=== PATIENT | female | born 1975 | race Caucasian/White ===

== ENCOUNTER 2017-12-20 09:12 | Emergency (ER) | payer SELFPAY ==
[2017-12-20] MEDS ORDERED: MORPHINE 4 MG/ML SYR ONE (09:55)
[2017-12-20] MEDS ORDERED: ONDANSETRON 4 MG/2 ML VIAL ONE (09:55)
[2017-12-20] MEDS ORDERED: NA CHLORIDE 0.9% 1,000 ML ONE (09:55)
[2017-12-20 10:09] LABS: Glomerular Filtration Rate > 60 mL/min (>60)
[2017-12-20 10:11] LABS: Bicarbonate 23 mEq/L (21-31); Glucose Level 119 mg/dL (65-120); Potassium 3.4 mEq/L (3.6-5.0); Sodium Level 137 mEq/L (135-145)
[2017-12-20 10:17] LABS: ALT/SGPT 19 IU/L (10-60); AST/SGOT 38 IU/L (10-42); Albumin 3.6 g/dL (3.2-5.5); Alkaline Phosphatase 110 IU/L (42-121); BUN Blood Urea Nitrogen 7 mg/dL (6-20); Bilirubin Direct 0.1 mg/dL (0-0.2); Bilirubin Total 0.3 mg/dL (0.3-1.2); Glomerular Filtration Rate > 90 mL/min (=/>90)
[2017-12-20 10:31] LABS: Absolute Lymphocytes (CBC) 0.5 K/uL (0.7-4.9); Absolute Monocytes 1.1 K/uL (0.1-1.3); Absolute Neutrophil 6.7 K/uL (1.8-8.0); Basophils % 0.5 % (0-1.3); Eosinophils % 0.1 % (0-4.4); Hematocrit 42.2 % (36.0-45.0); MCH 33.5 pg (27.0-35.0); MCV 99.4 fL (80-100); Monocytes % 13.2 % (3.3-12.3); RBC Red Blood Cell Count 4.25 M/uL (3.86-4.86)
[2017-12-20 11:06] LABS: Urine Blood 2+ (NEG); Urine Glucose NEGATIVE (NEG); Urine Protein 1+ (NEG); Urine pH 6.5 (5.0-7.0)
[2017-12-20 11:13] LABS: Urine Bacteria >50 /HPF (<20); Urine Culture Reflex Order REFLEXED
--- NOTE | 2017-12-20 11:15 | RAD REPORT ---
EXAM DESCRIPTION: CT - Abdomen Pelvis W Contrast - 12/20/2017 11:04 am CLINICAL HISTORY: Abdominal pain, dysuria COMPARISON: None. TECHNIQUE: Biphasic, helical CT imaging of the abdomen and pelvis was performed following 100 ml non -ionic IV contrast. Oral contrast was given. All CT scans are performed using dose optimization technique as appropriate and may include automated exposure control or mA/KV adjustment according to patient size. FINDINGS: No suspicious findings in the lung bases. No focal liver lesions are seen within an upper normal sized liver. Attenuation indicates a mild diff use fatty infiltration. No splenomegaly or focal splenic finding. Pancreas and peripancreatic tissues are unremarkable. Gallbladder is distended but not dilated. No mass or wall thickening seen. Gallsto lianna can be occult on CT imaging. No biliary tree dilatation. Multiple areas of heterogeneous, diminished enhancement are seen throughout the right renal parenchym a. Normal enhancement pattern seen in the left kidney. In the right kidney there is mild edema change and trace stranding in the perinephric fat. No obstructing or nonobstructing calculi. No solid mass of the kidney seen. No adrenal abnormality seen. Urinary bladder is fully contracted. This limits as sessment put wall thickening or enhancement are not suspected. Uterus and ovaries show no suspicious findings. Multiple phleboliths are present. No gastric dilatation, wall thickening or mass. No small bowel abnormality. Cecum is low-lying in the pelvis abutting the dome of the contracted bladder. There is a large amount of stool distending the cecum in the patient has overall moderately large stool volume from cecum to splenic flexure. No colo n wall thickening, mass or edema. The appendix is normal. No free air, free fluid or pneumatosis. No inflammatory stranding other than the trace amount near the right kidney. No hernia, mass or bulky lymphadenopathy. No suspicious bony findings. IMPRESSION: Moderate severity right-sided pyelonephritis with no abscess or other complicating facto r. No hydronephrosis of either kidney. No acute left renal finding. Limited assessment of contracted eric dder. No significant cystitis or mass identifiable. Large amount of stool mildly dilates the cecum which is low lying along the floor the pelvis. Patient overall has a large amount of stool filling the colon from cecum to splenic flexure.
--- NOTE | 2017-12-20 11:50 | EDPHYS ---
Physician Documentation [facility] Name: Abby Hughes Age: 42 yrs Sex: Female : 1975 Arrival Date: 12/20/2017 Time: 09:16 Bed 13 Private MD: ED Physician Marvel Paez HPI: 12/20 09:55 This 42 yrs old Female presents to ER via Ambulatory with complaints of left jr8 sided flank pain. 09:55 The patient complains of pain in the left flank. The pain radiates. Onset: The jr8 symptoms/episode began/occurred acutely, 3 day(s) ago. Modifying factors: The symptoms are alleviated by nothing. the symptoms are aggravated by nothing. Associated signs and symptoms: Pertinent positives: dysuria, fever, nausea. Severity of pain: At its worst the pain was moderate in the emergency department the pain is unchanged. The patient has not experienced similar symptoms in the past. The patient has not recently seen a physician. 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 - Social history:: Smoking status: Patient/guardian denies using tobacco. ROS: 09:55 Eyes: Negative for injury, pain, redness, and discharge, ENT: Negative for injury, jr8 pain, and discharge, Neck: Negative for injury, pain, and swelling, Cardiovascular: Negative for chest pain, palpitations, and edema, Respiratory: Negative for shortness of breath, cough, wheezing, and pleuritic chest pain, MS/Extremity: Negative for injury and deformity, Skin: Negative for injury, rash, and discoloration, Neuro: Negative for headache, weakness, numbness, tingling, and seizure. 09:55 Abdomen/GI: Positive for abdominal pain, nausea, vomiting, Negative for diarrhea, abdominal distension, anorexia, dysphagia, hematemesis, black/tarry stool, rectal pain, rectal bleeding, bowel incontinence, flatulence. 09:55 Back: Positive for flank pain, on the left. 09:55 : Positive for burning with urination, Negative for small amounts, vaginal discharge. Exam: 09:55 Eyes: Pupils equal round and reactive to light, extra-ocular motions intact. Lids and jr8 lashes normal. Conjunctiva and sclera are non-icteric and not injected. Cornea within normal limits. Periorbital areas with no swelling, redness, or edema. ENT: Nares patent. No nasal discharge, no septal abnormalities noted. Tympanic membranes are normal and external auditory canals are clear. Oropharynx with no redness, swelling, or masses, exudates, or evidence of obstruction, uvula midline. Mucous membranes moist. Neck: Trachea midline, no thyromegaly or masses palpated, and no cervical lymphadenopathy. Supple, full range of motion without nuchal rigidity, or vertebral point tenderness. No Meningismus. Cardiovascular: Regular rate and rhythm with a normal S1 and S2. No gallops, murmurs, or rubs. Normal PMI, no JVD. No pulse deficits. Respiratory: Lungs have equal breath sounds bilaterally, clear to auscultation and percussion. No rales, rhonchi or wheezes noted. No increased work of breathing, no retractions or nasal flaring. Skin: Warm, dry with normal turgor. Normal color with no rashes, no lesions, and no evidence of cellulitis. MS/ Extremity: Pulses equal, no cyanosis. Neurovascular intact. Full, normal range of motion. Neuro: Awake and alert, GCS 15, oriented to person, place, time, and situation. Cranial nerves II-XII grossly intact. Motor strength 5/5 in all extremities. Sensory grossly intact. Cerebellar exam normal. Normal gait. 09:55 Abdomen/GI: Inspection: abdomen appears normal, Bowel sounds: active, all quadrants, Palpation: soft, in all quadrants, moderate abdominal tenderness, in the anterior aspect of left lateral abdomen and left lower quadrant, mass, is not appreciated, rebound tenderness, is not appreciated, voluntary guarding, is not appreciated, involuntary guarding, is not appreciated, no appreciated organomegaly, Indicators: McBurney's point is not tender, Najera's sign is negative, Rovsing's sign is negative, Liver: no appreciated palpable abnormalities, tenderness, is not appreciated. 09:55 Back: pain, that is moderate, of the left flank, ROM is normal, normal spinal alignment noted, CVA tenderness, that is mild, is noted on the left, vertebral tenderness, is not appreciated. Vital Signs: 09:22 BP 148 / 111; Pulse 126; Resp 20; Temp 98.1(O); Pulse Ox 99% on R/A; Weight 58.97 kg rb1 (R); Height 5 ft. 2 in. (157.48 cm) (R); Pain 9/10; 10:20 BP 143 / 91; Pulse 91; Resp 18; Pulse Ox 98% on R/A; Pain 6/10; rb1 11:19 BP 145 / 93; Pulse 89; Resp 17; Pulse Ox 100% on R/A; rb1 12:18 BP 143 / 91; Pulse 62; Resp 16; Pulse Ox 98% on R/A; rb1 09:22 Body Mass Index 23.78 (58.97 kg, 157.48 cm) rb1 MDM: 09:31 Patient medically screened. jr8 11:48 Differential diagnosis: nephrolithiasis, pyelonephritis, UTI, diverticulitis, non jr8 specific abdominal pain, ovarian mass or cyst, constipation. Data reviewed: vital signs, nurses notes, lab test result(s), radiologic studies, CT scan, and as a result, I will discharge patient. Data interpreted: Pulse oximetry: on room air is 98 %. Interpretation: normal. Counseling: I had a detailed discussion with the patient and/or guardian regarding: the historical points, exam findings, and any diagnostic results supporting the discharge/admit diagnosis, lab results, radiology results, the need for outpatient follow up, a family practitioner, to return to the emergency department if symptoms worsen or persist or if there are any questions or concerns that arise at home. 11:48 Special discussion: Based on the patient's Hx, exam, and Dx evaluation, there is no jr8 indication for emergent surgery or inpatient Tx. It is understood by the patient/guardian that if the Sx's persist or worsen they need to return immediately for re-evaluation. I have referred the patient to see his PCP for further evaluation of high blood pressure. 12/20 09:31 Order name: Basic Metabolic Panel; Complete Time: 10:8 12/20 09:31 Order name: CBC with Diff; Complete Time: :8 12/20 09:31 Order name: Creatinine for Radiology; Complete Time: 10:8 12/20 09:31 Order name: Hepatic Function; Complete Time: : jr8 12/20 09:31 Order name: Urine Microscopic Only; Complete Time: 11:13 8 12/20 10:48 Order name: Urine Dipstick--Ancillary (enter results); Complete Time: 11:07 12/20 10:10 Order name: CT Abd/Pelvis - W/Contrast; Complete Time: 11:18 8 12/20 10:48 Order name: Urine --Ancillary (enter results); Complete Time: 11:07 12/20 11:15 Order name: Urine Culture [facility] 12/20 09:31 Order name: Urine Test (obtain specimen); Complete Time: 10:36 [facility] 12/20 09:31 Order name: IV Saline Lock; Complete Time: 09:52 12/20 09:31 Order name: Labs collected and sent; Complete Time: 09:52 12/20 09:31 Order name: Urine Dipstick-Ancillary (obtain specimen); Complete Time: 10:36 [facility] 12/20 10:12 Order name: Labs - recollect needed; Complete Time: 10:38 bd Administered Medications: 09:45 Drug: NS 0.9% 1000 ml Route: IV; Rate: 1000 ml; Site: left antecubital; rb1 10:46 Follow up: IV Status: Completed infusion rb1 09:45 Drug: morphine 4 mg Route: IVP; Site: left antecubital; rb1 10:00 Follow up: Response: No adverse reaction; Pain is decreased rb1 09:45 Drug: Zofran 4 mg Route: IVP; Site: left antecubital; rb1 10:00 Follow up: Response: No adverse reaction; Nausea is decreased rb1 11:30 Drug: Potassium Chloride 40 mEq Route: PO; rb1 12:00 Follow up: Response: No adverse reaction rb1 11:30 Drug: Rocephin 1 grams Route: IV; Rate: calculated rate; Site: left antecubital; rb1 11:50 Drug: Demerol 25 mg Route: IVP; Site: left antecubital; rb1 12:18 Follow up: Response: No adverse reaction; Pain is decreased rb1 Disposition: 14:44 Co-signature as Attending Physician, Marvel Paez MD. Disposition: 12/20/17 11:50 Discharged to Home. Impression: Acute tubulo-interstitial nephritis, Constipation. - Condition is Stable. - Discharge Instructions: Constipation, Adult, Pyelonephritis, Adult. - Prescriptions for Augmentin 875- 125 mg Oral Tablet - take 1 tablet by ORAL route every 12 hours for 10 days; 20 tablet. Zofran 4 mg Oral Tablet - take 1 tablet by ORAL route every 12 hours As needed; 20 tablet. Tramadol 50 mg Oral Tablet - take 1 tablet by ORAL route every 8 hours as needed; 12 tablet. Miralax 17 gram/dose Oral - take 1 packet by ORAL route once daily dilute powder in 8 ounces of water or juice; 1 box. - Medication Reconciliation Form, Thank You Letter, Antibiotic Education, Prescription Opioid Use form. - Follow up: Private Physician; When: 1 - 2 days; Reason: Recheck today's complaints, Continuance of care, Re-evaluation by your physician. - Problem is new. - Symptoms have improved. Signatures: Dispatcher [employer] EDMS Valarie Paul Josh, PA PA jr8 Linda Mckenna, RN RN rb1 Marvel Paez MD MD
--- NOTE | 2017-12-20 11:50 | ER ---
Nurse's Notes [facility] Name: Abby Hughes Age: 42 yrs Sex: Female : 1975 Arrival Date: 12/20/2017 Time: 09:16 Bed 13 Private MD: Diagnosis: Acute tubulo-interstitial nephritis;Constipation Presentation: 12/20 09:22 Presenting complaint: Patient states: I have had pain when I go pee since Sunday. I rb1 have a sharp shooting pain that goes down my left leg. Transition of care: patient was not received from another setting of care. Onset of symptoms was December 17, 2017. Care prior to arrival: None. : Method Of Arrival: Ambulatory [facility] 09: Acuity: LIZZIE 3 rb1 Triage Assessment: : General: Appears uncomfortable, Behavior is calm, cooperative, Reports fever for 2-3 rb1 days. Pain: Complains of pain in suprapubic area, right lower quadrant and left lower quadrant Pain radiates to left leg Pain currently is 9 out of 10 on a pain scale. Pain began 2-3 days ago. Neuro: Level of Consciousness is awake, alert, obeys commands, Oriented to person, place, time, situation. Cardiovascular: Capillary refill < 3 seconds is brisk in bilateral fingers. Respiratory: Airway is patent Respiratory effort is even, unlabored, Respiratory pattern is regular, symmetrical. GI: Reports nausea. : Reports pain with urination. Derm: Skin is pink, warm \T\ dry. Musculoskeletal: Range of motion: intact in all extremities. 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 - Social history:: Smoking status: Patient/guardian denies using tobacco. Screenin: Abuse screen: Denies threats or abuse. Nutritional screening: No deficits noted. rb1 Tuberculosis screening: No symptoms or risk factors identified. Fall Risk None identified. Assessment: : General: See triage assessment. rb1 09: GI: Bowel sounds present X 4 quads. Abd is soft Abdomen is tender to palpation in rb1 suprapubic area and left lower quadrant. 10:00 Reassessment: Patient appears in no apparent distress at this time. Patient and/or rb1 family updated on plan of care and expected duration. Pain level reassessed. Patient is alert, oriented x 3, equal unlabored respirations, skin warm/dry/pink. 10:26 Reassessment: Called lab to let them know that blood was recollected through the second rb1 IV, it had the stickers without the bar code. Lab will check the tubes and let us know if a recollect is still needed. 10:35 Reassessment: Kristy, lab support technician called lab to confirm that they received the recollect labs rb1 and AJ said yes they had it. 11:30 Reassessment: Patient appears in no apparent distress at this time. Patient and/or rb1 family updated on plan of care and expected duration. Pain level reassessed. Patient is alert, oriented x 3, equal unlabored respirations, skin warm/dry/pink. pain 8/10. 12:16 Reassessment: Patient appears in no apparent distress at this time. No changes from rb1 previously documented assessment. Vital Signs: 09:22 BP 148 / 111; Pulse 126; Resp 20; Temp 98.1(O); Pulse Ox 99% on R/A; Weight 58.97 kg rb1 (R); Height 5 ft. 2 in. (157.48 cm) (R); Pain 9/10; 10:20 BP 143 / 91; Pulse 91; Resp 18; Pulse Ox 98% on R/A; Pain 6/10; rb1 11:19 BP 145 / 93; Pulse 89; Resp 17; Pulse Ox 100% on R/A; rb1 12:18 BP 143 / 91; Pulse 62; Resp 16; Pulse Ox 98% on R/A; rb1 09:22 Body Mass Index 23.78 (58.97 kg, 157.48 cm) rb1 ED Course: 09:16 Patient arrived in ED. sb2 09:21 Linda Mckenna, TANYA is Primary Nurse. rb1 09:21 Casey Martin PA is PHCP. jr8 09:21 Marvel Paez MD is Attending Physician. jr8 09:22 Arm band placed on left wrist. rb1 09:22 Patient has correct armband on for positive identification. Placed in gown. Bed in low rb1 position. Call light in reach. Side rails up X 1. Pulse ox on. NIBP on. 09:28 Triage completed. rb1 09:45 Inserted saline lock: 22 gauge in left antecubital area, using aseptic technique. Blood rb1 collected. 10:01 Initial lab(s) drawn, by me, sent to lab. Missed attempt(s): 20 gauge in right ag antecubital area. Bleeding controlled, band aid applied, catheter tip intact. 10:21 Radiology exam delayed due to test not completed at this time. vr 11:04 CT Abd/Pelvis - W/Contrast In Process Unspecified. EDMS 12:17 No provider procedures requiring assistance completed. IV discontinued, intact, rb1 bleeding controlled, No redness/swelling at site. Pressure dressing applied. Administered Medications: 09:45 Drug: NS 0.9% 1000 ml Route: IV; Rate: 1000 ml; Site: left antecubital; rb1 10:46 Follow up: IV Status: Completed infusion rb1 09:45 Drug: morphine 4 mg Route: IVP; Site: left antecubital; rb1 10:00 Follow up: Response: No adverse reaction; Pain is decreased rb1 09:45 Drug: Zofran 4 mg Route: IVP; Site: left antecubital; rb1 10:00 Follow up: Response: No adverse reaction; Nausea is decreased rb1 11:30 Drug: Potassium Chloride 40 mEq Route: PO; rb1 12:00 Follow up: Response: No adverse reaction rb1 11:30 Drug: Rocephin 1 grams Route: IV; Rate: calculated rate; Site: left antecubital; rb1 11:50 Drug: Demerol 25 mg Route: IVP; Site: left antecubital; rb1 12:18 Follow up: Response: No adverse reaction; Pain is decreased rb1 Outcome: 11:50 Discharge ordered by MD. fuentes 12:17 Discharged to home ambulatory, with significant other. rb1 12:17 Condition: stable 12:17 Discharge instructions given to patient, Instructed on discharge instructions, follow up and referral plans. medication usage, Demonstrated understanding of instructions, follow-up care, medications, Prescriptions given X 4. 12:17 Patient left the ED. rb1 Signatures: Dispatcher [employer] EDMS Helen Salazar Josh, PA PA jr8 Kristy Ferrell Rebecca, RN RN rb1 Balbina Laboy sb2 Corrections: (The following items were deleted from the chart) 12: 12:20 Patient left the ED. rb1 rb1
[2017-12-20] MEDS ORDERED: POTASSIUM CL SA 10 MEQ TAB PO ONE (11:51)
[2017-12-20] MEDS ORDERED: CEFTRIAXONE/SWI 1gm 1 GM/10 ML SYR ONE (11:52)
[2017-12-20] MEDS ORDERED: MEPERIDINE HCL 25 MG/0.5 ML ONE (12:04)
== END 2017-12-20 12:20 | disposition home or self-care (01) ==
LOC: ER 09:12
DX: N12 Tubulo-interstitial nephritis, not specified as acute or chronic (principal); K59.00 Constipation, unspecified
CPT/HCPCS: 36415; 74177; 80048; 80076; 81003; 81015; 81025; 85025; 87077; 87086; 87088; 87186; 96361; 96374; 96375; 99284; J0696; J2175; J2405; J7030; Q9967

== ENCOUNTER 2018-09-10 18:27 | Observation (INO) | payer SELFPAY ==
[2018-09-10] MEDS ORDERED: LORazepam 2 MG/ML VIAL ONE ×2 (18:58→22:34)
[2018-09-10] MEDS ORDERED: MULTIVITAMINS 10 ML VIAL (INJ) IV ONE (18:58)
[2018-09-10] MEDS ORDERED: THIAMINE 200 MG/2 ML INJ ONE ×2 (18:58→19:19)
[2018-09-10] MEDS ORDERED: NA CHLORIDE 0.9% 1,000 ML ONE ×2 (18:58→19:20)
[2018-09-10] MEDS ORDERED: ONDANSETRON 4 MG/2 ML VIAL ONE (19:19)
[2018-09-10] MEDS ORDERED: FAMOTIDINE 20 MG/2 ML VIAL IV ONE (19:19)
[2018-09-10 19:27] LABS: Absolute Monocytes 0.8 K/uL (0.1-1.3); Absolute Neutrophil 7.4 K/uL (1.8-8.0); Basophils % 0.8 % (0-1.3); Eosinophils % 0.1 % (0-4.4); Hematocrit 48.3 % (36.0-45.0); Lymphocytes % 10.5 % (15.3-44.8); MCH 33.5 pg (27.0-35.0); MCV 100.1 fL (80-100); MPV 8.6 fL (7.6-11.3); Monocytes % 8.4 % (3.3-12.3); RBC Red Blood Cell Count 4.82 M/uL (3.86-4.86)
[2018-09-10 19:36] LABS: Protime INR 0.96
[2018-09-10 19:53] LABS: ALT/SGPT 84 U/L (12-78); AST/SGOT 115 U/L (15-37); Albumin 4.3 g/dL (3.4-5.0); Alkaline Phosphatase 114 U/L (45-117); BUN Blood Urea Nitrogen 14 mg/dL (7-18); Bicarbonate 25 mmol/L (21-32); Bilirubin Direct 0.3 mg/dL (0-0.2); Bilirubin Total 1.1 mg/dL (0.2-1.0); Glucose Level 91 mg/dL (74-106); Lipase 116 U/L (73-393); NT PRO-BNP 23 pg/mL (<125); Potassium 3.8 mmol/L (3.5-5.1); Protein, Total 8.9 g/dL (6.4-8.2); Sodium Level 135 mmol/L (136-145); Troponin (Emerg Dept Use Only) < 0.02 ng/mL (0.0-0.045)
--- NOTE | 2018-09-10 19:55 | RAD REPORT ---
EXAM DESCRIPTION: RAD - Chest Single View - 09/10/2018 7:43 pm CLINICAL HISTORY: Left-sided chest and abdominal pain COMPARISON: None. TECHNIQUE: AP portable chest image was obtained 1933 hours . FINDINGS: Lungs are clear. Heart and vasculature are normal. No measurable pleural effusion and no p neumothorax. No acute bony abnormality seen. No acute aortic findings suspected. IMPRESSION: No acute cardiopulmonary process.
[2018-09-10 20:05] LABS: Barbiturates NEGATIVE (NEGATIVE); Benzodiazepines NEGATIVE (NEGATIVE); Cocaine NEGATIVE (NEGATIVE); METHAMPHETAM NEGATIVE (NEGATIVE); Methadone NEGATIVE (NEGATIVE); Opiates NEGATIVE (NEGATIVE); Phencyclidine NEGATIVE (NEGATIVE); THC Cannibis POSITIVE (NEGATIVE)
--- NOTE | 2018-09-10 20:08 | ER ---
Nurse's Notes [facility] Name: Abby Hughes Age: 43 yrs Sex: Female : 1975 Arrival Date: 09/10/2018 Time: 18:30 Bed 2 Private MD: None, None Diagnosis: Alcohol abuse;Alcohol dependence with withdrawal;Abdominal tenderness;Essential (primary) hypertension;Vomiting Presentation: 09/10 18:34 Presenting complaint: Patient states: pain to L abdomen/side, vomiting, headache, and ch high blood pressure for the past 4 days. its all just getting worse. Transition of care: patient was not received from another setting of care. Onset of symptoms was September 06, 2018. Risk Assessment: Do you want to hurt yourself or someone else? Patient reports no desire to harm self or others. Initial Sepsis Screen: Does the patient meet any 2 criteria? No. Patient's initial sepsis screen is negative. Does the patient have a suspected source of infection? No. Patient's initial sepsis screen is negative. Care prior to arrival: None. 18:34 Method Of Arrival: Ambulatory 18:34 Acuity: LIZZIE 2 Triage Assessment: 18:35 General: Appears in no apparent distress. uncomfortable, Behavior is cooperative, ch agitated, restless. Pain: Complains of pain in posterior aspect of left lateral abdomen, anterior aspect of left lateral abdomen, left upper quadrant and left lower quadrant Pain currently is 8 out of 10 on a pain scale. GI: Reports lower abdominal pain, upper abdominal pain. 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 - Social history:: Smoking status: Patient/guardian denies using tobacco, Patient uses alcohol, on a daily basis. claims drinking about a 6 pack/day. for about 6 months on a "naqvi". - Ebola Screening: : Patient negative for fever greater than or equal to 101.5 degrees Fahrenheit, and additional compatible Ebola Virus Disease symptoms Patient denies exposure to infectious person Patient denies travel to an Ebola-affected area in the 21 days before illness onset No symptoms or risks identified at this time. - Family history:: not pertinent. Screenin:08 Abuse screen: Denies threats or abuse. Nutritional screening: No deficits noted. jd3 Tuberculosis screening: No symptoms or risk factors identified. Fall Risk Ambulatory Aid- None/Bed Rest/Nurse Assist (0 pts). Gait- Normal/Bed Rest/Wheelchair (0 pts) Mental Status- Oriented to own ability (0 pts). Total Cook Fall Scale indicates No Risk (0-24 pts). Assessment: 18:42 Reassessment: erp gives verbal orders, pt medicated. seizure precautions in place. 20:06 Reassessment: Patient appears in no apparent distress at this time. No changes from [facility] previously documented assessment. Patient and/or family updated on plan of care and expected duration. Pain level reassessed. Patient is alert, oriented x 3, equal unlabored respirations, skin warm/dry/pink. GI: Abdomen is round non-distended, Reports nausea. 22:18 Reassessment: Patient appears in no apparent distress at this time. No changes from [facility] previously documented assessment. Patient and/or family updated on plan of care and expected duration. Pain level reassessed. Patient is alert, oriented x 3, equal unlabored respirations, skin warm/dry/pink. 22:25 Reassessment: Patient is alert, oriented x 3, equal unlabored respirations, skin bb warm/dry/pink. IV site intact, patent with fluids infusing, spouse at bedside. 22:30 Reassessment: report called to Ly MARTÍNEZ for room 216. Vital Signs: 18:35 BP 185 / 116; Pulse 135; Resp 22; Temp 99.1; Pulse Ox 99% on R/A; Weight 63.5 kg; Height 5 ft. 2 in. (157.48 cm); Pain 8/10; 20:07 Pulse 107; Resp 15 S; Pulse Ox 100% on R/A; jd3 22:18 BP 117 / 74; Pulse 116; Resp 20 S; Pulse Ox 98% on R/A; jd3 22:25 BP 147 / 110; Pulse 114; Resp 18 S; Temp 98.8(O); Pulse Ox 97% on R/A; bb 18:35 Body Mass Index 25.61 (63.50 kg, 157.48 cm) ED Course: 18:30 Patient arrived in ED. sb2 18:31 None, None is Private Physician. sb2 18:35 Triage completed. ch 18:35 Arm band placed on left wrist. Patient placed in an exam room, on a stretcher. ch 18:42 Patient has correct armband on for positive identification. Placed in gown. Bed in low ch position. Call light in reach. Side rails up X2. Adult w/ patient. Seizure precautions initiated. 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 Pulse ox on. NIBP on. Warm blanket given. 18:42 Inserted saline lock: 18 gauge in left antecubital area, using aseptic technique. Blood ch collected. 18:50 Edvin Ashford MD is Attending Physician. [facility] 19:02 Radiology exam delayed due to lab results not completed at this time. (BUN/Creatinine). nj 19:43 XRAY Chest (1 view) In Process Unspecified. EDMS 20:05 Ivan Alejandro RN is Primary Nurse. jd3 20:06 Kobe Aaorn MD is Hospitalizing Provider. jeanine 20:13 CT Aorta for Dissection In Process Unspecified. EDMS 22:31 No provider procedures requiring assistance completed. Patient admitted, IV remains in bb place. Administered Medications: 18:42 Drug: Ativan 2 mg Route: IVP; Site: left antecubital; ch 19:40 Follow up: Response: No adverse reaction jd3 18:42 Drug: Banana Bag - (NS 0.9% 1000 ml, foLIC Acid 1 mg, Thiamine 100 mg, Multivitamin 1 ch amp) Route: IV; Rate: 125 ml/hr; Site: left antecubital; 22:34 Follow up: Response: No adverse reaction; IV Status: Infusion continued upon admission jd3 19:28 Drug: Thiamine 100 mg Route: IV; Rate: bolus; Site: left antecubital; ak1 22:35 Follow up: Response: No adverse reaction; IV Status: Completed infusion jd3 19:28 Drug: NS 0.9% 1000 ml Route: IV; Rate: 1 bolus; Site: left antecubital; ak1 22:36 Follow up: Response: No adverse reaction; IV Status: Completed infusion jd3 19:28 Drug: Zofran 4 mg Route: IVP; Site: left antecubital; ak1 22:36 Follow up: Response: No adverse reaction jd3 19:28 Drug: Pepcid 20 mg Route: IVP; Site: left antecubital; ak1 22:37 Follow up: Response: No adverse reaction jd3 22:22 Not Given (Physician Discretion): fentaNYL (PF) 25 mcg IVP once jd3 22:23 Not Given (Physician Discretion): fentaNYL (PF) 25 mcg IVP once jd3 22:30 Drug: Ativan 2 mg Route: IVP; Site: left antecubital; jd3 22:38 Follow up: Response: No adverse reaction jd3 Outcome: 20:07 Decision to Hospitalize by Provider. jeanine 22:31 Admitted to Tele accompanied by tech, family with patient, via wheelchair, room 216, bb with chart, Report called to Ly MARTÍNEZ 22:31 Condition: stable 22:31 Instructed on the need for admit. 22:41 Patient left the ED. jd3 Signatures: Dispatcher [employer] EDMS Ashley Rhodes, RN RN Edvin Chandra MD MD cha Ballard, Brenda RN RN Sonya Coronel RN RN ak1 Allen Siddiqui Jonathon, RN RN Balbina Magana
--- NOTE | 2018-09-10 20:08 | EDPHYS ---
Physician Documentation [facility] Name: Abby Hughes Age: 43 yrs Sex: Female : 1975 Arrival Date: 09/10/2018 Time: 18:30 Bed 2 Private MD: None, None ED Physician Edvin Ashford HPI: 09/10 19:03 This 43 yrs old Female presents to ER via Ambulatory with complaints of Flank jeanine Pain, Vomiting. 19:03 The patient complains of pain in the left low back and left mid back. The pain radiates jeanine to the left low back and left mid back. Onset: The symptoms/episode began/occurred 1 day(s) ago. Modifying factors: The symptoms are alleviated by nothing. the symptoms are aggravated by movement, palpation/percussion. Associated signs and symptoms: Pertinent positives: dizziness, nausea, vomiting. Severity of pain: At its worst the pain was moderate in the emergency department the pain is unchanged. The patient has not experienced similar symptoms in the past. [employer]: 18:35 LMP 09/10/2018 ch Historical: - Allergies: 18:35 No Known Allergies; ch - Home Meds: 18:35 None [Active]; ch - PMHx: 18:35 Hypertension; Migraines; ch - PSHx: 18:35 ; ch 18:35 Tubal ligation; ch - Immunization history:: Adult Immunizations up to date, Flu vaccine is not up to date. - Social history:: Smoking status: Patient/guardian denies using tobacco, Patient uses alcohol, on a daily basis. claims drinking about a 6 pack/day. for about 6 months on a "naqvi". - Ebola Screening: : Patient negative for fever greater than or equal to 101.5 degrees Fahrenheit, and additional compatible Ebola Virus Disease symptoms Patient denies exposure to infectious person Patient denies travel to an Ebola-affected area in the 21 days before illness onset No symptoms or risks identified at this time. - Family history:: not pertinent. ROS: 19:03 Constitutional: Negative for fever, chills, and weight loss, Eyes: Negative for injury, jeanine pain, redness, and discharge, ENT: Negative for injury, pain, and discharge, Neck: Negative for injury, pain, and swelling, Cardiovascular: Negative for chest pain, palpitations, and edema, Respiratory: Negative for shortness of breath, cough, wheezing, and pleuritic chest pain, : Negative for injury, bleeding, discharge, and swelling, MS/Extremity: Negative for injury and deformity, Skin: Negative for injury, rash, and discoloration, Neuro: Negative for headache, weakness, numbness, tingling, and seizure, Psych: Negative for depression, anxiety, suicide ideation, homicidal ideation, and hallucinations, Allergy/Immunology: Negative for hives, rash, and allergies, Endocrine: Negative for neck swelling, polydipsia, polyuria, polyphagia, and marked weight changes, Hematologic/Lymphatic: Negative for swollen nodes, abnormal bleeding, and unusual bruising. 19:03 Abdomen/GI: Positive for abdominal pain, nausea and vomiting, nausea, abdominal cramps, of the posterior aspect of left lateral abdomen, anterior aspect of left lateral abdomen and left upper quadrant. Exam: 19:03 Constitutional: This is a well developed, well nourished patient who is awake, alert, jeanine and in no acute distress. Head/Face: Normocephalic, atraumatic. Eyes: Pupils equal round and reactive to light, extra-ocular motions intact. Lids and lashes normal. Conjunctiva and sclera are non-icteric and not injected. Cornea within normal limits. Periorbital areas with no swelling, redness, or edema. ENT: Nares patent. No nasal discharge, no septal abnormalities noted. Tympanic membranes are normal and external auditory canals are clear. Oropharynx with no redness, swelling, or masses, exudates, or evidence of obstruction, uvula midline. Mucous membranes moist. Neck: Trachea midline, no thyromegaly or masses palpated, and no cervical lymphadenopathy. Supple, full range of motion without nuchal rigidity, or vertebral point tenderness. No Meningismus. Chest/axilla: Normal chest wall appearance and motion. Nontender with no deformity. No lesions are appreciated. Respiratory: Lungs have equal breath sounds bilaterally, clear to auscultation and percussion. No rales, rhonchi or wheezes noted. No increased work of breathing, no retractions or nasal flaring. Skin: Warm, dry with normal turgor. Normal color with no rashes, no lesions, and no evidence of cellulitis. MS/ Extremity: Pulses equal, no cyanosis. Neurovascular intact. Full, normal range of motion. Neuro: Awake and alert, GCS 15, oriented to person, place, time, and situation. Cranial nerves II-XII grossly intact. Motor strength 5/5 in all extremities. Sensory grossly intact. Cerebellar exam normal. Normal gait. 19:03 Cardiovascular: Rate: tachycardic, Rhythm: regular, Pulses: Pulses are 4+ in bilateral radial, brachial, femoral, popliteal, posterior tibial and and dorsalis pedis arteries.. Heart sounds: normal, normal S1and S2, no S3 or S4, no murmur, no rub, no gallop, Edema: is not appreciated, JVD: is not appreciated. Vital Signs: 18:35 BP 185 / 116; Pulse 135; Resp 22; Temp 99.1; Pulse Ox 99% on R/A; Weight 63.5 kg; Height 5 ft. 2 in. (157.48 cm); Pain 8/10; 20:07 Pulse 107; Resp 15 S; Pulse Ox 100% on R/A; jd3 22:18 BP 117 / 74; Pulse 116; Resp 20 S; Pulse Ox 98% on R/A; jd3 22:25 BP 147 / 110; Pulse 114; Resp 18 S; Temp 98.8(O); Pulse Ox 97% on R/A; bb 18:35 Body Mass Index 25.61 (63.50 kg, 157.48 cm) MDM: 18:50 Patient medically screened. [facility] 19:05 Data reviewed: vital signs, nurses notes, lab test result(s), EKG, radiologic studies, [facility] CT scan, plain films. 09/10 18:56 Order name: Urine Drug Screen 09/10 18:58 Order name: Basic Metabolic Panel; Complete Time: 20:05 [facility] 09/10 18:58 Order name: CBC with Diff; Complete Time: 20:05 [facility] 09/10 18:58 Order name: LFT's; Complete Time: 20:05 [facility] 09/10 18:58 Order name: Magnesium; Complete Time: 20:05 [facility] 09/10 18:58 Order name: NT PRO-BNP; Complete Time: 20:05 [facility] 09/10 18:58 Order name: PT-INR; Complete Time: 20:05 [facility] 09/10 18:58 Order name: Troponin (emerg Dept Use Only); Complete Time: 20:05 [facility] 09/10 18:58 Order name: Acetaminophen; Complete Time: 20:05 [facility] 09/10 18:58 Order name: ETOH Level; Complete Time: 20:05 [facility] 09/10 18:58 Order name: Ptt, Activated; Complete Time: 20:05 [facility] 09/10 18:58 Order name: Salicylate; Complete Time: 21:06 [facility] 09/10 18:58 Order name: Urine Drug Screen; Complete Time: 21:06 [facility] 09/10 18:58 Order name: Lipase; Complete Time: 20:05 [facility] 09/10 19:59 Order name: Urine Dipstick--Ancillary (enter results); Complete Time: 21:06 nh 09/10 19:59 Order name: Urine --Ancillary (enter results); Complete Time: 21:06 nh 09/10 21:47 Order name: CBC with Automated Diff EDMS 09/10 21:47 Order name: CBC with Automated Diff EDMS 09/10 21:47 Order name: Comprehensive Metabolic Panel EDMS 09/10 18:56 Order name: EKG; Complete Time: 18:57 09/10 18:56 Order name: Cardiac monitoring; Complete Time: 19:34 09/10 18:56 Order name: EKG - Nurse/Tech; Complete Time: 19:34 09/10 18:56 Order name: IV Saline Lock; Complete Time: 19:34 09/10 18:56 Order name: Labs collected and sent; Complete Time: 19:34 09/10 18:56 Order name: O2 Per Protocol; Complete Time: 19:34 09/10 18:56 Order name: O2 Sat Monitoring; Complete Time: 19:34 09/10 18:58 Order name: XRAY Chest (1 view); Complete Time: 20:05 [facility] 09/10 18:58 Order name: EKG; Complete Time: 18:59 [facility] 09/10 18:58 Order name: Cardiac monitoring; Complete Time: 19:33 [facility] 09/10 18:58 Order name: EKG - Nurse/Tech; Complete Time: 19:33 [facility] 09/10 18:58 Order name: IV Saline Lock; Complete Time: 19:33 [facility] 09/10 18:58 Order name: Labs collected and sent; Complete Time: 19:33 [facility] 09/10 18:58 Order name: CT Aorta for Dissection; Complete Time: 21:06 [facility] 09/10 21:47 Order name: CONS Pharmacy Consult EDIA 09/10 21:47 Order name: Clear Liquid EDIA 09/10 21:47 Order name: Comprehensive Metabolic Panel EDIA 09/10 21:47 Order name: Protime (+INR) EDIA 09/10 21:47 Order name: Protime (+INR) EDIA 09/10 21:47 Order name: PTT, Activated Partial Thromb EDIA 09/10 21:47 Order name: PTT, Activated Partial Thromb EDIA 09/10 18:58 Order name: O2 Per Protocol; Complete Time: 19:33 jeanine 09/10 18:58 Order name: O2 Sat Monitoring; Complete Time: 19:33 jeanine Administered Medications: 18:42 Drug: Ativan 2 mg Route: IVP; Site: left antecubital; 19:40 Follow up: Response: No adverse reaction jd3 18:42 Drug: Banana Bag - (NS 0.9% 1000 ml, foLIC Acid 1 mg, Thiamine 100 mg, Multivitamin 1 ch amp) Route: IV; Rate: 125 ml/hr; Site: left antecubital; 22:34 Follow up: Response: No adverse reaction; IV Status: Infusion continued upon admission jd3 19:28 Drug: Thiamine 100 mg Route: IV; Rate: bolus; Site: left antecubital; ak1 22:35 Follow up: Response: No adverse reaction; IV Status: Completed infusion jd3 19:28 Drug: NS 0.9% 1000 ml Route: IV; Rate: 1 bolus; Site: left antecubital; ak1 22:36 Follow up: Response: No adverse reaction; IV Status: Completed infusion jd3 19:28 Drug: Zofran 4 mg Route: IVP; Site: left antecubital; ak1 22:36 Follow up: Response: No adverse reaction jd3 19:28 Drug: Pepcid 20 mg Route: IVP; Site: left antecubital; ak1 22:37 Follow up: Response: No adverse reaction jd3 22:22 Not Given (Physician Discretion): fentaNYL (PF) 25 mcg IVP once jd3 22:23 Not Given (Physician Discretion): fentaNYL (PF) 25 mcg IVP once jd3 22:30 Drug: Ativan 2 mg Route: IVP; Site: left antecubital; jd3 22:38 Follow up: Response: No adverse reaction jd3 Disposition: 09/10/18 20:07 Hospitalization ordered by Kobe Aaron for Observation. Preliminary diagnosis are Alcohol abuse, Alcohol dependence with withdrawal, Abdominal tenderness, Essential (primary) hypertension, Vomiting. - Bed requested for Telemetry/MedSurg (observation). - Status is Observation. jd3 - Condition is Fair. - Problem is new. - Symptoms have improved. UTI on Admission? No Signatures: Dispatcher [employer] EDMS Ashley Rhodes RN RN ch Lewis, Kimberly, RN RN kl Anderson, Corey, MD MD cha Krenek, Amber RN RN ak1 Ivan Alejandro RN RN jd3 Corrections: (The following items were deleted from the chart) 19:08 18:57 Chest Single View+RAD.RAD.BRZ ordered. EDIA EDMS 19:33 18:56 Urine Dipstick-Ancillary ordered. [facility] 20:27 18:57 PROTIME (+INR)+COAG.LAB.BRZ ordered. EDIA EDMS 20:27 18:57 PTT, ACTIVATED+COAG.LAB.BRZ ordered. EDIA EDMS 20:29 18:57 BASIC METABOLIC PANEL+C.LAB.BRZ ordered. EDIA EDMS 20:29 18:57 CBC+H.LAB.BRZ ordered. EDMS EDMS 20:29 18:57 HEPATIC FUNCTION+C.LAB.BRZ ordered. EDIA EDMS 20:29 18:57 MAGNESIUM+C.LAB.BRZ ordered. EDIA EDMS 20:29 18:57 PROBNP+C.LAB.BRZ ordered. EDIA EDMS 20:29 18:57 TROPONIN (EMERG DEPT USE ONLY)+C.LAB.BRZ ordered. EDIA EDMS 20:29 18:57 ACETAMINOPHEN+C.LAB.BRZ ordered. EDMS EDMS 20:29 18:57 ETHANOL+C.LAB.BRZ ordered. EDMS EDMS 20:29 18:57 SALICYLATE+C.LAB.BRZ ordered. EDIA EDMS 21:09 20:07 Hospitalization Ordered by Kobe Aaron MD for Observation. Preliminary jeanine diagnosis is Alcohol abuse; Alcohol dependence with withdrawal; Abdominal tenderness; Essential (primary) hypertension. Bed requested for Telemetry/MedSurg (observation). Status is Observation. Condition is Fair. Problem is new. Symptoms have improved. UTI on Admission? No. jeanine 21:57 21:09 09/10/2018 20:07 Hospitalization Ordered by Kobe Aaron MD for Observation. kl Preliminary diagnosis is Alcohol abuse; Alcohol dependence with withdrawal; Abdominal tenderness; Essential (primary) hypertension; Vomiting. Bed requested for Telemetry/MedSurg (observation). Status is Observation. Condition is Fair. Problem is new. Symptoms have improved. UTI on Admission? No. jeanine 22:41 21:57 09/10/2018 20:07 Hospitalization Ordered by Kobe Aaron MD for Observation. jd3 Preliminary diagnosis is Alcohol abuse; Alcohol dependence with withdrawal; Abdominal tenderness; Essential (primary) hypertension; Vomiting. Bed requested for Telemetry/MedSurg (observation). Status is Observation. Condition is Fair. Problem is new. Symptoms have improved. UTI on Admission? No. kl
[2018-09-10 20:19] LABS: Urine Blood 3+ (NEG); Urine Glucose NEGATIVE (NEG); Urine Protein 2+ (NEG); Urine Specific Gravity >1.030 (1.005-1.030)
--- NOTE | 2018-09-10 20:27 | RAD REPORT ---
EXAM DESCRIPTION: CT - Angio Aorta For Dissection - 09/10/2018 8:12 pm CLINICAL HISTORY: Left-sided chest and abdominal pain COMPARISON: Chest films same date TECHNIQUE: Dynamically enhanced 3 mm thick images of the chest, abdomen, and upper pelvis were obtai karishma during administration of approximately 150mL Isovue 370 IV contrast. Sagittal and coronal reconst ruction images were generated using MIP and reviewed. Exam utilizes a protocol to evaluate entire cou rse of the aorta. All CT scans are performed using dose optimization technique as appropriate and may include automated exposure control or mA/KV adjustment according to patient size. FINDINGS: Aorta is normal in diameter with no dissection or other acute aortic findings. Reconstruct ion images show no significant findings. Pulmonary arteries are normal as well. No cardiomegaly, pericardial thickening or pericardial effusio n. No mass or infiltrate in the lung parenchyma. No pleural thickening, pleural effusion or pneumothorax . No abnormal mediastinal or hilar mass or lymphadenopathy seen. No chest wall mass or abnormal axillar y lymphadenopathy. Celiac, SMA and renal arteries show no suspicious findings. No acute bowel finding. Patient does have a small to moderate-sized hiatal hernia. Liver shows a pronounced fatty infiltration pattern with no focal liver lesion. The spleen, pancreas, gallbladder, biliary tree, adrenal glands and kidneys show no suspicious findings. No mass or abnor mal lymphadenopathy. No free air, free fluid or inflammatory stranding. No urinary bladder abnormalit y. Uterus and ovaries show no suspicious findings. No significant bone or skeletal muscle finding. IMPRESSION: Negative CT scan of the aorta. Diffuse fatty infiltration of the liver. Small to moderate-sized hiatal hernia.
[2018-09-10] MEDS ORDERED: ONDANSETRON 4 MG/2 ML VIAL IV PRN (21:44)
[2018-09-10] MEDS ORDERED: ACETAMINOPHEN 500 MG TAB PO PRN (21:44)
[2018-09-10] MEDS ORDERED: MORPHINE 2 MG/ML SYR IV PRN (21:44)
[2018-09-10] MEDS: NA CHLORIDE 0.9% 1,000 ML IV SCH (23:04)
[2018-09-11] MEDS ORDERED: LORazepam 2 MG/ML VIAL IV PRN ×3 (00:17→22:50)
[2018-09-11] MEDS: LORazepam 2 MG/ML VIAL IV PRN ×2 (01:08→07:57)
[2018-09-11 01:19] VITALS: O2SAT 97
[2018-09-11 01:33] VITALS: BMI 26.4
[2018-09-11 07:00] LABS: Absolute Lymphocytes (CBC) 0.9 K/uL (0.7-4.9); Absolute Monocytes 0.5 K/uL (0.1-1.3); Basophils % 0.6 % (0-1.3); Eosinophils % 0.7 % (0-4.4); Hematocrit 38.1 % (36.0-45.0); Lymphocytes % 20.1 % (15.3-44.8); MCH 33.8 pg (27.0-35.0); MCV 99.3 fL (80-100); MPV 8.4 fL (7.6-11.3); Monocytes % 11.3 % (3.3-12.3); RBC Red Blood Cell Count 3.83 M/uL (3.86-4.86)
[2018-09-11 07:02] LABS: Protime INR 0.95
[2018-09-11 07:23] LABS: ALT/SGPT 52 U/L (12-78); AST/SGOT 59 U/L (15-37); Albumin 2.9 g/dL (3.4-5.0); Alkaline Phosphatase 75 U/L (45-117); BUN Blood Urea Nitrogen 9 mg/dL (7-18); Bicarbonate 24 mmol/L (21-32); Bilirubin Total 0.9 mg/dL (0.2-1.0); Glucose Level 87 mg/dL (74-106); Potassium 3.6 mmol/L (3.5-5.1); Protein, Total 6.1 g/dL (6.4-8.2); Sodium Level 140 mmol/L (136-145)
[2018-09-11 07:27] VITALS: BP 149/85; TEMP 97.8
--- NOTE | 2018-09-11 07:43 | EKG ---
Test Date: 2018-09-10 Test Time: 18:58:06 Tier Over: CLIF MEASUREMENT RESULTS: Intervals: Rate: 113 HI: 138 QRSD: 76 QT: 338 QTc: 463 [place]: P: 64 HI: 138 QRS: 31 T: 47 INTERPRETIVE STATEMENTS: Sinus tachycardia Otherwise normal ECG No previous ECG available for comparison Electronically Signed On 09-11-18 07:43:20 WASHING MACHINE LOADER by Codey Arteaga
[2018-09-11] MEDS: NA CHLORIDE 0.9% 1,000 ML IV SCH (08:00)
[2018-09-11] MEDS ORDERED: MULTIVITAMIN TAB PO SCH (09:00)
[2018-09-11] MEDS ORDERED: THIAMINE 200 MG/2 ML INJ IVP SCH (09:00)
[2018-09-11] MEDS ORDERED: FOLIC ACID 1 MG, MULTIVITAMINS INJ 10 ML, THIAMINE HCL 100 MG in NA CHLORIDE 0.9% 1,000 ML IV SCH (09:00)
--- NOTE | 2018-09-11 09:20 | P.HP ---
Certification for Inpatient Patient admitted to: Observation With expected LOS: <2 Midnights Patient will require the following post-hospital care: None Practitioner: I am a practitioner with admitting privileges, knowledge of patient current condition, hospital course, and medical plan of care. Services: Services provided to patient in accordance with Admission requirements found in Title 42 Section 412.3 of the Code of Federal Regulations Patient History Date of Service: 09/10/18 Reason for admission: Intractable nausea and vomiting/alcohol abuse and intoxication History of Present Illness: Patient is a 43-year-old female came in total with abdominal pain along with intractable nausea and vomiting. Patient has been drinking heavily over the last 6 months. She has had a lot of stressors. According to the patient, her somewhat talk to her. Her daughter moved in with her and 3 children. She is having a lot did the within for the 1st time in her life she drank 6 months ago. Since then she been drinking very heavily. She has developed a dependency on the alcohol. However, she suddenly started having nausea and vomiting. This is been going on for the last 24 hr. She became lightheaded and near syncopal. She came into the hospital for further workup. Allergies No Known Allergies Allergy (Verified 09/10/18 22:50) Home Medications: NK [No Home Meds] 09/10/18 - Past Medical/Surgical History Has patient received pneumonia vaccine in the past: No Diabetic: No -: anxiety -: hypertension -: alcohol dependence -: c-sections 2x -: tubal ligation - Family History Mother Medical History: Diabetes parents Medical History: Hypertension - Social History Smoking Status: Current every day smoker Alcohol use: Yes CD- Drugs: Yes Caffeine use: Yes Place of Residence: Home Review of Systems 10-point ROS is otherwise unremarkable Physical Examination - Vital Signs Temperature: 97.8 F Blood Pressure: 149/85 Pulse: 91 Respirations: 16 Pulse Ox (%): 97 - Physical Exam General: Alert, In no apparent distress, Oriented x3 HEENT: Atraumatic, PERRLA, Mucous membr. moist/pink, EOMI, Sclerae nonicteric Neck: Supple, 2+ carotid pulse no bruit, No LAD, Without JVD or thyroid abnormality Respiratory: Clear to auscultation bilaterally, Normal air movement Cardiovascular: Regular rate/rhythm, Normal S1 S2, No murmurs Gastrointestinal: Soft and benign, Non-distended, No tenderness, No rebound, No guarding Musculoskeletal: No clubbing, No swelling, No tenderness Integumentary: No rashes Neurological: Normal gait, Normal speech, Normal strength at 5/5 x4 extr, Normal tone, Sensation intact, Cranial nerves 3-12 intact, Normal affect Lymphatics: No axilla or inguinal lymphadenopathy - Studies Laboratory Data (last 24 hrs) 09/10/18 19:10: PT 11.3, INR 0.96, APTT 28.2 09/10/18 19:10: WBC 9.3, Hgb 16.1 H, Hct 48.3 H, Plt Count 241 09/10/18 19:10: Sodium 135 L, Potassium 3.8, BUN 14, Creatinine 1.00, Glucose 91 , Magnesium 2.0, Total Bilirubin 1.1 H, AST 115 H, ALT 84 H, Alkaline Phosphatase 114, Lipase 116 09/10/18 18:56: PT Cancelled, INR Cancelled, APTT Cancelled 09/10/18 18:56: WBC Cancelled, Hgb Cancelled, Hct Cancelled, Plt Count Cancelled 09/10/18 18:56: Sodium Cancelled, Potassium Cancelled, BUN Cancelled, Creatinine Cancelled, Glucose Cancelled, Magnesium Cancelled, Total Bilirubin Cancelled, AST Cancelled, ALT Cancelled, Alkaline Phosphatase Cancelled Assessment & Plan - Problems (Diagnosis) (1) Alcohol intoxication Current Visit: Yes Status: Acute (2) Elevated liver enzymes Current Visit: Yes Status: Acute (3) Intractable nausea and vomiting Current Visit: Yes Status: Acute (4) Epigastric pain Current Visit: Yes Status: Acute - Plan 1. Continue with IV hydration 2. Continue with IV anti emetic 3. Continue with pain control as needed 4. NPO to clear liquid diet in the morning if feeling better 5. Serial H&H, and we will monitor CBC, BMP, LFTs and lipase along with electrolytes. 6. GI and DVT prophylaxis Discharge Plan: Home Plan to discharge in: 48 Hours - Advance Directives Does patient have a Living Will: No Does patient have a Durable POA for Healthcare: No - Code Status/Comfort Care Code Status Assessed: Yes Code Status: Full Code Critical Care: No Time Spent Managing PTS Care (In Minutes): 50
--- NOTE | 2018-09-11 14:17 | P.SSS ---
Patient History Date of Service: 09/11/18 Reason for admission: Intractable nausea and vomiting/alcohol abuse and intoxication History of Present Illness: Patient is a 43-year-old female came in total with abdominal pain along with intractable nausea and vomiting. Patient has been drinking heavily over the last 6 months. She has had a lot of stressors. According to the patient, her somewhat talk to her. Her daughter moved in with her and 3 children. She is having a lot did the within for the 1st time in her life she drank 6 months ago. Since then she been drinking very heavily. She has developed a dependency on the alcohol. However, she suddenly started having nausea and vomiting. This is been going on for the last 24 hr. She became lightheaded and near syncopal. She came into the hospital for further workup. Allergies No Known Allergies Allergy (Verified 09/10/18 22:50) Home Medications: NK [No Home Meds] 09/10/18 - Past Medical/Surgical History Has patient received pneumonia vaccine in the past: No Diabetic: No -: anxiety -: hypertension -: alcohol dependence -: c-sections 2x -: tubal ligation - Family History Mother -: Diabetes parents -: Hypertension - Social History Smoking Status: Current every day smoker Alcohol use: Yes CD- Drugs: Yes Caffeine use: Yes Place of Residence: Home Review of Systems 10-point ROS is otherwise unremarkable Physical Examination - Vital Signs Temperature: 97.8 F Blood Pressure: 149/85 Pulse: 91 Respirations: 16 Pulse Ox (%): 97 - Physical Exam General: Alert, In no apparent distress HEENT: Atraumatic, PERRLA, Mucous membr. moist/pink, EOMI, Sclerae nonicteric Neck: Supple, 2+ carotid pulse no bruit, No LAD, Without JVD or thyroid abnormality Respiratory: Clear to auscultation bilaterally, Normal air movement Cardiovascular: Regular rate/rhythm, Normal S1 S2 Gastrointestinal: Normal bowel sounds, No tenderness Musculoskeletal: No tenderness Integumentary: No rashes Neurological: Normal gait, Normal speech, Normal strength at 5/5 x4 extr, Normal tone, Normal affect Lymphatics: No axilla or inguinal lymphadenopathy - Studies Laboratory Data (last 24 hrs) 09/10/18 19:10: PT 11.3, INR 0.96, APTT 28.2 09/10/18 19:10: WBC 9.3, Hgb 16.1 H, Hct 48.3 H, Plt Count 241 09/10/18 19:10: Sodium 135 L, Potassium 3.8, BUN 14, Creatinine 1.00, Glucose 91 , Magnesium 2.0, Total Bilirubin 1.1 H, AST 115 H, ALT 84 H, Alkaline Phosphatase 114, Lipase 116 09/10/18 18:56: PT Cancelled, INR Cancelled, APTT Cancelled 09/10/18 18:56: WBC Cancelled, Hgb Cancelled, Hct Cancelled, Plt Count Cancelled 09/10/18 18:56: Sodium Cancelled, Potassium Cancelled, BUN Cancelled, Creatinine Cancelled, Glucose Cancelled, Magnesium Cancelled, Total Bilirubin Cancelled, AST Cancelled, ALT Cancelled, Alkaline Phosphatase Cancelled - Diagnosis (Problem(s)) (1) Alcohol intoxication Status: Acute Qualifiers: Complication of substance-induced condition: uncomplicated Qualified Code(s ): F10.920 - Alcohol use, unspecified with intoxication, uncomplicated (2) Elevated liver enzymes Status: Resolved (3) Intractable nausea and vomiting Status: Acute Qualifiers: Vomiting type: unspecified Qualified Code(s): R11.2 - Nausea with vomiting , unspecified Treatment Summary: Overall during the hospital stay patient remained stable Patient was initially admitted to the hospital for alcohol intoxication and elevated LFTs. Patient had marked resolution after IV fluids here in the hospital. Patient's LFTs normalized and then patient was discharge home. - Disposition Disposition: ROUTINE DISCHARGE Condition: GOOD Patient Discharge Instructions: Please establish Care with PCP in the area and f.u in 1 to 2 week post discharge. Please do not use Alcohol, Cigrattes and Tylenol or acetemephon containing products to avoid future liver damange. Diet: Regular Activity: Ad jessie
[2018-09-12] MEDS ORDERED: LORazepam 2 MG/ML VIAL IV PRN ×2 (00:17)
[2018-09-13] MEDS ORDERED: LORazepam 2 MG/ML VIAL IV PRN ×3 (00:20)
== END 2018-09-11 09:35 | disposition home or self-care (01) ==
LOC: ER 18:27 → 2ND 21:45
PROVIDERS: ADMIT Hospitalist; ATTEND Hospitalist
DX: F10.129 Alcohol abuse with intoxication, unspecified (principal); R11.2 Nausea with vomiting, unspecified; F41.9 Anxiety disorder, unspecified; I10 Essential (primary) hypertension; R74.8 Abnormal levels of other serum enzymes; F17.210 Nicotine dependence, cigarettes, uncomplicated
CPT/HCPCS: 36415; 71045; 71275; 74175; 80048; 80053; 80076; 80307; 80320; 80329; 81003; 81025; 83690; 83735; 83880; 84484; 85025; 85610; 85730; 93005; 94760; 96365; 96366; 96375; 99285; G0378; J2405; J3411; J7030; Q9967

== ENCOUNTER 2018-11-02 10:39 | Observation (INO) | payer SELFPAY ==
[2018-11-02] MEDS ORDERED: ONDANSETRON 4 MG/2 ML VIAL ONE (11:20)
[2018-11-02] MEDS ORDERED: LORazepam 2 MG/ML VIAL ONE ×2 (11:20→13:43)
[2018-11-02 11:30] LABS: Absolute Lymphocytes (CBC) 1.5 K/uL (0.7-4.9); Absolute Neutrophil 6.6 K/uL (1.8-8.0); Basophils % 0.8 % (0-1.3); Eosinophils % 0.6 % (0-4.4); Hematocrit 45.1 % (36.0-45.0); Lymphocytes % 16.2 % (15.3-44.8); MPV 8.1 fL (7.6-11.3); RBC Red Blood Cell Count 4.58 M/uL (3.86-4.86)
[2018-11-02 11:43] LABS: Protime INR 0.98
[2018-11-02 11:48] LABS: Bilirubin Direct 0.5 mg/dL (0-0.2); Bilirubin Total 1.6 mg/dL (0.2-1.0); Potassium 3.1 mmol/L (3.5-5.1); Protein, Total 8.2 g/dL (6.4-8.2)
[2018-11-02] MEDS ORDERED: MULTIVITAMINS INJ 10 ML, FOLIC ACID 1 MG, THIAMINE HCL 100 MG in NA CHLORIDE 0.9% 1,000 ML IV ONE (12:00)
--- NOTE | 2018-11-02 13:01 | EDPHYS ---
Physician Documentation [facility] Name: Abby Hughes Age: 43 yrs Sex: Female : 1975 Arrival Date: 11/02/2018 Time: 10:41 Bed 8 Private MD: None, None ED Physician Cortes Cortes HPI: 11/02 11:30 This 43 yrs old Female presents to ER via Ambulatory with complaints of pm1 Nausea/Vomiting. 11:30 The patient presents to the emergency department with nausea, vomiting, diarrhea, pm1 abdominal pain. Onset: The symptoms/episode began/occurred 1 week(s) ago. Possible causes: sick contacts, by family, children and grandchildren with vomiting and diarrhea. The symptoms are aggravated by nothing. The symptoms are alleviated by nothing. Associated signs and symptoms: Pertinent positives: dysuria, Pertinent negatives: fever. The patient has experienced similar episodes in the past, a few times. The patient has not recently seen a physician, and does not have an established primary care provider. Patient wants to stop drinking. Last drink of Vodka at 2100 yesterday. Drinks 1 shot of vodka every 1-2 hours. Consumes 1/2 gallon of vodka every two days. Historical: - Allergies: 10:58 No Known Allergies; hb - Home Meds: 10:58 None [Active]; hb - PMHx: 10:58 Hypertension; Migraines; hb - PSHx: 10:58 Tubal ligation; ; hb - Immunization history:: Adult Immunizations up to date. - Social history:: Smoking status: Patient/guardian denies using tobacco. - Ebola Screening: : No symptoms or risks identified at this time. ROS: 11:30 Constitutional: Negative for fever, chills, and weight loss, Eyes: Negative for injury, pm1 pain, redness, and discharge, ENT: Negative for injury, pain, and discharge, Neck: Negative for injury, pain, and swelling, Cardiovascular: Negative for chest pain, palpitations, and edema, Respiratory: Negative for shortness of breath, cough, wheezing, and pleuritic chest pain. 11:30 Back: Negative for injury and pain, MS/Extremity: Negative for injury and deformity, Skin: Negative for injury, rash, and discoloration, Neuro: Negative for headache, weakness, numbness, tingling, and seizure. 11:30 Abdomen/GI: Positive for abdominal pain, nausea, vomiting, and diarrhea, of the left lower quadrant. 11:30 Neuro: Positive for tremor, onset a few months ago. pm1 11:30 : Positive for burning with urination. pm1 Exam: 11:30 Head/Face: Normocephalic, atraumatic. Eyes: Pupils equal round and reactive to light, pm1 extra-ocular motions intact. Lids and lashes normal. Conjunctiva and sclera are non-icteric and not injected. Cornea within normal limits. Periorbital areas with no swelling, redness, or edema. ENT: Nares patent. No nasal discharge, no septal abnormalities noted. Tympanic membranes are normal and external auditory canals are clear. Oropharynx with no redness, swelling, or masses, exudates, or evidence of obstruction, uvula midline. Mucous membranes moist. Neck: Trachea midline, no thyromegaly or masses palpated, and no cervical lymphadenopathy. Supple, full range of motion without nuchal rigidity, or vertebral point tenderness. No Meningismus. Chest/axilla: Normal chest wall appearance and motion. Nontender with no deformity. No lesions are appreciated. Cardiovascular: Regular rate and rhythm with a normal S1 and S2. No gallops, murmurs, or rubs. Normal PMI, no JVD. No pulse deficits. Respiratory: Lungs have equal breath sounds bilaterally, clear to auscultation and percussion. No rales, rhonchi or wheezes noted. No increased work of breathing, no retractions or nasal flaring. Abdomen/GI: Soft, non-tender, with normal bowel sounds. No distension or tympany. No guarding or rebound. No evidence of tenderness throughout. Back: No spinal tenderness. No costovertebral tenderness. Full range of motion. Skin: Warm, dry with normal turgor. Normal color with no rashes, no lesions, and no evidence of cellulitis. MS/ Extremity: Pulses equal, no cyanosis. Neurovascular intact. Full, normal range of motion. 11:30 Constitutional: The patient appears in no acute distress, alert, awake, comfortable, non-diaphoretic, non-toxic, well developed, well groomed, well nourished. 11:30 Neuro: Orientation: is normal, Mentation: is normal, Motor: moves all fours, Abnormal movements: resting tremor, is located in the right arm and left arm. Vital Signs: 10:56 Pulse 148; Resp 18; Temp 98.2; Pulse Ox 97% on R/A; Pain 5/10; hb 11:11 BP 130 / 104; sv 11:23 BP 128 / 102; Pulse 120; Resp 20; Pulse Ox 96% on R/A; sv 11:57 BP 123 / 95; Pulse 113; Resp 18; Pulse Ox 96% ; sv 12:38 BP 122 / 79; Pulse 111; Resp 18; Pulse Ox 96% ; sv 13:43 BP 125 / 99; Pulse 110; Resp 18; Pulse Ox 96% ; sv MDM: 10:46 Patient medically screened. pm1 12:58 Physician consultation: Vikash Mensah DO was contacted at 12:58, regarding admission, pm1 patient's condition, in the emergency department to see patient at 12:58, Wants urine culture - straight cath sample, GC urine. 13:01 Data reviewed: vital signs. Data interpreted: Pulse oximetry: on room air is 96 %. pm1 Interpretation: normal. 13:01 Counseling: I had a detailed discussion with the patient and/or guardian regarding: the pm1 historical points, exam findings, and any diagnostic results supporting the discharge/admit diagnosis, lab results, the need for further work-up and treatment in the hospital. 11/02 11:02 Order name: Basic Metabolic Panel; Complete Time: 11:55 pm1 11/02 11:02 Order name: CBC with Diff; Complete Time: 11:55 pm1 11/02 11:02 Order name: Creatinine for Radiology; Complete Time: 11:55 pm1 11/02 11:02 Order name: Hepatic Function; Complete Time: 11:55 pm1 11/02 11:02 Order name: Lipase; Complete Time: 11:55 pm1 11/02 11:02 Order name: Flu; Complete Time: 11:55 pm1 11/02 11:03 Order name: Acetaminophen; Complete Time: 11:55 pm1 11/02 11:03 Order name: ETOH Level; Complete Time: 11:55 pm1 11/02 11:03 Order name: PT-INR; Complete Time: 11:55 pm1 11/02 11:03 Order name: Ptt, Activated; Complete Time: 11:55 pm1 11/02 11:03 Order name: Salicylate; Complete Time: 11:55 pm1 11/02 11:03 Order name: Urine Drug Screen; Complete Time: 15:25 pm1 11/02 11:14 Order name: Test, Serum; Complete Time: 12:42 sv 11/02 12:57 Order name: Urine Culture pm1 11/02 11:02 Order name: IV Saline Lock; Complete Time: 11:11 pm1 11/02 11:02 Order name: Labs collected and sent; Complete Time: 11:11 pm11/02 11:02 Order name: CT Abd/Pelvis - W/Contrast: IV contrast only; Complete Time: 13:41 pm1 11/02 11:02 Order name: Urine Dipstick-Ancillary (obtain specimen); Complete Time: 13:42 pm1 11/02 11:02 Order name: Urine Test (obtain specimen); Complete Time: 13:42 pm1 11/02 11:03 Order name: EKG; Complete Time: 11:04 pm1 11/02 11:03 Order name: EKG - Nurse/Tech; Complete Time: 11:11 pm1 11/02 12:58 Order name: Straight Cath - Urine; Complete Time: 13:39 pm1 11/02 13:03 Order name: GC (Wan/Chl) Probe URINE EDMS 11/02 13:39 Order name: Urine Dipstick--Ancillary (enter results) eb 11/02 13:42 Order name: US Abdomen Limited pm1 11/02 14:01 Order name: Urine Dipstick-Ancillary; Complete Time: 14:03 EDMS Administered Medications: 11:20 Drug: Ativan 1 mg Route: IVP; Site: right antecubital; sv 11:56 Follow up: Response: No adverse reaction; Marked relief of symptoms sv 11:22 Drug: Zofran 4 mg Route: IVP; Site: right antecubital; sv 11:55 Follow up: Response: No adverse reaction sv 11:54 Drug: Banana Bag - (NS 0.9% 1000 ml, foLIC Acid 1 mg, Thiamine 100 mg, Multivitamin 1 sv amp) Route: IV; Rate: calculated rate; Site: right antecubital; 14:21 Follow up: Response: No adverse reaction; IV Status: Infusion continued upon admission sv 13:35 Drug: Ativan 1 mg Route: IVP; Site: right antecubital; sv 13:53 Follow up: Response: No adverse reaction sv Disposition: 16:12 Co-signature as Attending Physician, Cortes Cortes MD. rn Disposition: 11/02/18 13:00 Hospitalization ordered by Vikash Mensah for Observation. Preliminary diagnosis is Alcohol dependence with withdrawal. - Bed requested for Telemetry/MedSurg (observation). - Status is Observation. sv - Condition is Stable. - Problem is new. - Symptoms have improved. UTI on Admission? No Signatures: Dispatcher [employer] EDJudie Bailey RN RN Cortes Hobson MD MD rn Jim Bruce, CITY WELLNESS COORDINATOR [employer] WELLNESS COORDINATOR pm1 Skyla Graves RN Lina Arauz Corrections: (The following items were deleted from the chart) 13:01 11:30 Back: Negative for injury and pain, : Negative for injury, bleeding, discharge, pm1 and swelling, MS/Extremity: Negative for injury and deformity, Skin: Negative for injury, rash, and discoloration, Neuro: Negative for headache, weakness, numbness, tingling, and seizure, pm1 13:54 13:00 Hospitalization Ordered by Vikash Mensah DO for Observation. Preliminary eb diagnosis is Alcohol dependence with withdrawal. Bed requested for Telemetry/MedSurg (observation). Status is Observation. Condition is Stable. Problem is new. Symptoms have improved. UTI on Admission? No. pm1 14:20 13:54 11/02/2018 13:00 Hospitalization Ordered by Vikash Mensah DO for Observation. sv Preliminary diagnosis is Alcohol dependence with withdrawal. Bed requested for Telemetry/MedSurg (observation). Status is Observation. Condition is Stable. Problem is new. Symptoms have improved. UTI on Admission? No. eb
--- NOTE | 2018-11-02 13:01 | ER ---
Nurse's Notes [facility] Name: Abby Hughes Age: 43 yrs Sex: Female : 1975 Arrival Date: 11/02/2018 Time: 10:41 Bed 8 Private MD: None, None Diagnosis: Alcohol dependence with withdrawal Presentation: 11/02 10:56 Presenting complaint: Patient states: N/V/D and LLQ pain x 1 week. Pt reports drinking hb 1/4 gallon of vodka per day, last drink was 9pm last night. Transition of care: patient was not received from another setting of care. Onset of symptoms was November 02, 2018. Risk Assessment: Do you want to hurt yourself or someone else? Patient reports no desire to harm self or others. Care prior to arrival: None. 10:56 Method Of Arrival: Ambulatory hb 10:56 Acuity: LIZZIE 2 hb 11:12 Initial Sepsis Screen: Does the patient meet any 2 criteria? No. Patient's initial sv sepsis screen is negative. Does the patient have a suspected source of infection? No. Patient's initial sepsis screen is negative. Historical: - Allergies: 10:58 No Known Allergies; hb - Home Meds: 10:58 None [Active]; hb - PMHx: 10:58 Hypertension; Migraines; hb - PSHx: 10:58 Tubal ligation; ; hb - Immunization history:: Adult Immunizations up to date. - Social history:: Smoking status: Patient/guardian denies using tobacco. - Ebola Screening: : No symptoms or risks identified at this time. Screenin:58 Abuse screen: Denies threats or abuse. Denies injuries from another. Nutritional hb screening: No deficits noted. Tuberculosis screening: No symptoms or risk factors identified. Fall Risk Total Cook Fall Scale indicates Low Risk Score (25-44 pts). Fall prevention measures have been instituted. Side Rails Up X 2 Frequent Obs/Assesments occuring As available Patient and Family Educated on Fall Prevention Program and strategies. Assessment: 11:15 General: Appears in no apparent distress. uncomfortable, Behavior is calm, cooperative, sv appropriate for age. Pain: Complains of pain in posterior aspect of right lateral abdomen Pain currently is 5 out of 10 on a pain scale. Neuro: Level of Consciousness is awake, alert, obeys commands, Oriented to person, place, time, situation, Moves all extremities. Full function Speech is normal. Respiratory: Respiratory effort is even, unlabored, Respiratory pattern is regular, symmetrical. GI: Abdomen is flat, Reports nausea, vomiting. Derm: Skin is normal. Musculoskeletal: Pt noted to be shaking. 11:57 Reassessment: Patient appears in no apparent distress at this time. Patient and/or sv family updated on plan of care and expected duration. Pain level reassessed. Patient is alert, oriented x 3, equal unlabored respirations, skin warm/dry/pink. Patient states feeling better. Patient states symptoms have improved. 13:30 Reassessment: Patient appears in no apparent distress at this time. Patient and/or sv family updated on plan of care and expected duration. Pain level reassessed. Patient is alert, oriented x 3, equal unlabored respirations, skin warm/dry/pink. Pt reports shaking again, informed Jim CAR SUPPLIER. Medication order received. Vital Signs: 10:56 Pulse 148; Resp 18; Temp 98.2; Pulse Ox 97% on R/A; Pain 5/10; hb 11:11 BP 130 / 104; sv 11:23 BP 128 / 102; Pulse 120; Resp 20; Pulse Ox 96% on R/A; sv 11:57 BP 123 / 95; Pulse 113; Resp 18; Pulse Ox 96% ; sv 12:38 BP 122 / 79; Pulse 111; Resp 18; Pulse Ox 96% ; sv 13:43 BP 125 / 99; Pulse 110; Resp 18; Pulse Ox 96% ; sv ED Course: 10:41 Patient arrived in ED. sb2 10:42 None, None is Private Physician. sb2 10:46 Jim Bruce NP is PHCP. pm1 10:46 Cortes Cortes MD is Attending Physician. pm1 10:57 Triage completed. hb 10:57 Arm band placed on. hb 11:07 Judie Mckay, RN is Primary Nurse. sv 11:12 Patient has correct armband on for positive identification. Bed in low position. Call sv light in reach. Pulse ox on. NIBP on. Door closed. Head of bed elevated. 11:20 Seizure precautions initiated. sv 11:21 Initial lab(s) drawn, by me, sent to lab. EKG done, by ED staff, Flu and/or RSV swab ms sent to lab. Inserted saline lock: 20 gauge in right antecubital area, using aseptic technique. Blood collected. 11:33 Radiology exam delayed due to lab results not completed at this time. (BUN/Creatinine). kw1 12:[address] Scan. sv 13:00 Vikash Mensah DO is Hospitalizing Provider. pm1 13:04 CT Abd/Pelvis - W/Contrast: IV contrast only In Process Unspecified. EDMS 13:04 CT completed. Patient tolerated procedure well. Patient moved back from CT. kw1 13:30 Straight cath inserted, using sterile technique, 16 Fr. Specimen obtained. Returned sv clear yellow urine. Patient tolerated well. 13:42 Urine Dipstick--Ancillary (enter results) Sent. sv 14:11 Ultrasound completed. Patient tolerated well. sg3 14:19 No provider procedures requiring assistance completed. Patient admitted, IV remains in sv place. intact. Administered Medications: 11:20 Drug: Ativan 1 mg Route: IVP; Site: right antecubital; sv 11:56 Follow up: Response: No adverse reaction; Marked relief of symptoms sv 11:22 Drug: Zofran 4 mg Route: IVP; Site: right antecubital; sv 11:55 Follow up: Response: No adverse reaction sv 11:54 Drug: Banana Bag - (NS 0.9% 1000 ml, foLIC Acid 1 mg, Thiamine 100 mg, Multivitamin 1 sv amp) Route: IV; Rate: calculated rate; Site: right antecubital; 14:21 Follow up: Response: No adverse reaction; IV Status: Infusion continued upon admission sv 13:35 Drug: Ativan 1 mg Route: IVP; Site: right antecubital; sv 13:53 Follow up: Response: No adverse reaction sv Outcome: 13:00 Decision to Hospitalize by Provider. pm1 14:19 Admitted to Med/surg accompanied by tech, via stretcher, room 219, with chart, Report sv called to Kristy Lund 14:19 Condition: stable 14:19 Instructed on the need for admit. 14:20 Patient left the ED. sv Signatures: Dispatcher [employer] EDJudie Bailey RN RN sv Solis, Maria ms Teo, Jim, CAR SUPPLIER CAR SUPPLIER pm1 Skyla Graves RN RN Scarlet Mendoza kw1 Marti Littlejohn sg3 Balbina Laboy sb2 Corrections: (The following items were deleted from the chart) : 11:23 Pulse 128bpm; Resp 20bpm; Pulse Ox 96% RA; sv sv :24 11:23 BP 128 / 102; Pulse 128bpm; Resp 20bpm; Pulse Ox 96% RA; sv sv
--- NOTE | 2018-11-02 13:22 | RAD REPORT ---
EXAM DESCRIPTION: CT - Abdomen Pelvis W Contrast - 11/02/2018 1:04 pm CLINICAL HISTORY: Abdominal pain/ vomiting and diarrhea. COMPARISON: August 2018 TECHNIQUE: Computed axial tomography of the abdomen pelvis was obtained. 100 cc Isovue-300 was admin istered intravenously. Oral contrast was not requested which limits evaluation of bowel. All CT scans are performed using dose optimization technique as appropriate and may include automated exposure control or mA/KV adjustment according to patient size. FINDINGS: Small to moderate hiatal hernia. Fatty liver. Spleen, pancreas, adrenal and kidneys appear unremarkable. There is no evidence of diverticulitis. Normal appendix Gallbladder distension IMPRESSION: Gallbladder distension. Ultrasound recommended
--- NOTE | 2018-11-02 13:33 | P.HP ---
Certification for Inpatient Patient admitted to: Observation With expected LOS: <2 Midnights Patient will require the following post-hospital care: None Practitioner: I am a practitioner with admitting privileges, knowledge of patient current condition, hospital course, and medical plan of care. Services: Services provided to patient in accordance with Admission requirements found in Title 42 Section 412.3 of the Code of Federal Regulations Patient History Date of Service: 11/02/18 Primary Care Provider: None Reason for admission: Abdominal pain, nausea and vomiting, diarrhea History of Present Illness: 43-year-old female presented emergency room with multiple complaints including abdominal pain, nausea and vomiting along with diarrhea. Patient with history of alcohol abuse. Patient reported abdominal pain to the left lower quadrant sense the last 3 days. This has been getting worse. He rates the pain about a 7/10. Patient also reported increased nausea and vomiting. She she further had watery diarrhea. She mentions some chills. No fever. Symptoms were getting worse so she came to the emergency room. She further admits drinking alcohol excessively. She drinks about 1 qt of vodka per day. Her last drink was 9:00 p.m. yesterday. She reports some sick contacts including a grandchild with Streptococcus pharyngitis. In the ER patient was evaluated. Patient came in with tachycardia. Slight agitation noted Patient was given Ativan in the emergency room. White count 9.2 , hemoglobin 15. Platelet count 252. Sodium 136, potassium 3.1, BUN of 10, creatinine 1.04 with a GFR 57. Glucose 105. test negative. AST elevated at 100. Alcohol level unremarkable. Urine drug screen unremarkable. CT abdomen pending. I was asked to admit the patient for observation. When I saw the patient ER, she was slightly tachycardic but improved. She appeared stable. She was without any significant agitation. Patient admits to increase anxiety at home with multiple family dysfunctional issues. She has unprotected sex with her . She reports some vaginal discharge. Mild dysuria noted. The patient further reports that she was hospitalized sometime in July or August for alcohol withdrawal. Allergies No Known Allergies Allergy (Verified 09/10/18 22:50) Home medications list reviewed: Yes Home Medications: NK [No Home Meds] 09/10/18 - Past Medical/Surgical History Diabetic: No -: Anxiety -: Alcohol abuse -: Increased social/family dysfunction -: c-sections 2x -: tubal ligation Psychosocial/ Personal History: Patient is . She has 2 children. She does not work. - Family History Mother -: Heart disease, Hypertension, Diabetes parents -: Hypertension - Social History Smoking Status: Never smoker Alcohol use: Yes CD- Drugs: Yes Caffeine use: Yes Place of Residence: Home Review of Systems General: Chills, Sweats, Weakness, As per HPI Eyes: Unremarkable ENT: Unremarkable Respiratory: Unremarkable Cardiovascular: Unremarkable Gastrointestinal: Nausea, Vomiting, Abdominal Pain, Diarrhea, As per HPI Genitourinary: Dysuria, As per HPI Musculoskeletal: Unremarkable Integumentary: Unremarkable Neurological: Unremarkable Lymphatics: Unremarkable Physical Examination - Physical Exam General: Alert, In no apparent distress, Oriented x3, Cooperative HEENT: Atraumatic, Normocephalic, PERRLA, Other (Dry mucous membranes), EOMI Neck: Supple, No Thyromegaly Respiratory: Clear to auscultation bilaterally, Normal air movement Cardiovascular: Abnormal pulses (Mild sinus tachycardia) Gastrointestinal: Normal bowel sounds, Soft and benign, Non-distended, No masses , No rebound, No guarding, Tenderness (Minimal pain to the left lower quadrant.) Musculoskeletal: No erythema, No tenderness, No warmth Integumentary: No erythema, No warmth, No cyanosis Neurological: Normal speech, Normal strength at 5/5 x4 extr, Normal tone, Other (No significant agitation noted. Gynecological exam not performed.), Abnormal affect (Slight anxiety noted.) - Studies Laboratory Data (last 24 hrs) 11/02/18 11:00: PT 11.6, INR 0.98, APTT 27.0 11/02/18 11:00: Creatinine 1.04 11/02/18 11:00: WBC 9.2, Hgb 15.0, Hct 45.1 H, Plt Count 252 11/02/18 11:00: Sodium 136, Potassium 3.1 L, BUN 10, Creatinine 1.06, Glucose 105, Total Bilirubin 1.6 H, AST 100 H, ALT 56, Alkaline Phosphatase 94, Lipase 146 Microbiology Data (last 24 hrs): 11/02/18 11:00 Nasopharnyx Influenza Type A Antigen Screen - Final 11/02/18 11:00 Nasopharnyx Influenza Type B Antigen Screen - Final Assessment and Plan - Plan Impression: Nausea, vomiting, left lower quadrant abdominal pain with diarrhea suspect viral gastroenteritis Alcohol abuse with mild agitation with history of alcohol withdrawal Increased stress related to family dysfunction Vaginal discharge Hypokalemia with mild renal insufficiency likely related to dehydration Mild elevation in liver function tests likely related to alcohol Plan: Nausea, vomiting, left lower quadrant abdominal pain with diarrhea suspect viral gastroenteritis: Patient will be admitted for observation. Will provide IV fluids. Will provide medication for agitation. Await CT scan results. Suspect viral gastroenteritis. Will advance diet as tolerated. Will continue to reassess. Anticipate discharge in the next 24 hr. Blood cultures obtained. Urine culture for GC, chlamydia, trichomonas obtained. Will also evaluate for C diff colitis and stool culture. Alcohol abuse with mild agitation with history of alcohol withdrawal: Will start low-dose Librium. Will provide medication for agitation. Will monitor for severe alcohol withdrawal. Increased stress related to family dysfunction: Will recommend patient received counseling as an outpatient. Patient will need to be assessed by her PCP as an outpatient for possible underlying depression/anxiety. Patient may require medication as an outpatient Vaginal discharge: Will obtain urine for evaluation for gonorrhea, chlamydia and Trichomonas. Hypokalemia with mild renal insufficiency likely related to dehydration: Will monitor and replace appropriately. Mild elevation in liver function tests likely related to alcohol: Will send for hepatitis panel and HIV panel. Continue as above. Discharge Plan: Home Plan to discharge in: 24 Hours - Advance Directives Does patient have a Living Will: No Does patient have a Durable POA for Healthcare: No - Code Status/Comfort Care Code Status Assessed: Yes (Patient full code.) Time Spent Managing Pts Care (In Minutes): 55
[2018-11-02 14:00] LABS: Urine Blood TRACE (NEG); Urine Glucose NEGATIVE (NEG); Urine Protein 1+ (NEG); Urine pH 6.5 (5.0-7.0)
[2018-11-02 14:07] LABS: Barbiturates NEGATIVE (NEGATIVE); Benzodiazepines NEGATIVE (NEGATIVE); Cocaine NEGATIVE (NEGATIVE); METHAMPHETAM NEGATIVE (NEGATIVE); Methadone NEGATIVE (NEGATIVE); Opiates NEGATIVE (NEGATIVE); Phencyclidine NEGATIVE (NEGATIVE); THC Cannibis NEGATIVE (NEGATIVE)
--- NOTE | 2018-11-02 14:20 | RAD REPORT ---
EXAM DESCRIPTION: US - Abdomen Exam Limited - 11/02/2018 2:12 pm CLINICAL HISTORY: Abdominal pain. COMPARISON: November 02 cat scan FINDINGS: The gallbladder wall is not thickened. Two gallstones are present measuring about 17 mill imeters. Gallbladder is distended. The biliary tree is normal caliber. IMPRESSION: Cholelithiasis with gallbladder distention
[2018-11-02] MEDS ORDERED: ACETAMINOPHEN 500 MG TAB PO PRN (14:57)
[2018-11-02] MEDS ORDERED: LORazepam 2 MG/ML VIAL IV PRN ×2 (14:57)
[2018-11-02] MEDS ORDERED: ONDANSETRON 4 MG/2 ML VIAL IV PRN (14:57)
[2018-11-02] MEDS: chlordiazePOXIDE HCl 5 MG CAP PO SCH ×2 (16:10→20:19)
[2018-11-02] MEDS: NA CHLORIDE 0.9% 1,000 ML IV SCH ×2 (16:11→20:28)
[2018-11-02 16:26] LABS: Thyroid Stimulating Hormone 0.576 uIU/mL (0.360-3.740)
[2018-11-02] MEDS ORDERED: POTASSIUM 25 MEQ EFFERV TAB PO ONE ×2 (16:29→23:52)
--- NOTE | 2018-11-02 16:47 | RAD REPORT ---
EXAM DESCRIPTION: Heaven Mike (2 Views)11/02/2018 4:23 pm CLINICAL HISTORY: Tachycardia / abdominal pain COMPARISON: None FINDINGS: The lungs appear clear of acute infiltrate. The heart is normal size IMPRESSION: No acute abnormalities displayed
[2018-11-02] MEDS: CIPROFLOXACIN 400mg IV 400 MG/200 ML BAG IV SCH (16:50)
[2018-11-02] MEDS: METRONIDAZOLE 500mg IVPB 500 MG/100 ML BAG IV SCH (16:51)
[2018-11-02 17:51] LABS: Urine Appearance CLEAR; Urine Bilirubin NEGATIVE (NEG); Urine Blood TRACE (NEG); Urine Color YELLOW; Urine Glucose NEGATIVE (NEG); Urine Protein NEGATIVE (NEG); Urine Specific Gravity >=1.030 (1.005-1.030); Urine pH 6.5 (5.0-7.0)
[2018-11-02 17:54] LABS: Urine Microscopic Reflex ORDER UMIC
[2018-11-02 18:05] VITALS: O2SAT 98
[2018-11-02 18:06] LABS: Urine Bacteria NONE SEEN /HPF (<20); Urine Culture Reflex Order NOT NEEDED; Urine RBC <5 /HPF (NONE SEEN)
[2018-11-02 18:25] VITALS: BMI 25.2
[2018-11-02] MEDS ORDERED: INFLUENZA VACCINE (for 3y+) 0.5 ML DOSE IMVAC ONE (19:00)
[2018-11-02] MEDS: FAMOTIDINE 20 MG TAB PO SCH (20:18)
[2018-11-02 23:47] LABS: Magnesium 1.7 mg/dL (1.8-2.4); Potassium 3.6 mmol/L (3.5-5.1)
[2018-11-02] MEDS ORDERED: MAGNESIUM SULFATE 1 gm IVPB 1 GM/100 ML BAG IV ONE (23:52)
[2018-11-03] MEDS: METRONIDAZOLE 500mg IVPB 500 MG/100 ML BAG IV SCH ×2 (00:46→08:32)
[2018-11-03 05:01] LABS: Absolute Lymphocytes (CBC) 1.1 K/uL (0.7-4.9); Absolute Monocytes 0.6 K/uL (0.1-1.3); Absolute Neutrophil 3.6 K/uL (1.8-8.0); Basophils % 0.8 % (0-1.3); Eosinophils % 1.2 % (0-4.4); Hematocrit 35.1 % (36.0-45.0); Lymphocytes % 20.9 % (15.3-44.8); MPV 8.1 fL (7.6-11.3); Monocytes % 10.6 % (3.3-12.3); RBC Red Blood Cell Count 3.52 M/uL (3.86-4.86)
[2018-11-03 05:23] LABS: ALT/SGPT 33 U/L (12-78); AST/SGOT 49 U/L (15-37); Albumin 2.7 g/dL (3.4-5.0); Alkaline Phosphatase 65 U/L (45-117); BUN Blood Urea Nitrogen 10 mg/dL (7-18); Bicarbonate 26 mmol/L (21-32); Bilirubin Total 0.9 mg/dL (0.2-1.0); Glucose Level 89 mg/dL (74-106); Magnesium 2.2 mg/dL (1.8-2.4); Potassium 3.8 mmol/L (3.5-5.1); Protein, Total 5.3 g/dL (6.4-8.2); Sodium Level 141 mmol/L (136-145)
[2018-11-03] MEDS ORDERED: POTASSIUM 25 MEQ EFFERV TAB PO ONE (06:06)
[2018-11-03] MEDS: NA CHLORIDE 0.9% 1,000 ML IV SCH ×2 (06:57→14:57)
[2018-11-03] MEDS: CIPROFLOXACIN 400mg IV 400 MG/200 ML BAG IV SCH (08:33)
[2018-11-03] MEDS: chlordiazePOXIDE HCl 5 MG CAP PO SCH ×2 (08:35→14:00)
[2018-11-03] MEDS: FAMOTIDINE 20 MG TAB PO SCH (08:36)
[2018-11-03] MEDS ORDERED: FOLIC ACID 1 MG, MULTIVITAMINS INJ 10 ML, THIAMINE HCL 100 MG in NA CHLORIDE 0.9% 1,000 ML IV SCH (09:00)
[2018-11-03] MEDS ORDERED: ENOXAPARIN 40 MG/0.4 ML SQ SCH (09:00)
--- NOTE | 2018-11-03 10:54 | P.DS ---
Admission Date: 11/02/18 Discharge Date: 11/03/18 Primary Care Provider: None Disposition: ROUTINE DISCHARGE Discharge Condition: GOOD Reason for Admission: Abdominal pain, nausea and vomiting, diarrhea Consultations: none Procedures: CT scan: All CT scans are performed using dose optimization technique as appropriate and may include automated exposure control or mA/KV adjustment according to patient size. FINDINGS: Small to moderate hiatal hernia. Fatty liver. Spleen, pancreas, adrenal and kidneys appear unremarkable. There is no evidence of diverticulitis. Normal appendix Gallbladder distension IMPRESSION: Gallbladder distension. Ultrasound recommended ABUS: COMPARISON: November 02 cat scan FINDINGS: The gallbladder wall is not thickened. Two gallstones are present measuring about 17 millimeters. Gallbladder is distended. The biliary tree is normal caliber. IMPRESSION: Cholelithiasis with gallbladder distention CXR: COMPARISON: None FINDINGS: The lungs appear clear of acute infiltrate. The heart is normal size IMPRESSION: No acute abnormalities displayed Medical Problem List: Nausea, vomiting, abdominal pain likely gastroenteritis with noted cholelithiasis without cholecystitis and GERD with hiatal hernia Alcohol abuse with mild agitation with history of alcohol withdrawal Increased stress related to family dysfunction Vaginal discharge Hypokalemia, hypomagnesia with mild renal insufficiency likely related to dehydration Mild elevation in liver function tests likely related to alcohol abuse and noted fatty liver Brief History of Present Illness: 43-year-old female presented emergency room with multiple complaints including abdominal pain, nausea and vomiting along with diarrhea. Patient with history of alcohol abuse. Patient reported abdominal pain to the left lower quadrant sense the last 3 days. This has been getting worse. He rates the pain about a 7/10. Patient also reported increased nausea and vomiting. She she further had watery diarrhea. She mentions some chills. No fever. Symptoms were getting worse so she came to the emergency room. She further admits drinking alcohol excessively. She drinks about 1 qt of vodka per day. Her last drink was 9:00 p.m. yesterday. She reports some sick contacts including a grandchild with Streptococcus pharyngitis. In the ER patient was evaluated. Patient came in with tachycardia. Slight agitation noted Patient was given Ativan in the emergency room. White count 9.2 , hemoglobin 15. Platelet count 252. Sodium 136, potassium 3.1, BUN of 10, creatinine 1.04 with a GFR 57. Glucose 105. test negative. AST elevated at 100. Alcohol level unremarkable. Urine drug screen unremarkable. CT abdomen pending. I was asked to admit the patient for observation. When I saw the patient ER, she was slightly tachycardic but improved. She appeared stable. She was without any significant agitation. Patient admits to increase anxiety at home with multiple family dysfunctional issues. She has unprotected sex with her . She reports some vaginal discharge. Mild dysuria noted. The patient further reports that she was hospitalized sometime in July or August for alcohol withdrawal. Hospital Course: Patient presented with multiple complaints including nausea, vomiting, left lower quadrant abdominal pain with diarrhea. She was found to have dehydration related to alcohol abuse. CT scan unremarkable except for cholelithiasis. Abdominal ultrasound showed cholelithiasis without cholecystitis. Patient with alcohol abuse history. Patient was hydrated upon initial evaluation. Patient was admitted for observation. During the course of her stay her condition improved. Patient without agitation or tachycardia. Patient without significant alcohol withdrawal. Patient was started on antibiotic therapy for suspected vaginal discharge likely underlying infection process and due to cholelithiasis. Following day patient reported some epigastric pain. CT scan did revealed GERD with hiatal hernia and fatty liver. At discharge patient tolerating her diet. Patient without significant abdominal pain. Pro calcitonin negative. No need for antibiotics at discharge. Recommend to follow up with surgery as an outpatient to further address her cholelithiasis. Patient will likely require outpatient laparoscopic cholecystectomy. Dietary and lifestyle modification education will be provided. Recommend to follow up with GI as an outpatient to further address GERD and hiatal hernia. Patient will likely require an EGD as an outpatient. At discharge she will continue with Protonix 40 mg 1 pill once daily. Patient with alcohol abuse. Patient received IV fluids. No significant alcohol withdrawal noted. At discharge she will be given a limited supply of Xanax 0.5 mg twice daily as needed for anxiety. Patient plans to quit. Lifestyle modification addressed in detail. Risks of alcohol abuse addressed. This can be further addressed by her PCP. Patient reported vaginal discharge. Cultures for gonorrhea, chlamydia and Trichomonas obtain. Recommend to follow up with gynecology as an outpatient to further evaluate. Patient will require female examination the outpatient. STD prevention education will be provided. Lab will need to be followed up by her PCP. Patient had electrolyte abnormalities with mild renal insufficiency likely from dehydration. This resolved. Recommend to recheck lab-BMP in 1 week to monitor her progress. Patient had elevation in liver function tests. This was mild. This is likely related to alcohol abuse and fatty liver. Hepatitis panel and HIV panel obtained. This will need to be followed up as an outpatient. Vital Signs/Physical Exam: Temp Pulse Resp BP Pulse Ox 98.1 F 99 H 18 141/76 H 98 11/03/18 08:00 11/03/18 08:00 11/03/18 08:00 11/03/18 08:00 11/03/18 08:00 General: Alert, In no apparent distress, Oriented x3, Cooperative HEENT: Atraumatic Neck: Supple Respiratory: Clear to auscultation bilaterally, Normal air movement Cardiovascular: Normal pulses, Regular rate/rhythm Gastrointestinal: Normal bowel sounds, Soft and benign, Non-distended, No tenderness, No masses, No rebound, No guarding, Other (No significant abdominal pain noted.) Musculoskeletal: No erythema, No tenderness, No warmth Integumentary: No tenderness/swelling, No erythema, No warmth, No cyanosis Neurological: Normal speech, Normal strength at 5/5 x4 extr, Normal tone, Normal affect Laboratory Data at Discharge: WBC 5.4 K/uL (4.3-10.9) D 11/03/18 04:41 Hgb 11.7 g/dL (12.0-15.0) L D 11/03/18 04:41 Hct 35.1 % (36.0-45.0) L D 11/03/18 04:41 Plt Count 170 K/uL (152-406) D 11/03/18 04:41 PT 11.6 SECONDS (9.5-12.5) 11/02/18 11:00 INR 0.98 11/02/18 11:00 APTT 27.0 SECONDS (24.3-36.9) 11/02/18 11:00 Sodium 141 mmol/L (136-145) 11/03/18 04:41 Potassium 3.8 mmol/L (3.5-5.1) 11/03/18 04:41 BUN 10 mg/dL (7-18) 11/03/18 04:41 Creatinine 0.65 mg/dL (0.55-1.3) 11/03/18 04:41 Glucose 89 mg/dL (74-106) 11/03/18 04:41 Magnesium 2.2 mg/dL (1.8-2.4) D 11/03/18 04:41 Total Bilirubin 0.9 mg/dL (0.2-1.0) 11/03/18 04:41 AST 49 U/L (15-37) H 11/03/18 04:41 ALT 33 U/L (12-78) 11/03/18 04:41 Alkaline Phosphatase 65 U/L (45-117) 11/03/18 04:41 Lipase 146 U/L (73-393) 11/02/18 11:00 Home Medications: ALPRAZolam [Xanax] 0.5 mg PO BID PRN #10 tab 11/03/18 Ciprofloxacin HCl [Cipro 500 MG Tablet] 500 mg PO BID #14 tab 11/03/18 Pantoprazole [Protonix Tab] 40 mg PO DAILY #30 tab 11/03/18 metroNIDAZOLE [Flagyl] 500 mg PO Q8H #21 tablet 11/03/18 New Medications: ALPRAZolam [Xanax] 0.5 mg PO BID PRN #10 tab PRN Reason: Anxiety Ciprofloxacin HCl [Cipro 500 MG Tablet] 500 mg PO BID #14 tab metroNIDAZOLE [Flagyl] 500 mg PO Q8H #21 tablet Pantoprazole [Protonix Tab] 40 mg PO DAILY #30 tab Patient Discharge Instructions: 1. Patient will need to establish care and follow up with his PCP. 2. Patient presented with multiple complaints including nausea, vomiting, left lower quadrant abdominal pain with diarrhea. She was found to have dehydration related to alcohol abuse. CT scan unremarkable except for cholelithiasis. Abdominal ultrasound showed cholelithiasis without cholecystitis. Patient with alcohol abuse history. Patient was hydrated upon initial evaluation. Patient was admitted for observation. During the course of her stay her condition improved. Patient without agitation or tachycardia. Patient without significant alcohol withdrawal. Patient was started on antibiotic therapy for suspected vaginal discharge likely underlying infection process and due to cholelithiasis. Following day patient reported some epigastric pain. CT scan did revealed GERD with hiatal hernia and fatty liver. At discharge patient tolerating her diet. Patient without significant abdominal pain. Pro calcitonin negative. No need for antibiotics at discharge. Recommend to follow up with surgery as an outpatient to further address her cholelithiasis. Patient will likely require outpatient laparoscopic cholecystectomy. Dietary and lifestyle modification education will be provided. Recommend to follow up with GI as an outpatient to further address GERD and hiatal hernia. Patient will likely require an EGD as an outpatient. At discharge she will continue with Protonix 40 mg 1 pill once daily. 3. Patient with alcohol abuse. Patient received IV fluids. No significant alcohol withdrawal noted. At discharge she will be given a limited supply of Xanax 0.5 mg twice daily as needed for anxiety. Patient plans to quit. Lifestyle modification addressed in detail. Risks of alcohol abuse addressed. This can be further addressed by her PCP. 4. Patient reported vaginal discharge. Cultures for gonorrhea, chlamydia and Trichomonas obtain. Recommend to follow up with gynecology as an outpatient to further evaluate. Patient will require female examination the outpatient. STD prevention education will be provided. Lab will need to be followed up by her PCP. 5. Patient had electrolyte abnormalities with mild renal insufficiency likely from dehydration. This resolved. Recommend to recheck lab-BMP in 1 week to monitor her progress. 6. Patient had elevation in liver function tests. This was mild. This is likely related to alcohol abuse and fatty liver. Hepatitis panel and HIV panel obtained. This will need to be followed up as an outpatient. Diet: AHA Activity: Ad jessie Time spent managing pt's care (in minutes): 55
--- NOTE | 2018-11-03 10:55 | EKG ---
Test Date: 2018-11-02 Test Time: 11:16:06 Distribution Field Engineer: MEASUREMENT RESULTS: Intervals: Rate: 119 RI: 132 QRSD: 74 QT: 326 QTc: 458 Lane: P: 73 RI: 132 QRS: 42 T: 52 INTERPRETIVE STATEMENTS: Sinus tachycardia Otherwise normal ECG Compared to ECG 09/10/2018 18:58:06 No significant changes Electronically Signed On 11-03-18 10:53:52 APPLICATION SUPPORT CONSULTANT by Codey Arteaga
[2018-11-03 14:37] VITALS: BP 136/68; TEMP 98.3
[2018-11-03] MEDS ORDERED: INFLUENZA VACCINE (for 3y+) 0.5 ML DOSE IMVAC ONE (15:00)
[2018-11-05 15:20] LABS: HIV AG/AB 4TH GEN Non-reactive (Non-reactive)
[2018-11-06 04:24] LABS: C.trachomatis RNA,TMA Not Detected (Not Detected)
[2018-11-07 04:05] LABS: HBsAG Nonreactive (Nonreactive); Hepatitis A IgM Antibody Nonreactive
== END 2018-11-03 15:15 | disposition home or self-care (01) ==
LOC: ER 10:39 → ERHOLD 13:13 → 2ND 14:18
PROVIDERS: ADMIT Family Medicine; ATTEND Family Medicine
DX: K80.20 Calculus of gallbladder without cholecystitis without obstruction (principal); K21.9 Gastro-esophageal reflux disease without esophagitis; K44.9 Diaphragmatic hernia without obstruction or gangrene; F10.10 Alcohol abuse, uncomplicated; N28.9 Disorder of kidney and ureter, unspecified; E86.0 Dehydration; N89.8 Other specified noninflammatory disorders of vagina; K76.0 Fatty (change of) liver, not elsewhere classified; F41.9 Anxiety disorder, unspecified; Z63.8 Other specified problems related to primary support group; E87.6 Hypokalemia; E83.42 Hypomagnesemia; Z23 Encounter for immunization
CPT/HCPCS: 36415; 51702; 71046; 74177; 76705; 80048; 80053; 80074; 80076; 80307; 80320; 80329; 81003; 81015; 83690; 83735; 84132; 84145; 84439; 84443; 84703; 85025; 85610; 85730; 87040; 87070; 87081; 87086; 87088; 87389; 87490; 87590; 87804; 93005; 96365; 96366; 96375; 99285; G0008; G0378; J0744; J1650; J2405; J3411; J3475; J7030; Q2035; Q9967

== ENCOUNTER 2018-12-13 14:09 | Emergency (ER) | payer SELFPAY ==
[2018-12-13 15:32] LABS: Absolute Lymphocytes (CBC) 0.9 K/uL (0.7-4.9); Absolute Monocytes 0.7 K/uL (0.1-1.3); Absolute Neutrophil 4.6 K/uL (1.8-8.0); Basophils % 0.9 % (0-1.3); Eosinophils % 1.1 % (0-4.4); Hematocrit 40.7 % (36.0-45.0); Lymphocytes % 14.3 % (15.3-44.8); MPV 8.1 fL (7.6-11.3); Monocytes % 10.5 % (3.3-12.3); RBC Red Blood Cell Count 4.16 M/uL (3.86-4.86)
[2018-12-13 15:38] LABS: Urine Blood 3+ (NEG); Urine Glucose NEGATIVE (NEG); Urine Protein 2+ (NEG)
[2018-12-13 15:46] LABS: Albumin 3.8 g/dL (3.4-5.0); Bilirubin Direct 0.2 mg/dL (0-0.2); Bilirubin Total 0.6 mg/dL (0.2-1.0); Potassium 3.3 mmol/L (3.5-5.1); Protein, Total 7.7 g/dL (6.4-8.2)
[2018-12-13] MEDS ORDERED: KETOROLAC 30 MG/ML INJ ONE (15:55)
[2018-12-13] MEDS ORDERED: NA CHLORIDE 0.9% 1,000 ML ONE (15:55)
[2018-12-13] MEDS ORDERED: ONDANSETRON 4 MG/2 ML VIAL ONE (15:55)
--- NOTE | 2018-12-13 16:25 | RAD REPORT ---
EXAM DESCRIPTION: US - Abdomen Exam Limited - 12/13/2018 4:14 pm CLINICAL HISTORY: Abdominal pain. COMPARISON: October 2018 FINDINGS: Gallstones are again demonstrated. The gallbladder is distended. The gallbladder wall is n ot thickened. Common bile duct was not well seen but appears to be within normal limits caliber IMPRESSION: Cholelithiasis with gallbladder distention
--- NOTE | 2018-12-13 16:37 | ER ---
Nurse's Notes [facility] Name: Abby Hughes Age: 43 yrs Sex: Female : 1975 Arrival Date: 12/13/2018 Time: 14:11 Bed 30 Private MD: Diagnosis: Cholelithiasis Presentation: 12/13 15:00 Presenting complaint: Patient states: katie been having nausea and epigastric pain mg2 radiating to my back for 2 nights now. i also have cough and sore throat for 4 days now. Transition of care: patient was not received from another setting of care. Onset of symptoms was December 11, 2018. Risk Assessment: Do you want to hurt yourself or someone else? Patient reports no desire to harm self or others. Initial Sepsis Screen: Does the patient meet any 2 criteria? No. Patient's initial sepsis screen is negative. Does the patient have a suspected source of infection? No. Patient's initial sepsis screen is negative. Care prior to arrival: None. 15:00 Method Of Arrival: Ambulatory mg2 15:00 Acuity: LIZZIE 3 mg2 Triage Assessment: 15:28 General: Appears in no apparent distress. comfortable, Behavior is calm, cooperative. mg2 Pain: Complains of pain in abdomen Pain radiates to back Pain currently is 8 out of 10 on a pain scale. 15:31 EENT: No deficits noted. Neuro: No deficits noted. Cardiovascular: Capillary refill < 3 mg2 seconds Patient's skin is warm and dry. Respiratory: Airway is patent Respiratory effort is even, unlabored, Respiratory pattern is regular, symmetrical. GI: Abdomen is flat, non-distended, Reports epigastric pain, nausea. : Urine is blood tinged. Derm: Skin is intact, is healthy with good turgor, Skin is pink, warm \T\ dry. normal. Musculoskeletal: No signs and/or symptoms reported regarding the musculoskeletal system. MANAGER BAR: 15:03 LMP 12/11/2018 mg2 Historical: - Allergies: 15:04 No Known Allergies; mg2 - Home Meds: 15:04 None [Active]; mg2 - PMHx: 15:04 Hypertension; Migraines; GERD; Hernia; mg2 - PSHx: 15:05 ; Tubal ligation; mg2 - Immunization history:: Flu vaccine is up to date. - Social history:: Smoking status: Patient/guardian denies using tobacco, Patient/guardian denies using alcohol, street drugs, IV drugs, stoppped drinking for a month now. - Ebola Screening: : No symptoms or risks identified at this time. Screenin:33 Abuse screen: Denies threats or abuse. Denies injuries from another. Nutritional mg2 screening: No deficits noted. Tuberculosis screening: No symptoms or risk factors identified. Fall Risk IV access (20 points). Assessment: 15:33 Reassessment: pls see triage assessment. mg2 17:32 Reassessment: Patient states feeling better. mg2 Vital Signs: 15:03 BP 163 / 108; Pulse 61; Resp 18; Temp 98.5; Pulse Ox 100% on R/A; Weight 65.32 kg; mg2 Height 5 ft. 2 in. (157.48 cm); Pain 8/10; 17:32 BP 145 / 78; Pulse 70; Resp 18; Pulse Ox 100% on R/A; Pain 0/10; mg2 15:03 Body Mass Index 26.34 (65.32 kg, 157.48 cm) mg2 ED Course: 14:11 Patient arrived in ED. as 14:55 Vaishnavi Marino FNP-C is PHCP. kb 14:55 Edvin Ashford MD is Attending Physician. kb 15:00 Sarwat Paiz RN is Primary Nurse. mg2 15:03 Triage completed. mg2 15:06 Arm band placed on. mg2 15:33 Patient has correct armband on for positive identification. mg2 15:33 No provider procedures requiring assistance completed. Inserted saline lock: 22 gauge mg2 in right forearm, using aseptic technique. Blood collected. 16:14 US Abdomen Limited In Process Unspecified. EDMS 16:14 Ultrasound completed. Patient tolerated well. Patient moved back from ultrasound. cy 17:31 IV discontinued, intact, bleeding controlled, No redness/swelling at site. Pressure mg2 dressing applied. Administered Medications: 15:47 Drug: TORadol 30 mg Route: IVP; Site: right forearm; mg2 17:32 Follow up: Response: No adverse reaction mg2 15:48 Drug: NS 0.9% 1000 ml Route: IV; Rate: 1000 ml; Site: right forearm; mg2 17:33 Follow up: Response: No adverse reaction; IV Status: Completed infusion mg2 15:48 Drug: Zofran 4 mg Route: IVP; Site: right forearm; mg2 17:33 Follow up: Response: No adverse reaction; Marked relief of symptoms mg2 16:59 Drug: Potassium Chloride 20 mEq Route: PO; mg2 17:32 Follow up: Response: No adverse reaction mg2 Outcome: 16:36 Discharge ordered by MD. hanna 17:31 Discharged to home ambulatory. mg2 17:31 Condition: stable 17:31 Discharge instructions given to patient, Instructed on discharge instructions, follow up and referral plans. medication usage, Demonstrated understanding of instructions, follow-up care, medications, Prescriptions given X 3. 17:33 Patient left the ED. mg2 Signatures: Dispatcher [employer] EDMS Vaishnavi Marino, LAND CONSERVATION SPECIALIST-C LAND CONSERVATION SPECIALIST-Digna Weber Chheannith cy Gardose, Michele, TANYA RN mg2 Corrections: (The following items were deleted from the chart) 15:53 15:03 Pulse 61bpm; Resp 18bpm; Pulse Ox 100% RA; Temp 98.5F; 65.32 kg; Height 5 ft. 2 mg2 in.; BMI: 26.3; Pain 8/10; mg2
--- NOTE | 2018-12-13 16:37 | EDPHYS ---
Physician Documentation [facility] Name: Abby Hughes Age: 43 yrs Sex: Female : 1975 Arrival Date: 12/13/2018 Time: 14:11 Bed 30 Private MD: ED Physician Edvin Ashford HPI: 12/13 16:29 This 43 yrs old Female presents to ER via Ambulatory with complaints of kb Gallstones. 16:29 The patient presents with abdominal pain in the right upper quadrant. Onset: The kb symptoms/episode began/occurred yesterday. The symptoms do not radiate. Associated signs and symptoms: Pertinent positives: fever, nausea. The symptoms are described as constant, sharp. Modifying factors: The symptoms are alleviated by nothing, the symptoms are aggravated by nothing. Severity of pain: At its worst the pain was moderate in the emergency department the pain is unchanged. The patient has experienced similar episodes in the past, a few times. The patient has not recently seen a physician. Pt reports history of gallstones and started having RUQ pain again yesterday. Also reports sore throat, cough, congestion and fever. . 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 - Social history:: Smoking status: Patient/guardian denies using tobacco, Patient/guardian denies using alcohol, street drugs, IV drugs, stoppped drinking for a month now. - Ebola Screening: : No symptoms or risks identified at this time. ROS: 16:26 Cardiovascular: Negative for chest pain, palpitations, and edema, Back: Negative for kb injury and pain, : Negative for injury, bleeding, discharge, and swelling, MS/Extremity: Negative for injury and deformity, Skin: Negative for injury, rash, and discoloration, Neuro: Negative for headache, weakness, numbness, tingling, and seizure. 16:26 Abdomen/GI: Positive for abdominal pain, nausea, Negative for vomiting, diarrhea. 16:26 Constitutional: Positive for fever, malaise. kb 16:26 ENT: Positive for sore throat. 16:26 Respiratory: Positive for cough, Negative for dyspnea on exertion, hemoptysis, orthopnea, pleurisy, shortness of breath, sputum production, wheezing. Exam: 16:27 Constitutional: This is a well developed, well nourished patient who is awake, alert, kb and in no acute distress. Head/Face: Normocephalic, atraumatic. ENT: Nares patent. No nasal discharge, no septal abnormalities noted. Tympanic membranes are normal and external auditory canals are clear. Oropharynx with no redness, swelling, or masses, exudates, or evidence of obstruction, uvula midline. Mucous membranes moist. Neck: Trachea midline, no thyromegaly or masses palpated, and no cervical lymphadenopathy. Supple, full range of motion without nuchal rigidity, or vertebral point tenderness. No Meningismus. Chest/axilla: Normal chest wall appearance and motion. Nontender with no deformity. No lesions are appreciated. Cardiovascular: Regular rate and rhythm with a normal S1 and S2. No gallops, murmurs, or rubs. Normal PMI, no JVD. No pulse deficits. Respiratory: Lungs have equal breath sounds bilaterally, clear to auscultation and percussion. No rales, rhonchi or wheezes noted. No increased work of breathing, no retractions or nasal flaring. Skin: Warm, dry with normal turgor. Normal color with no rashes, no lesions, and no evidence of cellulitis. MS/ Extremity: Pulses equal, no cyanosis. Neurovascular intact. Full, normal range of motion. Neuro: Awake and alert, GCS 15, oriented to person, place, time, and situation. Cranial nerves II-XII grossly intact. Motor strength 5/5 in all extremities. Sensory grossly intact. Cerebellar exam normal. Normal gait. 16:27 Abdomen/GI: Inspection: abdomen appears normal, Bowel sounds: normal, Palpation: soft, in all quadrants, moderate abdominal tenderness, in the right upper quadrant. Vital Signs: 15:03 BP 163 / 108; Pulse 61; Resp 18; Temp 98.5; Pulse Ox 100% on R/A; Weight 65.32 kg; mg2 Height 5 ft. 2 in. (157.48 cm); Pain 8/10; 17:32 BP 145 / 78; Pulse 70; Resp 18; Pulse Ox 100% on R/A; Pain 0/10; mg2 15:03 Body Mass Index 26.34 (65.32 kg, 157.48 cm) mg2 MDM: 14:55 Patient medically screened. [facility] 16:27 Data reviewed: vital signs, nurses notes. Data interpreted: Pulse oximetry: on room air kb is 100 %. Interpretation: normal. Counseling: I had a detailed discussion with the patient and/or guardian regarding: the historical points, exam findings, and any diagnostic results supporting the discharge/admit diagnosis, lab results, radiology results, the need for outpatient follow up, a general surgeon, to return to the emergency department if symptoms worsen or persist or if there are any questions or concerns that arise at home. 12/13 14:57 Order name: Basic Metabolic Panel; Complete Time: 15:48 lt1 12/13 14:57 Order name: CBC with Diff; Complete Time: 15:38 lt1 12/13 14:57 Order name: Creatinine for Radiology; Complete Time: 15:48 lt1 12/13 14:57 Order name: Hepatic Function; Complete Time: 15:48 lt1 12/13 14:57 Order name: Lipase; Complete Time: 15:48 lt1 12/13 15:17 Order name: Urine Dipstick--Ancillary (enter results); Complete Time: 15:39 eb 12/13 15:17 Order name: Urine --Ancillary (enter results); Complete Time: 15:39 eb 12/13 15:20 Order name: Flu; Complete Time: 16:18 kb 12/13 15:20 Order name: Strep; Complete Time: 16:18 kb 12/13 15:20 Order name: Flu mg2 12/13 15:20 Order name: Strep mg2 12/13 15:55 Order name: US Abdomen Limited; Complete Time: 16:37 kb 12/13 16:14 Order name: Throat Culture EDAR 12/13 14:57 Order name: IV Saline Lock; Complete Time: 15:20 lt1 12/13 14:57 Order name: Labs collected and sent; Complete Time: 15:20 lt1 Administered Medications: 15:47 Drug: TORadol 30 mg Route: IVP; Site: right forearm; mg2 17:32 Follow up: Response: No adverse reaction mg2 15:48 Drug: NS 0.9% 1000 ml Route: IV; Rate: 1000 ml; Site: right forearm; mg2 17:33 Follow up: Response: No adverse reaction; IV Status: Completed infusion mg2 15:48 Drug: Zofran 4 mg Route: IVP; Site: right forearm; mg2 17:33 Follow up: Response: No adverse reaction; Marked relief of symptoms mg2 16:59 Drug: Potassium Chloride 20 mEq Route: PO; mg2 17:32 Follow up: Response: No adverse reaction mg2 Disposition: 12/13/18 16:36 Discharged to Home. Impression: Cholelithiasis. - Condition is Stable. - Discharge Instructions: Cholelithiasis, [id number]. - Prescriptions for Bentyl 20 mg Oral Tablet - take 1 tablet by ORAL route every 6 hours As needed; 20 tablet. Zofran 4 mg Oral Tablet - take 1 tablet by ORAL route every 6 hours As needed; 20 tablet. Diclofenac Sodium 75 mg Oral Tablet, Delayed Release (E.C.) - take 1 tablet by ORAL route 2 times per day As needed; 30 tablet. - Medication Reconciliation Form, Thank You Letter, Antibiotic Education, Prescription Opioid Use form. - Follow up: Emergency Department; When: As needed; Reason: Worsening of condition. Follow up: Private Physician; When: 2 - 3 days; Reason: Recheck today's complaints, Continuance of care, Re-evaluation by your physician. Addendum: 12/16/2018 07:16 Co-signature as Attending Physician, Edvin Ashford MD I agree with the assessment and c [place] plan of care. Signatures: Dispatcher [employer] Vaishnavi Coffey, PRINT LINE INSPECTOR-C PRINT LINE INSPECTOR-Edvin Castillo MD MD cha Gardose, Michele, RN RN mg2 Raya, Loan lt1 Corrections: (The following items were deleted from the chart) 12/13 16:27 16:26 Constitutional: Negative for fever, chills, and weight loss, Cardiovascular: kb Negative for chest pain, palpitations, and edema, Respiratory: Negative for shortness of breath, cough, wheezing, and pleuritic chest pain, Back: Negative for injury and pain, : Negative for injury, bleeding, discharge, and swelling, MS/Extremity: Negative for injury and deformity, Skin: Negative for injury, rash, and discoloration, Neuro: Negative for headache, weakness, numbness, tingling, and seizure, kb 16:27 16:26 Abdomen/GI: Positive for abdominal pain, Negative for nausea, vomiting, and kb diarrhea, kb 17:33 16:36 12/13/2018 16:36 Discharged to Home. Impression: Cholelithiasis. Condition is mg2 Stable. Forms are Medication Reconciliation Form, Thank You Letter, Antibiotic Education, Prescription Opioid Use. Follow up: Emergency Department; When: As needed; Reason: Worsening of condition. Follow up: Private Physician; When: 2 - 3 days; Reason: Recheck today's complaints, Continuance of care, Re-evaluation by your physician. kb
[2018-12-13] MEDS ORDERED: POTASSIUM CL SA 10 MEQ TAB PO ONE (16:39)
[2018-12-13 17:47] VITALS: TEMP 98.5; O2SAT 100
[2018-12-13 17:49] VITALS: BP 145/78
== END 2018-12-13 17:33 | disposition home or self-care (01) ==
LOC: ER 14:09
DX: K80.20 Calculus of gallbladder without cholecystitis without obstruction (principal); I10 Essential (primary) hypertension; K21.9 Gastro-esophageal reflux disease without esophagitis
CPT/HCPCS: 36415; 76705; 80048; 80076; 81003; 81025; 83690; 85025; 87070; 87081; 87804; 96361; 96374; 96375; 99284; J2405; J7030

== ENCOUNTER 2019-01-06 19:48 | Inpatient (IN) | payer SELFPAY ==
[2019-01-06] MEDS ORDERED: THIAMINE 200 MG/2 ML INJ ONE (20:32)
[2019-01-06] MEDS ORDERED: NA CHLORIDE 0.9% 1,000 ML ONE (20:32)
[2019-01-06] MEDS ORDERED: ONDANSETRON 4 MG/2 ML VIAL ONE (20:32)
[2019-01-06] MEDS ORDERED: LORazepam 2 MG/ML VIAL ONE (20:32)
[2019-01-06] MEDS ORDERED: MULTIVITAMINS 10 ML VIAL (INJ) IV ONE (20:33)
[2019-01-06] MEDS ORDERED: FOLIC ACID 5 MG/ML VIAL ONE (20:34)
[2019-01-06 20:40] LABS: Absolute Monocytes 0.7 K/uL (0.1-1.3); Absolute Neutrophil 9.5 K/uL (1.8-8.0); Basophils % 0.7 % (0-1.3); Lymphocytes % 9.1 % (15.3-44.8); MPV 8.4 fL (7.6-11.3); Monocytes % 6.4 % (3.3-12.3); RBC Red Blood Cell Count 4.62 M/uL (3.86-4.86)
[2019-01-06 20:48] LABS: Barbiturates NEGATIVE (NEGATIVE); Benzodiazepines NEGATIVE (NEGATIVE); Cocaine NEGATIVE (NEGATIVE); METHAMPHETAM NEGATIVE (NEGATIVE); Methadone NEGATIVE (NEGATIVE); Opiates NEGATIVE (NEGATIVE); Phencyclidine NEGATIVE (NEGATIVE); Protime INR 0.99; THC Cannibis NEGATIVE (NEGATIVE)
[2019-01-06 21:08] LABS: Urine Blood 1+ (NEG); Urine Glucose NEGATIVE (NEG); Urine Protein NEGATIVE (NEG); Urine Specific Gravity 1.015 (1.005-1.030)
[2019-01-06 21:19] LABS: ALT/SGPT 56 U/L (12-78); AST/SGOT 119 U/L (15-37); Albumin 4.3 g/dL (3.4-5.0); Alkaline Phosphatase 87 U/L (45-117); BUN Blood Urea Nitrogen 11 mg/dL (7-18); Bicarbonate 20 mmol/L (21-32); Bilirubin Direct 0.2 mg/dL (0-0.2); Bilirubin Total 0.7 mg/dL (0.2-1.0); Glucose Level 115 mg/dL (74-106); Potassium 3.4 mmol/L (3.5-5.1); Protein, Total 8.6 g/dL (6.4-8.2); Sodium Level 137 mmol/L (136-145)
--- NOTE | 2019-01-06 23:36 | EDPHYS ---
Physician Documentation [facility] Name: Abby Hughes Age: 43 yrs Sex: Female : 1975 Arrival Date: 01/06/2019 Time: 19:48 Bed 7 Private MD: ED Physician Ben Johnson HPI: 01/06 20:15 This 43 yrs old Female presents to ER via Ambulatory with complaints of pkl Alcohol Withdrawal. 20:15 The patient presents to the emergency department with nausea, vomiting, 4 times since pkl the onset of symptoms. Onset: The symptoms/episode began/occurred today, 7 hour(s) ago. Possible causes: alcohol withdrawals. Associated signs and symptoms: Pertinent positives: anxiety and tremors. The patient has experienced similar episodes in the past, several times. H/O alcohol abuse. Last drinking alcohol yesterday. 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 - Social history:: Smoking status: Patient/guardian denies using tobacco. - Ebola Screening: : No symptoms or risks identified at this time. ROS: 20:15 Eyes: Negative for injury, pain, redness, and discharge, ENT: Negative for injury, pkl pain, and discharge, Neck: Negative for injury, pain, and swelling. 20:15 Cardiovascular: Negative for chest pain. 20:15 Respiratory: Negative for cough, shortness of breath. 20:15 Abdomen/GI: Positive for nausea and vomiting. 20:15 Back: Negative for acute changes. 20:15 : Negative for urinary symptoms. 20:15 MS/extremity: Negative for acute changes. 20:15 Skin: Negative for rash. 20:15 Neuro: Positive for tremor, Negative for altered mental status, headache. 20:15 Psych: Positive for anxiety. Exam: 20:15 Head/Face: Normocephalic, atraumatic. Eyes: Pupils equal round and reactive to light, pkl extra-ocular motions intact. Lids and lashes normal. Conjunctiva and sclera are non-icteric and not injected. Cornea within normal limits. Periorbital areas with no swelling, redness, or edema. ENT: Nares patent. No nasal discharge, no septal abnormalities noted. Tympanic membranes are normal and external auditory canals are clear. Oropharynx with no redness, swelling, or masses, exudates, or evidence of obstruction, uvula midline. Mucous membranes moist. Neck: Trachea midline, no thyromegaly or masses palpated, and no cervical lymphadenopathy. Supple, full range of motion without nuchal rigidity, or vertebral point tenderness. No Meningismus. Chest/axilla: Normal chest wall appearance and motion. Nontender with no deformity. No lesions are appreciated. Cardiovascular: Regular rate and rhythm with a normal S1 and S2. No gallops, murmurs, or rubs. Normal PMI, no JVD. No pulse deficits. Respiratory: Lungs have equal breath sounds bilaterally, clear to auscultation and percussion. No rales, rhonchi or wheezes noted. No increased work of breathing, no retractions or nasal flaring. 20:15 Abdomen/GI: Bowel sounds: normal, Palpation: abdomen is soft and non-tender, in all quadrants. 20:15 Back: Exam negative for acute changes. 20:15 : Exam negative for acute changes. 20:15 Musculoskeletal/extremity: Exam is negative for acute changes. 20:15 Skin: Exam negative for rash. 20:15 Neuro: Orientation: is normal, Mentation: is normal, Cranial nerves: grossly normal, Motor: is normal, Tremors noted. 20:15 Psych: Behavior/mood is anxious, Patient has no thoughts/intents to harm self or others. Vital Signs: 19:58 BP 190 / 121; Pulse 147; Resp 20; Temp 98.9(O); Pulse Ox 99% on R/A; Weight 65.77 kg; lp1 Height 5 ft. 2 in. (157.48 cm); Pain 0/10; 20:58 BP 147 / 90; Pulse 111; Resp 19; Pulse Ox 97% on R/A; ea 21:40 BP 155 / 78; Pulse 111; Resp 17; Pulse Ox 98% on R/A; ea 22:46 BP 136 / 97; Pulse 110; Resp 19; Pulse Ox 98% ; ea 23:47 BP 136 / 98; Pulse 102; Resp 18; Pulse Ox 98% on R/A; ea 19:58 Body Mass Index 26.52 (65.77 kg, 157.48 cm) lp1 MDM: 19:55 Patient medically screened. pkl 23:33 Data reviewed: vital signs, nurses notes, lab test result(s), EKG. pkl 01/06 20:15 Order name: Acetaminophen; Complete Time: 22:57 ea 01/06 20:15 Order name: Basic Metabolic Panel; Complete Time: 22:57 ea 01/06 20:15 Order name: CBC with Diff; Complete Time: 22:57 ea 01/06 20:15 Order name: ETOH Level; Complete Time: 22:57 ea 01/06 20:15 Order name: Hepatic Function; Complete Time: :57 ea 01/06 20:15 Order name: PT-INR; Complete Time: :57 ea 01/06 20:15 Order name: Ptt, Activated; Complete Time: 22:57 ea 01/06 20:15 Order name: Salicylate; Complete Time: 22:57 ea 01/06 20:15 Order name: Urine Drug Screen; Complete Time: 22:57 ea 01/06 20:32 Order name: Urine Dipstick--Ancillary (enter results); Complete Time: 22:57 ms 01/06 20:32 Order name: Urine --Ancillary (enter results); Complete Time: 22:57 ms 01/07 05:54 Order name: CBC with Automated Diff; Complete Time: 19:03 EDMS 01/07 05:57 Order name: Basic Metabolic Panel; Complete Time: 19:03 EDMS 01/07 05:57 Order name: Magnesium; Complete Time: 19:03 EDMS 01/06 20:15 Order name: EKG; Complete Time: 20:15 ea 01/06 20:15 Order name: EKG - Nurse/Tech; Complete Time: 20:52 ea 01/06 20:15 Order name: IV Saline Lock; Complete Time: 20:16 ea 01/06 20:15 Order name: Labs collected and sent; Complete Time: 20:52 ea 01/06 20:15 Order name: Urine Dipstick-Ancillary (obtain specimen); Complete Time: 20:18 ea Administered Medications: 20:20 Drug: Ativan 1 mg Route: IVP; Site: right antecubital; ea 22:19 Follow up: Response: No adverse reaction ak1 20:22 Drug: Banana Bag - (NS 0.9% 1000 ml, foLIC Acid 1 mg, Thiamine 100 mg, Multivitamin 1 ea amp) Route: IV; Rate: calculated rate; Site: right antecubital; 01/07 01:00 Follow up: Response: No adverse reaction; IV Status: Completed infusion; IV Intake: ea 1000ml 01/06 20:23 Drug: Zofran 4 mg Route: IVP; Site: right antecubital; ea 22:19 Follow up: Response: No adverse reaction ak1 Disposition: 01/06/19 23:35 Hospitalization ordered by Jorge Corbin for Observation. Preliminary diagnosis is Alcohol withdrawal. - Bed requested for [facility] ER HOLD. - Status is Observation. ph - Condition is Stable. - Problem is new. - Symptoms are unchanged. UTI on Admission? No Signatures: Dispatcher [employer] EDMS Aurora Hill RN Ben Jeffrey MD MD pkl Emily Mckeon RN RN lp1 Katy Holm RN Radha Soto ph, RN Sonya Burnett ea RN ak1 Corrections: (The following items were deleted from the chart) 01/07 00:40 01/06 23:35 Hospitalization Ordered by Jorge Corbin MD for Observation. Preliminary mw diagnosis is Alcohol withdrawal. Bed requested for Telemetry/MedSurg (observation). Status is Observation. Condition is Stable. Problem is new. Symptoms are unchanged. UTI on Admission? No. pkl 01/07 00:42 00:40 01/06/2019 23:35 Hospitalization Ordered by Jorge Corbin MD for Observation. mw Preliminary diagnosis is Alcohol withdrawal. Bed requested for Telemetry/MedSurg (observation). Status is Observation. Condition is Stable. Problem is new. Symptoms are unchanged. UTI on Admission? No. mw 14:12 00:42 01/06/2019 23:35 Hospitalization Ordered by Jorge Corbin MD for Observation. ph Preliminary diagnosis is Alcohol withdrawal. Bed requested for [facility] ER HOLD. Status is Observation. Condition is Stable. Problem is new. Symptoms are unchanged. UTI on Admission? No. mw
--- NOTE | 2019-01-06 23:36 | ER ---
Nurse's Notes [facility] Name: Abby Hughes Age: 43 yrs Sex: Female : 1975 Arrival Date: 01/06/2019 Time: 19:48 Bed 7 Private MD: Diagnosis: Alcohol withdrawal Presentation: 01/06 19:56 Presenting complaint: Patient states: "I feel like I'm going through withdrawals"; lp1 Patient states last drinking alcohol yesterday; began feeling anxious, vomited x4 today; States drinking "a bottle of Dima's daily". Transition of care: patient was not received from another setting of care. Onset of symptoms was January 06, 2019. Risk Assessment: Do you want to hurt yourself or someone else? Patient reports no desire to harm self or others. Initial Sepsis Screen: Does the patient meet any 2 criteria? HR > 90 bpm. Does the patient have a suspected source of infection? No. Patient's initial sepsis screen is negative. Note Patient noted to be trembling during triage, restless. Care prior to arrival: None. 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 - Social history:: Smoking status: Patient/guardian denies using tobacco. - Ebola Screening: : No symptoms or risks identified at this time. Screenin:59 Abuse screen: Denies threats or abuse. Denies injuries from another. Nutritional lp1 screening: No deficits noted. Tuberculosis screening: No symptoms or risk factors identified. Fall Risk None identified. Assessment: 20:10 General: Appears uncomfortable, Behavior is anxious, restless. Pain: Denies pain. ea Neuro: Level of Consciousness is awake, alert, obeys commands, Oriented to person, place, time, situation. Cardiovascular: Patient's skin is warm and dry. Respiratory: Airway is patent Respiratory effort is even, unlabored, Respiratory pattern is regular, symmetrical, Breath sounds are clear bilaterally. GI: Parent/caregiver reports the patient having vomiting. Derm: Skin is clammy, Skin is pale, Skin temperature is warm. 21:39 Reassessment: Patient and/or family updated on plan of care and expected duration. Pain ea level reassessed. Patient is alert, oriented x 3, equal unlabored respirations, skin warm/dry/pink. 22:46 Reassessment: Patient and/or family updated on plan of care and expected duration. Pain ea level reassessed. Patient is alert, oriented x 3, equal unlabored respirations, skin warm/dry/pink. 23:48 Reassessment: Patient and/or family updated on plan of care and expected duration. Pain ea level reassessed. Patient is alert, oriented x 3, equal unlabored respirations, skin warm/dry/pink. 01/07 06:57 Reassessment: report given to Chester MARTÍNEZ for ICU hold. ak1 Vital Signs: 01/06 19:58 BP 190 / 121; Pulse 147; Resp 20; Temp 98.9(O); Pulse Ox 99% on R/A; Weight 65.77 kg; lp1 Height 5 ft. 2 in. (157.48 cm); Pain 0/10; 20:58 BP 147 / 90; Pulse 111; Resp 19; Pulse Ox 97% on R/A; ea 21:40 BP 155 / 78; Pulse 111; Resp 17; Pulse Ox 98% on R/A; ea 22:46 BP 136 / 97; Pulse 110; Resp 19; Pulse Ox 98% ; ea 23:47 BP 136 / 98; Pulse 102; Resp 18; Pulse Ox 98% on R/A; ea 19:58 Body Mass Index 26.52 (65.77 kg, 157.48 cm) lp1 ED Course: 19:48 Patient arrived in ED. ds1 19:55 Ben Johnson MD is Attending Physician. pkl 19:58 Triage completed. lp1 19:59 Arm band placed on left wrist. lp1 20:10 Patient has correct armband on for positive identification. Placed in gown. Bed in low ea position. Call light in reach. 20:14 Radha Ríos RN is Primary Nurse. ea 20:15 Inserted saline lock: 18 gauge in right antecubital area, using aseptic technique. ea Blood collected. 23:34 Jorge Corbin MD is Hospitalizing Provider. pkl 23:48 Patient admitted, IV remains in place. ea 01/07 00:38 No provider procedures requiring assistance completed. ea Administered Medications: 01/06 20:20 Drug: Ativan 1 mg Route: IVP; Site: right antecubital; ea 22:19 Follow up: Response: No adverse reaction ak1 20:22 Drug: Banana Bag - (NS 0.9% 1000 ml, foLIC Acid 1 mg, Thiamine 100 mg, Multivitamin 1 ea amp) Route: IV; Rate: calculated rate; Site: right antecubital; 01/07 01:00 Follow up: Response: No adverse reaction; IV Status: Completed infusion; IV Intake: ea 1000ml 01/06 20:23 Drug: Zofran 4 mg Route: IVP; Site: right antecubital; ea 22:19 Follow up: Response: No adverse reaction ak1 Intake: 01/07 01:00 IV: 1000ml; Total: 1000ml. ea Outcome: 01/06 23:35 Decision to Hospitalize by Provider. pkl 23:48 Instructed on the need for admit. ea 01/07 03:38 Admitted to ER Hold. Please see [facility] for further documentation. ea 03:39 Condition: stable ea 14:12 Patient left the ED. ph Signatures: Ben Johnson MD MD pkl Lauren Waldrop ds1 Emily Mckeon RN RN lp1 Sonya Johnson RN RN ak1 Katy Holm RN RN ph Antunez, Elena, RN RN ea
--- NOTE | 2019-01-07 01:04 | P.HP ---
Certification for Inpatient Patient admitted to: Inpatient With expected LOS: >2 Midnights Practitioner: I am a practitioner with admitting privileges, knowledge of patient current condition, hospital course, and medical plan of care. Services: Services provided to patient in accordance with Admission requirements found in Title 42 Section 412.3 of the Code of Federal Regulations Patient History Date of Service: 01/07/19 Reason for admission: Alcohol withdrawal History of Present Illness: Ms Hughes is a 43 years old woman with history of HTN, Cholelithiasis, heavy alcohol drinker, half a gallon of vodka daily, who came to ED complaining of nausea and vomiting, generalized tremors and anxiety. The patient drank alcohol yesterday for the last time. She states that did not drink today because she wants to quit, she is looking for help. No fever, cough or SOB reported. At arrival she was hypertensive 190/121, HR 140, Temp 98.9. Lab work shows 11.4 WBC , elevated AST. Alcohol level is 7. Allergies No Known Allergies Allergy (Verified 09/10/18 22:50) Home medications list reviewed: Yes Home Medications: ALPRAZolam [Xanax] 0.5 mg PO BID PRN #10 tab 11/03/18 Pantoprazole [Protonix Tab] 40 mg PO DAILY #30 tab 11/03/18 - Past Medical/Surgical History Diabetic: No -: Anxiety -: Alcohol abuse -: Increased social/family dysfunction -: c-sections 2x -: tubal ligation Psychosocial/ Personal History: Patient is . She has 2 children. She does not work. - Family History Mother -: Heart disease, Hypertension, Diabetes Father -: Hypertension, Other (see notes) Notes: high cholesterol. depression parents -: Hypertension - Social History Smoking Status: Never smoker Alcohol use: Yes CD- Drugs: No Caffeine use: Yes Place of Residence: Home Review of Systems 10-point ROS is otherwise unremarkable Physical Examination - Physical Exam General: Alert, Moderate distress HEENT: Atraumatic, PERRLA, Mucous membr. moist/pink, EOMI, Sclerae nonicteric Neck: Supple, 2+ carotid pulse no bruit, No LAD, Without JVD or thyroid abnormality Respiratory: Clear to auscultation bilaterally, Normal air movement Cardiovascular: Regular rate/rhythm, Normal S1 S2 Gastrointestinal: Normal bowel sounds, No tenderness Musculoskeletal: No tenderness Integumentary: No rashes Neurological: Normal speech, Normal strength at 5/5 x4 extr, Normal tone, Normal affect Lymphatics: No axilla or inguinal lymphadenopathy - Studies Laboratory Data (last 24 hrs) 01/06/19 20:20: PT 11.7, INR 0.99, APTT 27.0 01/06/19 20:20: WBC 11.4 H, Hgb 14.6, Hct 45.0, Plt Count 234 01/06/19 20:20: Sodium 137, Potassium 3.4 L, BUN 11, Creatinine 1.04, Glucose 115 H, Total Bilirubin 0.7, AST 119 H, ALT 56, Alkaline Phosphatase 87 Assessment and Plan - Problems (Diagnosis) (1) Alcohol withdrawal Current Visit: Yes Status: Acute Qualifiers: Complication of substance-induced condition: uncomplicated Qualified Code(s ): F10.230 - Alcohol dependence with withdrawal, uncomplicated (2) Alcohol abuse Current Visit: Yes Status: Acute (3) HTN (hypertension) Current Visit: Yes Status: Acute Qualifiers: Hypertension type: essential hypertension Qualified Code(s): I10 - Essential (primary) hypertension (4) Nausea & vomiting Onset Date: 11/04/18 Current Visit: No Status: Acute Qualifiers: Vomiting type: unspecified Vomiting Intractability: unspecified Qualified Code(s): R11.2 - Nausea with vomiting, unspecified - Plan The patient will be admitted to the hospital due to Alcohol withdrawal, she is alert and oriented, following commands. She is determined to quit drinking. Will place on withdrawal protocol. Continue close monitoring, watch for DT's. - Advance Directives Does patient have a Living Will: No Does patient have a Durable POA for Healthcare: No - Code Status/Comfort Care Code Status Assessed: Yes Code Status: Full Code
[2019-01-07] MEDS ORDERED: FLUMAZENIL 0.1 MG/ML (5 mL VIAL) IV PRN (01:12)
[2019-01-07] MEDS: LORazepam 2 MG/ML VIAL IV SCH ×2 (01:12→05:12)
[2019-01-07] MEDS ORDERED: ONDANSETRON 4 MG/2 ML VIAL IV PRN (01:12)
[2019-01-07] MEDS ORDERED: LORazepam 2 MG/ML VIAL IV PRN (01:12)
[2019-01-07] MEDS ORDERED: LORazepam 2 MG/ML VIAL ONE ×2 (01:40→05:13)
[2019-01-07 03:33] VITALS: BMI 26.5
[2019-01-07 05:32] LABS: Absolute Lymphocytes (CBC) 0.8 K/uL (0.7-4.9); Absolute Monocytes 0.5 K/uL (0.1-1.3); Absolute Neutrophil 3.2 K/uL (1.8-8.0); Basophils % 0.8 % (0-1.3); Eosinophils % 0.4 % (0-4.4); Hematocrit 36.7 % (36.0-45.0); Lymphocytes % 17.4 % (15.3-44.8); Monocytes % 10.2 % (3.3-12.3); RBC Red Blood Cell Count 3.76 M/uL (3.86-4.86)
[2019-01-07 05:47] LABS: Potassium 3.7 mmol/L (3.5-5.1)
--- NOTE | 2019-01-07 05:47 | EKG ---
Test Date: 2019-01-06 Test Time: 20:40:38 [employer] Consultant: RENEE MEASUREMENT RESULTS: Intervals: Rate: 112 PA: 128 QRSD: 76 QT: 340 QTc: 464 [place]: P: 64 PA: 128 QRS: 49 T: 61 INTERPRETIVE STATEMENTS: Sinus tachycardia Possible Left atrial enlargement Borderline ECG Compared to ECG 11/02/2018 11:16:06 No significant changes Electronically Signed On 01-07-19 05:47:05 CDT by Codey Arteaga
[2019-01-07] MEDS ORDERED: TRAMADOL HCL 50 MG TAB PO PRN (07:23)
[2019-01-07] MEDS ORDERED: FOLIC ACID 1 MG TABLET ONE (07:46)
[2019-01-07] MEDS ORDERED: FAMOTIDINE 20 MG/2 ML VIAL IV ONE (07:46)
[2019-01-07] MEDS ORDERED: NA CHLORIDE 0.9% 1,000 ML ONE (07:46)
[2019-01-07] MEDS ORDERED: chlordiazePOXIDE HCl 5 MG CAP PO ONE ×2 (07:46→12:31)
[2019-01-07] MEDS ORDERED: NA CHLORIDE 0.9% 1,000 ML IV SCH (08:00)
[2019-01-07] MEDS ORDERED: FOLIC ACID 1 MG, MULTIVITAMINS INJ 10 ML, THIAMINE HCL 100 MG in NA CHLORIDE 0.9% 1,000 ML IV SCH (09:00)
[2019-01-07] MEDS: chlordiazePOXIDE HCl 5 MG CAP PO SCH ×2 (09:00→13:00)
[2019-01-07] MEDS ORDERED: FAMOTIDINE 20 MG TAB PO SCH (09:00)
[2019-01-07] MEDS ORDERED: THIAMINE HCL 100 MG TABLET PO SCH (09:00)
[2019-01-07] MEDS ORDERED: FOLIC ACID 1 MG TABLET PO SCH (09:00)
--- NOTE | 2019-01-07 10:14 | P.PN ---
Subjective Date of Service: 01/07/19 Primary Care Provider: None Chief Complaint: Alcohol withdrawal Subjective: Improving Physical Examination - Vital Signs Temperature: 97.9 F Blood Pressure: 117/81 Pulse: 93 Respirations: 19 Pulse Ox (%): 99 - Physical Exam General: Alert, In no apparent distress, Oriented x3, Cooperative HEENT: Atraumatic Neck: Supple Respiratory: Clear to auscultation bilaterally, Normal air movement Cardiovascular: Normal pulses, Regular rate/rhythm Gastrointestinal: Normal bowel sounds, Soft and benign, Non-distended, No tenderness, No masses, No rebound, No guarding Musculoskeletal: No erythema, No tenderness, No warmth Integumentary: No tenderness/swelling, No erythema, No warmth, No cyanosis Neurological: Normal speech, Normal strength at 5/5 x4 extr, Normal tone, Normal affect, Other (Mild to minimal tremor) - Studies Laboratory Data (last 24 hrs) 01/06/19 20:20: PT 11.7, INR 0.99, APTT 27.0 01/06/19 20:20: WBC 11.4 H, Hgb 14.6, Hct 45.0, Plt Count 234 01/06/19 20:20: Sodium 137, Potassium 3.4 L, BUN 11, Creatinine 1.04, Glucose 115 H, Total Bilirubin 0.7, AST 119 H, ALT 56, Alkaline Phosphatase 87 Medications List Reviewed: Yes Assessment & Plan Discharge Plan: Home Plan to discharge in: 24 Hours Physician Review Additional Text: Impression: Alcohol abuse with mild alcohol withdrawal Hypertension Mild dehydration Plan: Alcohol abuse with mild alcohol withdrawal: Will continue with IV fluids. Will start Librium but hold if with increase sedation. Will monitor closely. Will provide IV Ativan if required. Anticipate discharge in the next 24 hr. Alcohol cessation addressed in detail. Patient understands the risks. She has desire to quit. Will continue to reassess. Will provide IV fluids, folic acid and thiamine. Will reassess this afternoon. Will provide DVT prophylaxis- Lovenox. If clinically stable the patient can be discharged home. Hypertension: Will need to obtain and restart home medication. Mild dehydration: Continue IV fluids. Time Spent Managing Pts Care (In Minutes): 55
[2019-01-07 12:27] VITALS: BP 121/84; TEMP 98.1
[2019-01-07 12:29] VITALS: O2SAT 97
[2019-01-07] MEDS ORDERED: TRAMADOL HCL 50 MG TAB ONE (12:31)
--- NOTE | 2019-01-07 13:11 | P.DS ---
Admission Date: 01/07/19 Discharge Date: 01/07/19 Primary Care Provider: None Disposition: ROUTINE DISCHARGE Discharge Condition: GOOD Reason for Admission: Alcohol withdrawal Consultations: none Procedures: Medical problem list: Alcohol abuse with mild alcohol withdrawal Hypertension Mild dehydration Brief History of Present Illness: 43-year-old female presented emergency room with nausea, vomiting and tremors. Patient with alcohol abuse. Patient was admitted for further evaluation and treatment. Alcohol withdrawal suspected. Hospital Course: Patient presented with nausea, vomiting and tremors. Patient had mild alcohol withdrawal. Patient has severe alcohol abuse. She admits drinking a gallon of vodka every other day. She is trying to quit. She understands the risk of continuing alcohol. Patient had mild elevation in alcohol level. Urine drug screen otherwise unremarkable. Patient was given IV fluids and benzodiazepine. Patient responded well to therapy. Patient desires to be discharge. Prior to discharge social staff worker will help arrange for follow up with a PCP to follow up on her care. Social work also provide information on alcoholics anonymous so that the patient may remain alcohol free. A limited supply of Librium 5 mg 1 pill twice daily as needed for agitation/tremors will be provided. Recommend to continue with thiamine 100 mg daily and folic acid 1 mg daily. Patient with history of hypertension. Blood pressure has remained stable. No need for medication at this time. Patient appears depressed. No suicidal ideation noted at this time. Recommend to follow up with a PCP to consider treatment. Counseling information will be provided. Vital Signs/Physical Exam: Temp Pulse Resp BP Pulse Ox 98.1 F 91 H 19 121/84 99 01/07/19 12:26 01/07/19 12:26 01/07/19 12:26 01/07/19 12:26 01/07/19 12:26 General: Alert, In no apparent distress, Oriented x3, Cooperative HEENT: Atraumatic Neck: Supple Respiratory: Clear to auscultation bilaterally, Normal air movement Cardiovascular: Normal pulses, Regular rate/rhythm Gastrointestinal: Normal bowel sounds, Soft and benign, Non-distended, No tenderness, No masses, No rebound, No guarding Musculoskeletal: No erythema, No tenderness, No warmth Integumentary: No tenderness/swelling, No erythema, No warmth, No cyanosis Neurological: Normal speech, Normal strength at 5/5 x4 extr, Normal tone Laboratory Data at Discharge: WBC 4.5 K/uL (4.3-10.9) D 01/07/19 05:10 Hgb 12.3 g/dL (12.0-15.0) 01/07/19 05:10 Hct 36.7 % (36.0-45.0) D 01/07/19 05:10 Plt Count 171 K/uL (152-406) D 01/07/19 05:10 PT 11.7 SECONDS (9.5-12.5) 01/06/19 20:20 INR 0.99 01/06/19 20:20 APTT 27.0 SECONDS (24.3-36.9) 01/06/19 20:20 Sodium 140 mmol/L (136-145) 01/07/19 05:10 Potassium 3.7 mmol/L (3.5-5.1) 01/07/19 05:10 BUN 13 mg/dL (7-18) 01/07/19 05:10 Creatinine 0.76 mg/dL (0.55-1.3) 01/07/19 05:10 Glucose 85 mg/dL (74-106) 01/07/19 05:10 Magnesium 2.0 mg/dL (1.8-2.4) 01/07/19 05:10 Total Bilirubin 0.7 mg/dL (0.2-1.0) 01/06/19 20:20 AST 119 U/L (15-37) H 01/06/19 20:20 ALT 56 U/L (12-78) 01/06/19 20:20 Alkaline Phosphatase 87 U/L (45-117) 01/06/19 20:20 Home Medications: Folic Acid 1 mg PO DAILY #30 tablet 01/07/19 Thiamine HCl [Vitamin B-1*] 100 mg PO DAILY #30 tablet 01/07/19 chlordiazePOXIDE HCl [Librium*] 5 mg PO BID PRN #10 cap 01/07/19 New Medications: chlordiazePOXIDE HCl [Librium*] 5 mg PO BID PRN #10 cap PRN Reason: Agitation Folic Acid 1 mg PO DAILY #30 tablet Thiamine HCl [Vitamin B-1*] 100 mg PO DAILY #30 tablet Patient Discharge Instructions: 1. Patient will need to establish care with a PCP to follow up this hospitalization. 2. Patient presented with nausea, vomiting and tremors. Patient had mild alcohol withdrawal. Patient has severe alcohol abuse. She admits drinking a gallon of vodka every other day. She is trying to quit. She understands the risk of continuing alcohol. Patient had mild elevation in alcohol level. Urine drug screen otherwise unremarkable. Patient was given IV fluids and benzodiazepine. Patient responded well to therapy. Patient desires to be discharge. Prior to discharge social staff worker will help arrange for follow up with a PCP to follow up on her care. Social work also provide information on alcoholics anonymous so that the patient may remain alcohol free. A limited supply of Librium 5 mg 1 pill twice daily as needed for agitation/tremors will be provided. Recommend to continue with thiamine 100 mg daily and folic acid 1 mg daily. 3. Patient with history of hypertension. Blood pressure has remained stable. No need for medication at this time. 4. Patient appears depressed. No suicidal ideation noted at this time. Recommend to follow up with a PCP to consider treatment. Counseling information will be provided. Diet: AHA Activity: Fall precautions Time spent managing pt's care (in minutes): 55
[2019-01-09] MEDS ORDERED: LORazepam 2 MG/ML VIAL IV SCH (00:55)
== END 2019-01-07 14:07 | disposition home or self-care (01) | DRG 897 ==
LOC: ER 19:48 → ERHOLD 01-07 00:55
PROVIDERS: ADMIT Internal Medicine; ATTEND Internal Medicine
DX: F10.239 Alcohol dependence with withdrawal, unspecified (principal); F10.10 Alcohol abuse, uncomplicated; I10 Essential (primary) hypertension; E86.0 Dehydration
CPT/HCPCS: 36415; 80048; 80076; 80307; 80320; 80329; 81003; 81025; 83735; 85025; 85610; 85730; 93005; 96365; 96366; 96375; 99285; J2405; J3411; J7030

== ENCOUNTER 2019-02-11 21:52 | Emergency (ER) | payer SELFPAY ==
[2019-02-11] MEDS ORDERED: FAMOTIDINE 20 MG/2 ML VIAL IV ONE (23:19)
[2019-02-11] MEDS ORDERED: NA CHLORIDE 0.9% 2,000 ML ONE (23:19)
[2019-02-11] MEDS ORDERED: THIAMINE 200 MG/2 ML INJ ONE (23:19)
[2019-02-11] MEDS ORDERED: LORazepam 2 MG/ML VIAL ONE (23:19)
[2019-02-11] MEDS ORDERED: Magnesium Sulfate 2gm IVPB 2 G/50 ML BAG IV ONE (23:20)
[2019-02-11] MEDS ORDERED: MULTIVITAMINS 10 ML VIAL (INJ) IV ONE (23:20)
[2019-02-11] MEDS ORDERED: FOLIC ACID 5 MG/ML VIAL ONE (23:20)
[2019-02-11] MEDS ORDERED: ONDANSETRON 4 MG/2 ML VIAL ONE (23:27)
[2019-02-11 23:28] LABS: Absolute Lymphocytes (CBC) 0.7 K/uL (0.7-4.9); Absolute Monocytes 0.9 K/uL (0.1-1.3); Absolute Neutrophil 6.4 K/uL (1.8-8.0); Basophils % 0.5 % (0-1.3); Hematocrit 46.6 % (36.0-45.0); Lymphocytes % 8.7 % (15.3-44.8); MPV 8.2 fL (7.6-11.3); Monocytes % 11.1 % (3.3-12.3); RBC Red Blood Cell Count 4.87 M/uL (3.86-4.86)
[2019-02-11 23:44] LABS: Protime INR 1.02
[2019-02-11 23:59] LABS: ALT/SGPT 66 U/L (12-78); AST/SGOT 152 U/L (15-37); Albumin 3.9 g/dL (3.4-5.0); Alkaline Phosphatase 90 U/L (45-117); BUN Blood Urea Nitrogen 10 mg/dL (7-18); Bicarbonate 25 mmol/L (21-32); Bilirubin Direct 0.3 mg/dL (0-0.2); Bilirubin Total 0.7 mg/dL (0.2-1.0); Glucose Level 109 mg/dL (74-106); Magnesium 1.9 mg/dL (1.8-2.4); NT PRO-BNP 54 pg/mL (<125); Potassium 3.9 mmol/L (3.5-5.1); Protein, Total 7.6 g/dL (6.4-8.2); Sodium Level 140 mmol/L (136-145); Troponin (Emerg Dept Use Only) < 0.02 ng/mL (0.0-0.045)
[2019-02-12] MEDS ORDERED: chlordiazePOXIDE HCl 25 MG CAP ONE (00:38)
[2019-02-12 01:07] LABS: Barbiturates NEGATIVE (NEGATIVE); Benzodiazepines POSITIVE (NEGATIVE); Cocaine NEGATIVE (NEGATIVE); METHAMPHETAM NEGATIVE (NEGATIVE); Methadone NEGATIVE (NEGATIVE); Opiates NEGATIVE (NEGATIVE); Phencyclidine NEGATIVE (NEGATIVE); THC Cannibis NEGATIVE (NEGATIVE)
[2019-02-12 01:15] LABS: Urine Blood 2+ (NEG); Urine Glucose NEGATIVE (NEG); Urine Protein 2+ (NEG); Urine Specific Gravity >1.030 (1.005-1.030)
--- NOTE | 2019-02-12 01:17 | ER ---
Nurse's Notes [facility] Name: Abby Hughes Age: 44 yrs Sex: Female : 1975 Arrival Date: 02/11/2019 Time: 21:53 Bed 26 Private MD: Diagnosis: Alcohol abuse;Alcohol dependence with withdrawal, uncomplicated Presentation: 02/11 22:15 Presenting complaint: Patient states: I am on alcohol withdrawal. I stopped drinking ca1 this morning because I am not feeling well. I had a fever on Sunday, throat pain, cough and congestion. I have been drinking 1 bottle of Vodka everyday for the past 1.5 years. Transition of care: patient was not received from another setting of care. Onset of symptoms was February 11, 2019. Risk Assessment: Do you want to hurt yourself or someone else? Patient reports no desire to harm self or others. Initial Sepsis Screen: Does the patient meet any 2 criteria? No. Patient's initial sepsis screen is negative. Does the patient have a suspected source of infection? No. Patient's initial sepsis screen is negative. Care prior to arrival: None. 22:15 Method Of Arrival: Wheelchair ca1 22:15 Acuity: LIZZIE 3 ca1 Triage Assessment: 22:18 General: Appears in no apparent distress. uncomfortable, Behavior is anxious, shaking. ca1 Reports feeling ill for 12-24 hours. Pain: Complains of pain in abdomen. 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 - Social history:: Smoking status: Patient/guardian denies using tobacco, Patient uses alcohol, on a daily basis. - Ebola Screening: : No symptoms or risks identified at this time. - Family history:: not pertinent. Screenin:21 Abuse screen: Denies threats or abuse. Denies injuries from another. Nutritional ca1 screening: No deficits noted. Tuberculosis screening: No symptoms or risk factors identified. Fall Risk None identified. Assessment: 22:21 General: Appears in no apparent distress. uncomfortable, Behavior is anxious, Shaking. ca1 Reports feeling ill for. Pain: Complains of pain in abdomen Pain does not radiate. Pain currently is 8 out of 10 on a pain scale. Quality of pain is described as crampy, Pain began 1 hour ago. Is continuous. Neuro: Level of Consciousness is awake, alert, obeys commands, Oriented to person, place, time, situation. Cardiovascular: Heart tones S1 S2 present Capillary refill < 3 seconds Patient's skin is warm and dry. Respiratory: Airway is patent Respiratory effort is even, unlabored, Respiratory pattern is regular, symmetrical, Breath sounds are clear bilaterally. Respiratory: Reports cough that is. GI: Abdomen is round non-distended, Bowel sounds present X 4 quads. Abd is soft X 4 quads Abdomen is tender to palpation in right lower quadrant Reports nausea, vomiting. : No deficits noted. No signs and/or symptoms were reported regarding the genitourinary system. EENT: No deficits noted. No signs and/or symptoms were reported regarding the EENT system. Derm: Skin is intact, is healthy with good turgor, Skin is pink, warm \T\ dry. Musculoskeletal: Circulation, motion, and sensation intact. Capillary refill < 3 seconds. 02/12 01:32 Reassessment: patient is up for discharge after magnesium infusion. mg2 02:34 Reassessment: Patient states feeling better. Patient states symptoms have improved. mg2 Vital Signs: 02/11 22:18 BP 107 / 83; Pulse 135; Resp 20; Temp 98.6; Pulse Ox 97% on R/A; Weight 61.23 kg; ca1 Height 5 ft. 2 in. (157.48 cm); Pain 8/10; 23:17 BP 145 / 103; Pulse 117; Resp 17; Temp 98.4; Pulse Ox 96% on R/A; ca1 23:39 BP 139 / 101; Pulse 100; Resp 18; Temp 98.7; Pulse Ox 100% on R/A; mg2 02/12 01:42 BP 131 / 91; Pulse 94; Resp 18; Temp 98.7; Pulse Ox 98% on R/A; mg2 02:35 BP 125 / 78; Pulse 90; Resp 18; Temp 98; Pulse Ox 100% on R/A; Pain 0/10; mg2 02/11 22:18 Body Mass Index 24.69 (61.23 kg, 157.48 cm) ca1 ED Course: 02/11 21:53 Patient arrived in ED. am2 22:05 Edvin Ashford MD is Attending Physician. jeanine 22:15 Yolande Payne, TANYA is Primary Nurse. ca1 22:17 Triage completed. ca1 22:18 Arm band placed on right wrist. ca1 22:21 Patient has correct armband on for positive identification. Placed in gown. Bed in low ca1 position. Call light in reach. Side rails up X 1. Pulse ox on. NIBP on. Warm blanket given. 22:48 XRAY Chest (1 view) In Process Unspecified. EDMS 23:20 No provider procedures requiring assistance completed. Inserted saline lock: 20 gauge mg2 in right forearm, using aseptic technique. 02/12 00:37 Urine collected: clean catch specimen, iwona colored, Amount Voided: 410mL. ca1 01:16 Kareem Bashir DO is Referral Physician. jeanine 02:35 IV discontinued, intact, bleeding controlled, No redness/swelling at site. Pressure mg2 dressing applied. Administered Medications: 02/11 23:16 Drug: Zofran 4 mg Route: IVP; Site: right forearm; ca1 02/12 00:28 Follow up: Response: No adverse reaction; Marked relief of symptoms mg2 02/11 23:19 Drug: Thiamine 100 mg Route: IV; Rate: bolus; Site: right forearm; mg2 02/12 00:28 Follow up: Response: No adverse reaction; Marked relief of symptoms; IV Status: mg2 Completed infusion 02/11 23:19 Drug: Pepcid 20 mg Route: IVP; Site: right forearm; mg2 02/12 00:27 Follow up: Response: No adverse reaction; Marked relief of symptoms mg2 02/11 23:19 Drug: Banana Bag - (NS 0.9% 1000 ml, foLIC Acid 1 mg, Thiamine 100 mg, Multivitamin 1 mg2 amp) Route: IV; Rate: 250 ml/hr; Site: right forearm; 02/12 02:37 Follow up: Response: No adverse reaction; IV Status: Order to discontinue infusion; IV mg2 Intake: 800ml 02/11 23:20 Drug: NS 0.9% 1000 ml Route: IV; Rate: 1 bolus; Site: right forearm; mg2 02/12 00:28 Follow up: Response: No adverse reaction; IV Status: Completed infusion; IV Intake: mg2 1000ml 02/11 23:20 Drug: Ativan 2 mg Route: IVP; Site: right forearm; mg2 02/12 00:28 Follow up: Response: No adverse reaction; Marked relief of symptoms mg2 00:14 Drug: Magnesium Sulfate 2 grams Route: IVPB; Infused Over: 2 hrs; Site: right forearm; mg2 02:37 Follow up: Response: No adverse reaction; IV Status: Completed infusion; IV Intake: [id number] 00:30 Drug: Librium - chlordiazePOXIDE 50 mg Route: PO; mg2 01:31 Follow up: Response: No adverse reaction; Marked relief of symptoms mg2 Intake: 00:28 IV: 1000ml; Total: 1000ml. mg2 02:37 IV: 800ml; Total: 1800ml. mg2 02:37 IV: 50ml; Total: 1850ml. mg2 Outcome: 01:16 Discharge ordered by . jeanine 02:35 Discharged to home ambulatory. mg2 02:35 Condition: stable 02:35 Discharge instructions given to patient, Instructed on discharge instructions, follow up and referral plans. medication usage, Demonstrated understanding of instructions, follow-up care, medications, Prescriptions given X 2. 02:38 Patient left the ED. mg2 Signatures: Dispatcher [employer] EDMS Edvin Ashford MD MD cha Moreno, Amanda am2 Gardose, Michele, TANYA RN mg2 Yolande Payne RN RN ca1
--- NOTE | 2019-02-12 01:17 | EDPHYS ---
Physician Documentation [facility] Name: Abby Hughes Age: 44 yrs Sex: Female : 1975 Arrival Date: 02/11/2019 Time: 21:53 Bed 26 Private MD: ED Physician Edvin Ashford HPI: 02/11 22:38 This 44 yrs old Female presents to ER via Wheelchair with complaints of jeanine Alcohol Withdrawal. 22:38 The patient presents to the emergency department alcohol withdrawal . Context: Method: jeanine the patient has a confirmed or suspected ingestion, of alcohol. Associated signs and symptoms: Pertinent positives: anxiety, dizziness. Severity of symptoms: At their worst the symptoms were. alcohol wd. Onset: The symptoms/episode began/occurred 2 day(s) ago. Severity of symptoms: At their worst the symptoms were moderate in the emergency department the symptoms are unchanged. The patient has experienced similar episodes in the past, multiple times. 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 - Social history:: Smoking status: Patient/guardian denies using tobacco, Patient uses alcohol, on a daily basis. - Ebola Screening: : No symptoms or risks identified at this time. - Family history:: not pertinent. ROS: 22:38 Constitutional: Negative for fever, chills, and weight loss, Eyes: Negative for injury, jeanine pain, redness, and discharge, ENT: Negative for injury, pain, and discharge, Neck: Negative for injury, pain, and swelling, Respiratory: Negative for shortness of breath, cough, wheezing, and pleuritic chest pain, Abdomen/GI: Negative for abdominal pain, nausea, vomiting, diarrhea, and constipation, Back: Negative for injury and pain, : Negative for injury, bleeding, discharge, and swelling, MS/Extremity: Negative for injury and deformity, Skin: Negative for injury, rash, and discoloration, Neuro: Negative for headache, weakness, numbness, tingling, and seizure, Allergy/Immunology: Negative for hives, rash, and allergies, Endocrine: Negative for neck swelling, polydipsia, polyuria, polyphagia, and marked weight changes, Hematologic/Lymphatic: Negative for swollen nodes, abnormal bleeding, and unusual bruising. 22:38 Cardiovascular: Positive for palpitations. Exam: 22:38 Constitutional: This is a well developed, well nourished patient who is awake, alert, jeanine and in no acute distress. Head/Face: Normocephalic, atraumatic. Eyes: Pupils equal round and reactive to light, extra-ocular motions intact. Lids and lashes normal. Conjunctiva and sclera are non-icteric and not injected. Cornea within normal limits. Periorbital areas with no swelling, redness, or edema. ENT: Nares patent. No nasal discharge, no septal abnormalities noted. Tympanic membranes are normal and external auditory canals are clear. Oropharynx with no redness, swelling, or masses, exudates, or evidence of obstruction, uvula midline. Mucous membranes moist. Neck: Trachea midline, no thyromegaly or masses palpated, and no cervical lymphadenopathy. Supple, full range of motion without nuchal rigidity, or vertebral point tenderness. No Meningismus. Chest/axilla: Normal chest wall appearance and motion. Nontender with no deformity. No lesions are appreciated. Respiratory: Lungs have equal breath sounds bilaterally, clear to auscultation and percussion. No rales, rhonchi or wheezes noted. No increased work of breathing, no retractions or nasal flaring. Abdomen/GI: Soft, non-tender, with normal bowel sounds. No distension or tympany. No guarding or rebound. No evidence of tenderness throughout. Back: No spinal tenderness. No costovertebral tenderness. Full range of motion. Skin: Warm, dry with normal turgor. Normal color with no rashes, no lesions, and no evidence of cellulitis. MS/ Extremity: Pulses equal, no cyanosis. Neurovascular intact. Full, normal range of motion. Neuro: Awake and alert, GCS 15, oriented to person, place, time, and situation. Cranial nerves II-XII grossly intact. Motor strength 5/5 in all extremities. Sensory grossly intact. Cerebellar exam normal. Normal gait. Psych: Awake, alert, with orientation to person, place and time. Behavior, mood, and affect are within normal limits. 22:38 Cardiovascular: Rate: tachycardic, Rhythm: regular, Heart sounds: normal, Edema: is not appreciated, JVD: is not appreciated. 22:38 Neuro: Orientation: is normal, appropriate for stated age, no acute changes, Mentation: is normal, appropriate for stated age, no acute changes, Memory: is normal, appropriate for stated age, no acute changes, Cranial nerves: grossly normal, is grossly normal based on the patient's age, no acute changes, Cerebellar function: is grossly normal, is grossly normal based on the patient's age, no acute changes, Motor: is normal, no acute changes, moves all fours, Sensation: is normal, no obvious gross deficits, Gait: not tested. Babinski testing is normal, seizure activity, is not displayed by the patient. Vital Signs: 22:18 BP 107 / 83; Pulse 135; Resp 20; Temp 98.6; Pulse Ox 97% on R/A; Weight 61.23 kg; ca1 Height 5 ft. 2 in. (157.48 cm); Pain 8/10; 23:17 BP 145 / 103; Pulse 117; Resp 17; Temp 98.4; Pulse Ox 96% on R/A; ca1 23:39 BP 139 / 101; Pulse 100; Resp 18; Temp 98.7; Pulse Ox 100% on R/A; mg2 02/12 01:42 BP 131 / 91; Pulse 94; Resp 18; Temp 98.7; Pulse Ox 98% on R/A; mg2 02:35 BP 125 / 78; Pulse 90; Resp 18; Temp 98; Pulse Ox 100% on R/A; Pain 0/10; mg2 02/11 22:18 Body Mass Index 24.69 (61.23 kg, 157.48 cm) ca1 MDM: 02/11 22:[address] [facility] 22:42 Data reviewed: vital signs, nurses notes, lab test result(s), EKG, radiologic studies, [facility] plain films. 02/11 22:36 Order name: Basic Metabolic Panel; Complete Time: 00:[address] [facility] 02/11 22:36 Order name: CBC with Diff; Complete Time: 23:[address] [facility] 02/11 22:36 Order name: LFT's; Complete Time: 00:[address] [facility] 02/11 22:36 Order name: Magnesium; Complete Time: 00:[address] [facility] 02/11 22:36 Order name: NT PRO-BNP; Complete Time: 00:[address] [facility] 02/11 22:36 Order name: PT-INR; Complete Time: 23:[address] [facility] 02/11 22:36 Order name: Troponin (emerg Dept Use Only); Complete Time: 00:[address] [facility] 02/11 22:36 Order name: Acetaminophen; Complete Time: 00:[address] [facility] 02/11 22:36 Order name: ETOH Level; Complete Time: 00:[address] [facility] 02/11 22:36 Order name: Ptt, Activated; Complete Time: 23:[address] [facility] 02/11 22:36 Order name: Salicylate; Complete Time: 00:[address] [facility] 02/11 22:36 Order name: Urine Drug Screen; Complete Time: 01:[address] [facility] 02/12 00:56 Order name: Urine Dipstick--Ancillary (enter results); Complete Time: 01:16 [facility] 02/12 00:56 Order name: Urine --Ancillary (enter results); Complete Time: 01:16 [facility] 02/11 22:36 Order name: XRAY Chest (1 view) [facility] 02/11 22:36 Order name: EKG; Complete Time: 22:[address] [facility] 02/11 22:36 Order name: Cardiac monitoring; Complete Time: 23:[address] [facility] 02/11 22:36 Order name: EKG - Nurse/Tech; Complete Time: 23:[address] [facility] 02/11 22:36 Order name: IV Saline Lock; Complete Time: 23:[address] [facility] 02/11 22:36 Order name: Labs collected and sent; Complete Time: 23:[address] [facility] 02/11 22:36 Order name: O2 Per Protocol; Complete Time: 23:[address] [facility] 02/11 22:36 Order name: O2 Sat Monitoring; Complete Time: 23:[address] [facility] 02/11 22:36 Order name: Urine Dipstick-Ancillary (obtain specimen); Complete Time: 00:[address] [facility] Administered Medications: 23:16 Drug: Zofran 4 mg Route: IVP; Site: right forearm; ca1 02/12 00:28 Follow up: Response: No adverse reaction; Marked relief of symptoms mg2 02/11 23:19 Drug: Thiamine 100 mg Route: IV; Rate: bolus; Site: right forearm; mg2 02/12 00:28 Follow up: Response: No adverse reaction; Marked relief of symptoms; IV Status: mg2 Completed infusion 02/11 23:19 Drug: Pepcid 20 mg Route: IVP; Site: right forearm; mg2 02/12 00:27 Follow up: Response: No adverse reaction; Marked relief of symptoms mg2 02/11 23:19 Drug: Banana Bag - (NS 0.9% 1000 ml, foLIC Acid 1 mg, Thiamine 100 mg, Multivitamin 1 mg2 amp) Route: IV; Rate: 250 ml/hr; Site: right forearm; 02/12 02:37 Follow up: Response: No adverse reaction; IV Status: Order to discontinue infusion; IV mg2 Intake: 800ml 02/11 23:20 Drug: NS 0.9% 1000 ml Route: IV; Rate: 1 bolus; Site: right forearm; mg2 02/12 00:28 Follow up: Response: No adverse reaction; IV Status: Completed infusion; IV Intake: mg2 1000ml 02/11 23:20 Drug: Ativan 2 mg Route: IVP; Site: right forearm; mg2 02/12 00:28 Follow up: Response: No adverse reaction; Marked relief of symptoms mg2 00:14 Drug: Magnesium Sulfate 2 grams Route: IVPB; Infused Over: 2 hrs; Site: right forearm; mg2 02:37 Follow up: Response: No adverse reaction; IV Status: Completed infusion; IV Intake: [id number] 00:30 Drug: Librium - chlordiazePOXIDE 50 mg Route: PO; mg2 01:31 Follow up: Response: No adverse reaction; Marked relief of symptoms mg2 Disposition: 02/12/19 01:16 Discharged to Home. Impression: Alcohol abuse, Alcohol dependence with withdrawal, uncomplicated. - Condition is Fair. - Discharge Instructions: Chemical Dependency, Finding Treatment for Addiction, Alcohol Withdrawal, Alcohol Use Disorder, Alcohol Withdrawal, [id number]. - Prescriptions for chlordiazepoxide HCl 25 mg Oral capsule - take 1 capsule by ORAL route 3 times per day; 30 capsule. Vitamin 27- 0.8 mg Oral Tablet - take 1 tablet by ORAL route once daily; 30 tablet. - Medication Reconciliation Form, Thank You Letter, Antibiotic Education, Prescription Opioid Use form. - Follow up: Private Physician; When: 2 - 3 days; Reason: Recheck today's complaints, Continuance of care, Re-evaluation by your physician. Follow up: Pending Sale To [facility]; When: 2 - 3 days; Reason: Recheck today's complaints, Continuance of care, Re-evaluation by your physician. - Problem is new. - Symptoms have improved. Signatures: Dispatcher [employer] EDEdvin Humphries MD MD cha Gardose, Michele, RN RN mg2 Yolande Payne RN RN ca1 Corrections: (The following items were deleted from the chart) 02:38 01:16 02/12/2019 01:16 Discharged to Home. Impression: Alcohol abuse; Alcohol mg2 dependence with withdrawal, uncomplicated. Condition is Fair. Discharge Instructions: Chemical Dependency, Finding Treatment for Addiction, Alcohol Withdrawal, Alcohol Use Disorder, Alcohol Withdrawal, [id number]. Prescriptions for chlordiazepoxide HCl 25 mg Oral capsule - take 1 capsule by ORAL route 3 times per day; 30 capsule, Vitamin 27-0.8 mg Oral Tablet - take 1 tablet by ORAL route once daily; 30 tablet. and Forms are Medication Reconciliation Form, Thank You Letter, Antibiotic Education, Prescription Opioid Use. Follow up: Private Physician; When: 2 - 3 days; Reason: Recheck today's complaints, Continuance of care, Re-evaluation by your physician. Follow up: Pending Sale To [facility]; When: 2 - 3 days; Reason: Recheck today's complaints, Continuance of care, Re-evaluation by your physician. Problem is new. Symptoms have improved. jeanine
[2019-02-12 04:15] VITALS: BP 125/78; TEMP 98; O2SAT 100
--- NOTE | 2019-02-12 08:05 | RAD REPORT ---
EXAM DESCRIPTION: RAD - Chest Single View - 02/11/2019 10:48 pm CLINICAL HISTORY: Cough COMPARISON: October 2018 TECHNIQUE: AP portable chest image was obtained 2245 hours . FINDINGS: Lungs are clear. Heart and vasculature are normal. No measurable pleural effusion and no p neumothorax. No acute bony abnormality seen. No acute aortic findings suspected. IMPRESSION: No acute cardiopulmonary process. No significant interval change.
--- NOTE | 2019-02-12 10:29 | EKG ---
Test Date: 2019-02-11 Test Time: 23:47:15 Peer Educator: MG MEASUREMENT RESULTS: Intervals: Rate: 94 AL: 158 QRSD: 84 QT: 376 QTc: 470 [place]: P: 62 AL: 158 QRS: 35 T: 45 INTERPRETIVE STATEMENTS: Normal sinus rhythm Normal ECG Compared to ECG 01/06/2019 20:40:38 Sinus tachycardia no longer present Electronically Signed On 02-12-19 10:28:16 CDT by Codey Arteaga
== END 2019-02-12 02:38 | disposition home or self-care (01) ==
LOC: ER 21:52
DX: F10.20 Alcohol dependence, uncomplicated (principal)
CPT/HCPCS: 36415; 71045; 80048; 80076; 80307; 80320; 80329; 81003; 81025; 83735; 83880; 84484; 85025; 85610; 85730; 93005; 96365; 96366; 96367; 96368; 96375; 99284; J2405; J3411; J3475; J7030

== ENCOUNTER 2019-10-20 21:48 | Emergency (ER) | payer SELFPAY ==
--- OUTSIDE RECORDS SUMMARY | 2019-10-20 21:55 | XMS REPORT | Continuity of Care Document ---
:1975 Author Organization [facility] Address [address] [place] [address] Allergies, Adverse Reactions, Alerts No known allergies. Medications Medication Status Dose Units Route Sig Qty Days Start End Date Instructions Date Lorazepam Discontinue 0.5 ORAL Three 15 5 June d Times A , , Day for 2018 2018 Withdra 7:08pm wals Ondansetron Discontinue 1 ORAL Every 6 20 5 June Hcl d Hours , , (01-01-03-15) 7:08pm for Nausea Problems No problem information available. Procedures No procedure information available. Relevant Diagnostic Tests and/or Laboratory Data Laboratory Results Test Date/Time Result Interpretation Reference Result Comment Performing Range Site White Blood June 7.1 4.0-11.5 [facility], 104 Count 2018 1:26pm [facility] 28833 Red Blood June 4.12 3.80-5.20 [facility], 104 Count 2018 1:26pm [facility] 14465 Hemoglobin June 13.0 10.5-15.7 [facility], 104 2018 1:26pm [facility] 28373 Hematocrit June 39.6 34.0-50.0 [facility], 104 2018 1:pm [facility] 95994 Mean June 96.1 86-100 [facility], 104 Corpuscular 2018 Volume 1:pm [facility] 11712 Mean June 31.6 26.2-33.4 [facility], 104 Corpuscular 2018 Hemoglobin 1:pm [facility] [address]01 Mean June 32.8 30-34 [facility], 104 Corpuscular 2018 Hemoglobin 1:pm [facility] 69526 Concent Red Cell June 11.9 12.0-15.5 [facility], 104 Distribution 2018 Width 1:26pm [facility] 25596 Platelet Count June 197 165-450 [facility], [address] 2018 1:26pm [facility] 52884 Mean Platelet October 9.6 9.4-12.6 [facility], [address] Volume 2018 1:26pm [place] [address] Neutrophils October 71.9 44.4-80.1 [facility], [address] (%) (Auto) 2018 1:26pm [place] [address] Immature October 0.4 0.0-0.4 [facility], [address] Granulocyte % 2018 (Auto) 1:26pm [place] [address] Lymphocytes October 13.6 10.0-50.0 [facility], [address] (%) (Auto) 2018 1:26pm [place] [address] Monocytes (%) October 11.6 3.6-12.0 [facility], [address] (Auto) 2018 1:26pm [facility] [address] Eosinophils October 1.7 0.0-5.4 [facility], [address] (%) (Auto) 2018 1:26pm [facility] 96[address] Basophils (%) October 0.8 0.1-1.2 [facility], [address] (Auto) 2018 1:26pm [place] [address] Neutrophils # October 5.08 1.56-6.13 [facility], [address] (Auto) 2018 1:26pm [facility] [address] Absolute October 0.0 0.0-0.03 [facility], [address] Immature 2018 Granulocyte 1:26pm [facility] 97909 (auto Lymphocytes # October 1.0 1.18-3.74 [facility], [address] (Auto) 2018 1:26pm [place] [address] Monocytes # October 0.82 0.24-0.86 [facility], [address] (Auto) 2018 1:26pm [place] [address] Eosinophils # October 0.12 0.04-0.36 [facility] [address] (Auto) 2018 1:26pm [place] [address] Basophils # October 0.06 0.01-0.08 [facility] [address] (Auto) 2018 1:26pm [facility] [address]298 Nucleated Red October 0 0-0.2 [facility], [address] Blood Cells % 2018 1:26pm [facility] 16528 Nucleated Red June 0 0 [facility], [address] [facility] Blood Cells # 2018 1:26pm [facility] [address]167 Prothrombin October 10.6 10.3-12.3 THERAPEUTIC [facility], [address] [place] [address] Time 2018 LEVEL: 1.5 to 1:26pm 1.9 times normal [place] [address] range of PT Prothromb Time June 0.96 Recommended [facility], [address] [place] [address] International 2018 therapeutic Ratio 1:26pm range for [place] [address] patients receiving warfarin (coumadin) therapy: INR is 2.0 to 3.0Recommended range for patients with mechanical prosthetic heart valves: INR is 2.5 to 3.5 Activated October 24.0 22.5-37.0 [facility], [address] [place] [address] Partial 2018 Thromboplast 1:26pm [place] [id number] Time Urine Color October LIGHT [facility], [address] [place] [address] 2018 YELLOW 2:04pm [place] [id number] Urine October CLEAR CLEAR [facility], [address] [place] [address] Appearance 2018 2:04pm [place] [id number] Urine Glucose October NEGATIVE NEGATIVE [facility], [address] [place] [address] (UA) 2018 2:04pm [facility] 209[address] Urine October NEGATIVE NEGATIVE [facility], [address] [place] [address] Bilirubin 2018 2:04pm [facility] 40151 Urine Ketones October NEGATIVE NEGATIVE [facility], [address] [place] [address] 2018 2:04pm [facility] [address]31 Urine Specific October 1.006 1.003-1.03 [facility], [address] [place] [address] Mesick 2018 0 2:04pm [facility] 38629 Urine Blood October NEGATIVE NEGATIVE [facility], [address] [place] [address] 2018 2:04pm [facility] [address]1589 Urine pH June 6.500 5-9 [facility], [address] [place] [address] 2018 2:04pm [facility] [address] Urine Protein October NEGATIVE NEGATIVE [facility], [address] [place] [address] 2018 2:04pm [facility] 86755 Urine October NORMAL 0.2-1.0 [facility], [address] [place] [address] Urobilinogen 2018 2:04pm [facility] 50827 Urine Nitrate October NEGATIVE NEGATIVE [facility], [address] [place] [address] 2018 2:04pm [facility] [address]3665 Urine October 1+ NEGATIVE [facility], [address] [place] [address] Leukocyte 2018 Esterase 2:04pm [facility] [address]7623 Urine RBC June 1-5 0-5 [facility], 104 2018 2:04pm [place] [address] Urine WBC June 6-10 0-5 [facility], 104 2018 2:04pm [place] [address] Urine October 1-5 0-5 [facility], 104 Epithelial 2018 Cells 2:04pm [facility] 10072 Urine Bacteria June TNTC (4+) None [facility], [facility] 2018 Detect 2:04pm [facility] 06694 Urine Casts June None None [facility], [facility] 2018 Detected Detect 2:04pm [facility] 44629 Urine Culture June YES [facility], [address] [place] [address] Reflexed 2018 2:04pm [facility] 43165 Random Glucose June 127 74-106 [facility], [facility] 2018 1:26pm [facility] 66351 Blood Urea June 13 6-20 [facility], [facility] Nitrogen 2018 1:26pm [facility] 61327 Serum June 276 280-300 [facility], [address] [place] [address] Osmolality 2018 1:26pm [facility] 38065 Creatinine June 0.7 0.50-0.90 [facility], [facility] 2018 1:26pm [facility] 94678 Glomerular June > 60.00 GFR RESULTS ARE [facility], [facility] Filtration 2018 REPORTED IN Rate Calc 1:26pm mL/min/1.73m2.No [facility] [address]804 rmal GFR: >60mL/minModerat kade decreased GFR: 30-59 mL/minSeverely decreased GFR: 15-29 mL/minKidney Failure (or Dialysis): <15 mL/minThe calculated eGFR is not valid for patients younger than 18 years or older than 75 years. BUN/Creatinine June 18.6 12-20 [facility], 104 Ratio 2018 1:26pm [facility] 11549 Sodium Level June 137 135-145 [facility], [facility] 2018 1:26pm [facility] 19035 Potassium June 3.5 3.5-5.2 [facility], [address] [place] [address] Level 2018 1:26pm [facility] 20689 Chloride Level June 97 98-108 [facility], 2018 1:26pm [facility] 70418 Carbon Dioxide June 27 21-32 [facility], [address] [facility] [address] Level 2018 1:26pm [facility] 68[address] Anion Gap October 16.5 12-20 [facility], [address] [facility] 2018 1:26pm [facility] 57269 Calcium Level June 10.2 8.6-10.0 [facility], [address] [facility] 2018 1:26pm [facility] 88543 Total Protein October 7.4 6.6-8.7 [facility], [address] [facility] 2018 1:26pm [facility] [address]3477 Albumin October 4.3 3.5-5.2 [facility], [address] [facility] 2018 1:26pm [facility] 72231 Globulin October 3.1 [facility], [address] [facility] 2018 1:26pm [facility] [address]7038 Albumin/Globul October 1.4 >1.0 [facility], [address] [facility] in Ratio 2018 1:26pm [facility] 81783 Total October 0.7 0.0-1.2 [facility], [address] [facility] Bilirubin 2018 1:26pm [facility] 42216 Aspartate October 46 15-32 [facility], [address] [facility] Amino Transf 2018 (AST/SGOT) 1:26pm [facility] [address] Alanine June 36 0-33 [facility], [address] [facility] Aminotransfera 2018 se (ALT/SGPT) 1:26pm [facility] 01558 Total Alkaline June 88 35-105 [facility], [address] [facility] Phosphatase 2018 1:26pm [facility] 30487 Urine October NEGATIVE NEGATIVE [facility], [address] Amphetamines 2018 Screen 2:04pm [facility] 43722 Urine October NEGATIVE NEGATIVE [facility], [address] [facility] Barbiturates, 2018 Quantitative 2:04pm [facility] 19149 Urine October NEGATIVE NEGATIVE [facility], [address] [facility] Benzodiazepine 2018 s Screen 2:04pm [facility] 46873 Urine October NEGATIVE NEGATIVE [facility], [address] [facility] Cannabinoids 2018 2:04pm [facility] 75900 Urine Cocaine October NEGATIVE NEGATIVE [facility], [address] Metabolite 2018 2:04pm [facility] 32683 Urine Opiates October NEGATIVE NEGATIVE [facility], [address] [facility] [address] Screen 2018 2:04pm [facility] 74321 Urine October NEGATIVE NEGATIVE [facility], [address] [place] [address] Phencyclidine 2018 (PCP) Level 2:04pm [facility] [address]285 Methadone October NEGATIVE NEGATIVE [address] 2018 2:04pm [facility] [address] Propoxyphene October NEGATIVE NEGATIVE [address] 2018 2:04pm [facility] 17264 Oxycodone October NEGATIVE NEGATIVE [address] 2018 2:04pm [facility] 17803 Urine Drug October . DRUGS OF ABUSE [facility], [address] [place] [address] Screen Note 2018 CUT-OFF 2:04pm VALUESAMPHETAMIN [facility] 09678 ES (AMPH) NEGATIVE (CUT OFF CONC: 1000 NG/ML)BARBITUATE S (CHACHO) NEGATIVE (CUT OFF CONC: 200 NG/ML)[place] (BARTOLO) NEGATIVE (CUT OFF CONC: 300 NG/ML)CANNABINOI DS (THC) NEGATIVE (CUT OFF CONC: 50 NG/ML)COCAINE (ANTONIO) NEGATIVE (CUT OFF CONC: 300 NG/ML)OPIATES (OPI) NEGATIVE (CUT OFF CONC: 300 NG/ML)PHENCYCLID INE (PCP) NEGATIVE (CUT OFF CONC: 25 NG/ML)METHADONE (MTD) NEGATIVE (CUT OFF CONC: 300 NG/ML)PROPOXYPHE NE (PPX) NEGATIVE (CUT OFF CONC: 300 NG/ML)OXYCODONE (OXY) NEGATIVE (CUT OFF CONC: 100 NG/ML)ANY POSITIVE RESULT IS UNCONFIRMED. CONFIRMATION AND QUANTITATION AVAILABLE UPON MD REQUEST. Salicylates October < 0.4 2.8-20.[address] 2018 1:26pm [facility] [address]68 Acetaminophen October < 5.0 10.0-30.[address] 2018 1:26pm [facility] [address]2787 Ethyl Alcohol October < 10.1 0.00-10.[address] 2018 1:26pm [facility] [address] Health Concerns No known health concerns documented Chief Complaint and Reason for Visit Chief Complaint General Complaint Reason for Visit [id number] Encounters Encounter Location(s) Arrival/Admit Date Discharge/Depart Date Provider(s) Departed [place] June 26, 2019 June 26, 2019 ALIX BURTON MD Emergency Room [facility] 12:15pm 7:37pm Ctr Assessments No Assessments Information Available Functional Status No Functional Status information available Goals No Goals Information Available Immunizations No Immunization Information Available Mental Status No Mental Status Information Available Medical Equipment No Medical Equipment Information available Insurance Providers Guarantor Abby Ordaz Address [address] [facility] [address] Contact Info. Home Phone: Payer Policy Id Coverage Id Subscriber's Subscriber Id Effective Expiration Name Date Date Self Pay Abby Ordaz Insurance Plan of Treatment TAKE ALL MEDICATIONS PRESCRIBED USE TYLENOL OR MOTRIN DIRECTED FOR PAIN FOLLOW UP WITH MARIA DEL CARMENANA IN 2-3 DAYS FOLLOW UP WITH A PRIMARY CARE PROVIDER IN 2-3 DAYS RETURN TO THE ER IF YOUR SYMPTOMS WORSEN Future Tests Future scheduled test information is unavailable Pending Tests Test Name Date ordered Urine Culture June 26, 2019 2:04pm Future Visits Future appointment information is unavailable Referrals to Other Providers Reason for Referral Start Provider Provider Contact Provider Address Referral Date Information PHYSICIAN, NO Future Procedures Future procedure information is unavailable Future Medications Future medication information is unavailable Patient Instructions Generalized Anxiety Disorder, Adult Alcohol Withdrawal Syndrome, [id number]-Jtde Social History Smoking Status Status Date of Observation Never smoked tobacco (finding) June 26, 2019 12:36pm Assigned Sex Female Vital Signs Vital Reading Result Collection Date/Time
--- OUTSIDE RECORDS SUMMARY | 2019-10-20 21:55 | XMS REPORT ---
:1975 [facility] Address [address] [place] [address] Care Team Providers Name Role Phone Unavailable Unavailable Unavailable Payers Payer Name Policy Type Policy Number Effective Date Expiration Date Problems This patient has no known problems. Allergies, Adverse Reactions, Alerts Allergy Name Allergy Status Severity Reaction(s) Onset Inactive Treating Comments Type Date Date Clinician codeine DA Active [place] 2018-09 00:00: 00 acetaminophen DA Active [place] 2018-09 00:00: 00 morphine DA Active 2018-09 00:00: 00 No Known DA Active U Allergies 11-29 00:00: 00 Medications This patient has no known medications. Results Test Description Test Time Test Comments Text Results Atomic Results Result Comments GASTRIC,BIOPSY 2019-08-29 RUN 16:51:00 DATE: 08/29/19 [place] [facility] PAGE 1 RUN TIME: 1651 Specimen Inquiry RUN USER: INTERFACE DENISHA ENT: MAYNOR ORDAZ LOC: JUAN U #: [id number] AGE/SX: 44/F ROOM: [facility] RE08/24/19REG DR: Joyce Schrader MD : 77 BED: A DIS: 08/28/19 STATUS: DIS IN TLOC: SPEC #: [id number] RECD: 08/28/19 STATUS: MIKE REQ #: [id number] JEROME: 08/27/[address] [facility] [address]: Clifton Swanson MD ENTERED: 08/28/19 SP TYPE: GASTRIC BX OTHR DR: Jerry Fishre MD, Fernando E MD Qureshi, Salah Uddin MDORDERED: GROSS COPIES TO: Clifton Swanson MD [address] [place] [address] Jerry Fisher MD [address], [address] [place] [id number] Cam Becerra MD [address] [place] [address] [email or web address] [email or web address] [email or web address] MD [address] [facility] [address] [place] [address] PROCEDURES: GROSS (08/29/19- 6143) TISSUES: 1. GASTRIC CORPUS - BX 2. ESOPHAGUS, NOS - RANDOM BX CLINICAL HISTORY COLLECTION DATE: 08/27/19 DYSPHAGIA FINAL DIAGNOSIS Stomach, biopsy: GASTRIC MUCOSA WITH MINIMAL CHRONIC INFLAMMATION NO DIAGNOSTIC HELICOBACTER IDENTIFIED (GIEMSA STAIN) NO ULCERATION, INTESTINAL METAPLASIA, DYSPLASIA OR MALIGNANCY IDENTIFIED CONTINUED ON NEXT PAGE RUN DATE: 08/29/19 [place] [facility] PAGE 2 RUN TIME: 1651 Specimen Inquiry RUN USER: INTERFACE SPEC #: [id number] PATIENT: MAYNOR ORDAZ # [id number] (Continued) ------- FINAL DIAGNOSIS (Continued) Esophagus, random biopsies: GASTROESOPHAGEAL MUCOSA WITH MINIMAL FOCAL CHRONIC INFLAMMATION NEGATIVE FOR INTESTINAL METAPLASIA, DYSPLASIA OR MALIGNANCY / D [id number], 30833 MACROSCOPIC The first specimen is received in formalin, labeled with the patient's name, identified as "gastric biopsy", and consists of multiple portions of hermosillo- pink soft tissue measuring 0.9 cm in aggregate, submitted as (1). The second specimen is received in formalin, labeled with the patient's name, identified as "random esophagus biopsy", and consists of multilpe fragments of hermosillo biopsy tissue measuring 0.8 cm in aggregate, entirely submitted as (2). GROSS PERFORMED AT [facility] [address] [facility] [address] [phone] MICROSCOPIC All of the stains, including any controls performed, stain appropriately. MICROSCOPIC PERFORMED AT [facility] [address] [place] [address] [phone] PERFORMING SITE Diagnosis performed at: [facility] [address] [place], [place] [phone] CONTINUED ON NEXT PAGE RUN DATE: 08/29/19 [facility] PAGE 3 RUN TIME: 1651 Specimen Inquiry RUN USER: INTERFACE SPEC #: [id number] PATIENT: MAYNOR ORDAZ # [id number] (Continued) ------- Signed SIGNATURE ON FILE Asif Yang MD 1651 END OF REPORT [place] 2019-08-28 RUN 17:40:00 DATE: 08/28/19 [facility] PAGE 1 RUN TIME: 1741 Specimen Inquiry RUN USER: INTERFACE DENISHA ENT: MAYNOR ORDAZ LOC: JUAN U #: [id number] AGE/SX: 44/F ROOM: [facility] RE08/24/19REG DR: Joyce Schrader MD : 77 BED: A DIS: 08/28/19 STATUS: DIS IN TLOC: SPEC #: [id number] RECD: 08/26/19 STATUS: MIKE CHAMBERLAIN #: [id number] JEROME: 08/26/[address] [facility] [address]: Cam Becerra MD ENTERED: 08/26/19 SP TYPE: GALLBLADD OTHR DR: Jerry Fisher MD, Fernando E MD Qureshi, Salah Uddin MDORDERED: GROSS COPIES TO: Jerry Fisher MD [address], [address] [place] [address] Cam Becerra MD [address] [place], [place] [address] [email or web address] Susana Noe MD [address] [facility] [address] [place] [address] MARKERS : ABNORMAL TISSUE, GALLBLADDER PROCEDURES: GROSS (08/28/19-1322) TISSUES: GALLBLADDER, NOS CLINICAL HISTORY COLLECTION DATE: 08/26/2019 CHOLECYSTITIS FINAL DIAGNOSIS Gallbladder, cholecystectomy: CHRONIC CHOLECYSTITIS CHOLELITHIASIS NEGATIVE FOR MALIGNANCY RRB/selina Joy * * CONTINUED ON NEXT PAGE RUN DATE: 08/28/19 [facility] PAGE 2 RUN TIME: 1741 Specimen Inquiry RUN USER: INTERFACE SPEC #: [id number] PATIENT: MAYNOR ORDAZ # [id number] (Continued) ------- FINAL DIAGNOSIS (Continued) [address] MACROSCOPIC The specimen is received in formalin, labeled with the patient's name, and identified as "gallbladder". It consists of an intact gallbladder measuring 11.5 cm in length and up to 4.8 cm in diameter. The serosa is hermosillo glistening. The specimen is opened to reveal dark-green bile and two black gallstones measuring up to 1.6 cm in greatest diameter. The mucosa is hermosillo-pink and glistening. The gallbladder wall measures up to 0.2 cm. No focal lesions are identified. Optical Glass Etcher tissue is submitted in a single cassette. GROSS PERFORMED AT [facility] [address] [place] [address] [phone])[phone] MICROSCOPIC All of the stains, including any controls performed, stain appropriately. MICROSCOPIC PERFORMED AT [facility] [address] [place] [address] (p)[phone] PERFORMING SITE Diagnosis performed at: [facility], [place] [address] [place] [address] -------- Signed SIGNATURE ON FILE Baldo Marrufo MD 08/28/19 1740 END OF REPORT - [facility] 2019-08-28 FAX: [facility] [place]: B St: ADM FAX: W/C V 14:33:00 Diana Campo [phone] ------ Name: MAYNOR ORDAZ [facility] : 1975 Age/S: 44/F [address] [facility] Unit #: [id number] Loc: [address] [place] [address] Phys: Diana Campo Acct: [id number] Dis Date: Status: ADM IN PHONE #: [phone] Exam Date: 08/28/2019 1153 FAX #: [phone] Reason: DIFFICULT IN SWALLOW EXAMS: CPT CODE: [id number] XR [facility] W/C V [address]3330 CLINICAL HISTORY: DIFFICULT IN SWALLOW TECHNIQUE : Fluoroscopic swallow function evaluation in conjunction with speech therapy. Fluoroscopy time 135 seconds;Dose: 6.3 mGy. IMPRESSION: Handling of varying consistencies of barium were evaluated. No penetration or aspiration was reported by speech pathology. Please see separate speech pathology report for complete discussion. at 1433 Reported and signed by: Tommy Chauhan MD CC: Joyce Schrader MD; Diana Campo Technologist: FREDY CARDONA RT(R) Trnscrd Date/Time/By: 08/28/2019 (5820) : By: [email or web address] Orig Print D/T : S: 08/28/2019 (0184) PAGE 1 Signed Report BASIC METABOLIC PANEL 2019-08-28 13:26:00 Test Item Value Reference Range Comments SODIUM (test code=NA) 140 mmol/L 136-145 POTASSIUM (test code=K) 3.5 mmol/L 3.5-5.1 CHLORIDE (test code=CL) 110.0 mmol/L 98-107 CARBON DIOXIDE (test code=CO2) 18.0 mmol/L 21-32 ANION GAP (test code=GAP) 15.5 10-20 GLUCOSE (test code=GLU) 105 mg/dL 74-106 BLOOD UREA NITROGEN (test 2 mg/dL 7-18 code=BUN) GLOMERULAR FILTRATION RATE (test > 60 mL/min >=60 Estimated GFR by using code=GFR) Modified MDRD formula.Chronic kidney disease is defined as either kidney damageor GFR <60 mL/min/1.73 m2 for >3 months. CREATININE (test code=CREAT) 0.60 mg/dL 0.55-1.02 Note change in reference range due to change in reagent. BUN/CREATININE RATIO (test 3.1 10-20 code=BUN/CREA) CALCIUM (test code=CA) 9.2 mg/dL 8.5-10.1 BASIC METABOLIC [id number] 13:09:00 Test Item Value Reference Range Comments SODIUM (test code=NA) 140 mmol/L 136-145 POTASSIUM (test code=K) 3.5 mmol/L 3.5-5.1 CHLORIDE (test code=CL) 110.0 mmol/L 98-107 CARBON DIOXIDE (test code=CO2) mmol/L 21-32 ANION GAP (test code=GAP) 10-20 GLUCOSE (test code=GLU) mg/dL 74-106 BLOOD UREA NITROGEN (test code=BUN) mg/dL 7-18 GLOMERULAR FILTRATION RATE (test code=GFR) mL/min >=60 CREATININE (test code=CREAT) mg/dL 0.55-1.02 BUN/CREATININE RATIO (test code=BUN/CREA) 10-20 CALCIUM (test code=CA) mg/dL 8.5-10.1 CBC W/AUTO [id number] 12:54:00 Test Item Value Reference Range Comments WHITE BLOOD CELL (test 5.4 K/mm3 4.5-12.5 code=WBC) RED BLOOD CELL (test code=RBC) 3.93 mill/mm3 3.7-5.2 HEMOGLOBIN (test code=HGB) 12.8 gram/dL 11.5-15.5 RESULT VERIFIED BY REPEAT ANALYSIS HEMATOCRIT (test code=HCT) 41.4 % 36.0-46.0 MEAN CELL VOLUME (test 105.3 fL 80-98 code=MCV) MEAN CELL HGB (test code=MCH) 32.6 picogram 27.0-33.0 MEAN CELL HGB CONCETRATION 30.9 gram/dL 33.0-36.0 (test code=MCHC) RED CELL DISTRIBUTION WIDTH 17.2 % 11.6-16.2 (test code=RDW) RED CELL DISTRIBUTION WIDTH SD 66.1 fL 37.0-51.0 (test code=RDW-SD) PLATELET COUNT (test code=PLT) 204 K/mm3 150-450 RESULT VERIFIED BY REPEAT ANALYSIS MEAN PLATELET VOLUME (test 9.4 fL 6.7-11.0 code=MPV) NEUTROPHIL % (test code=NT%) 64.6 % 39.0-69.0 IMMATURE GRANULOCYTE % (test 1.3 % 0.0-5.0 code=IG%) LYMPHOCYTE % (test code=LY%) 16.6 % 25.0-55.0 MONOCYTE % (test code=MO%) 14.9 % 0.0-10.0 EOSINOPHIL % (test code=EO%) 1.7 % 0.0-5.0 BASOPHIL % (test code=BA%) 0.9 % 0.0-1.0 NUCLEATED RBC % (test 0.0 % 0-0 code=NRBC%) NEUTROPHIL # (test code=NT#) 3.51 K/mm3 1.8-7.7 IMMATURE GRANULOCYTE # (test 0.07 x10 3/uL 0-0.03 code=IG#) LYMPHOCYTE # (test code=LY#) 0.90 K/mm3 1.0-5.0 MONOCYTE # (test code=MO#) 0.81 K/mm3 0-0.8 EOSINOPHIL # (test code=EO#) 0.09 K/mm3 0.0-0.5 BASOPHIL # (test code=BA#) 0.05 K/mm3 0.0-0.2 NUCLEATED RBC # (test 0.00 K/mm3 0.0-0.1 code=NRBC#) MANUAL DIFF REQUIRED (test NO code=MDIFF) HEPATIC FUNCTION [id number] 08:22:00 Test Item Value Reference Range Comments TOTAL PROTEIN (test code=PROT) 6.5 gram/dL 6.4-8.2 ALBUMIN (test code=ALB) 3.0 g/dL 3.4-5.0 GLOBULIN (test code=GLOB) 3.5 gram/dL 2.7-4.2 ALBUMIN/GLOBULIN RATIO (test 0.9 0.75-1.50 code=A/G) BILIRUBIN TOTAL (test 0.40 mg/dL 0.0-1.0 code=BILT) BILIRUBIN DIRECT (test 0.16 mg/dL 0.0-0.20 code=BILD) SGOT/AST (test code=AST) 63 IUnit/L 15-37 SGPT/ALT (test code=ALT) 44 IUnit/L 12-78 ALKALINE PHOSPHATASE TOTAL 71 IUnit/L 45-117 Note change in reference (test code=ALKP) range due to change in reagent. CBC W/AUTO [id number] 07:23:00 Test Item Value Reference Range Comments WHITE BLOOD CELL (test code=WBC) 6.4 K/mm3 4.5-12.5 RED BLOOD CELL (test code=RBC) 3.13 mill/mm3 3.7-5.2 HEMOGLOBIN (test code=HGB) 10.6 gram/dL 11.5-15.5 HEMATOCRIT (test code=HCT) 33.7 % 36.0-46.0 MEAN CELL VOLUME (test code=MCV) 107.7 fL 80-98 MEAN CELL HGB (test code=MCH) 33.9 picogram 27.0-33.0 MEAN CELL HGB CONCETRATION (test code=MCHC) 31.5 gram/dL 33.0-36.0 RED CELL DISTRIBUTION WIDTH (test code=RDW) 17.2 % 11.6-16.2 RED CELL DISTRIBUTION WIDTH SD (test 64.1 fL 37.0-51.0 code=RDW-SD) PLATELET COUNT (test code=PLT) 153 K/mm3 150-450 MEAN PLATELET VOLUME (test code=MPV) 9.5 fL 6.7-11.0 NEUTROPHIL % (test code=NT%) 66.9 % 39.0-69.0 IMMATURE GRANULOCYTE % (test code=IG%) 1.3 % 0.0-5.0 LYMPHOCYTE % (test code=LY%) 17.3 % 25.0-55.0 MONOCYTE % (test code=MO%) 13.2 % 0.0-10.0 EOSINOPHIL % (test code=EO%) 0.5 % 0.0-5.0 BASOPHIL % (test code=BA%) 0.8 % 0.0-1.0 NUCLEATED RBC % (test code=NRBC%) 0.0 % 0-0 NEUTROPHIL # (test code=NT#) 4.26 K/mm3 1.8-7.7 IMMATURE GRANULOCYTE # (test code=IG#) 0.08 x10 3/uL 0-0.03 LYMPHOCYTE # (test code=LY#) 1.10 K/mm3 1.0-5.0 MONOCYTE # (test code=MO#) 0.84 K/mm3 0-0.8 EOSINOPHIL # (test code=EO#) 0.03 K/mm3 0.0-0.5 BASOPHIL # (test code=BA#) 0.05 K/mm3 0.0-0.2 NUCLEATED RBC # (test code=NRBC#) 0.00 K/mm3 0.0-0.1 BASIC METABOLIC [id number] 07:47:00 Test Item Value Reference Range Comments SODIUM (test code=NA) 140 mmol/L 136-145 POTASSIUM (test code=K) 3.7 mmol/L 3.5-5.1 CHLORIDE (test code=CL) 111.0 mmol/L 98-107 CARBON DIOXIDE (test 17.0 mmol/L 21-32 code=CO2) ANION GAP (test code=GAP) 15.7 10-20 GLUCOSE (test code=GLU) 70 mg/dL 74-106 BLOOD UREA NITROGEN (test 3 mg/dL 7-18 code=BUN) GLOMERULAR FILTRATION RATE > 60 mL/min >=60 Estimated GFR by using (test code=GFR) Modified MDRD formula.Chronic kidney disease is defined as either kidney damageor GFR <60 mL/min/1.73 m2 for >3 months. CREATININE (test code=CREAT) 0.60 mg/dL 0.55-1.02 Note change in reference range due to change in reagent. BUN/CREATININE RATIO (test 5.0 10-20 code=BUN/CREA) CALCIUM (test code=CA) 8.1 mg/dL 8.5-10.1 [id number] 07:47:00 Test Item Value Reference Range Comments MAGNESIUM (test code=MAG) 1.8 mg/dL 1.8-2.4 CBC W/AUTO [id number] 07:24:00 Test Item Value Reference Range Comments WHITE BLOOD CELL (test code=WBC) 4.9 K/mm3 4.5-12.5 RED BLOOD CELL (test code=RBC) 3.37 mill/mm3 3.7-5.2 HEMOGLOBIN (test code=HGB) 11.2 gram/dL 11.5-15.5 HEMATOCRIT (test code=HCT) 35.2 % 36.0-46.0 MEAN CELL VOLUME (test code=MCV) 104.5 fL 80-98 MEAN CELL HGB (test code=MCH) 33.2 picogram 27.0-33.0 MEAN CELL HGB CONCETRATION (test code=MCHC) 31.8 gram/dL 33.0-36.0 RED CELL DISTRIBUTION WIDTH (test code=RDW) 16.1 % 11.6-16.2 RED CELL DISTRIBUTION WIDTH SD (test 62.0 fL 37.0-51.0 code=RDW-SD) PLATELET COUNT (test code=PLT) 154 K/mm3 150-450 MEAN PLATELET VOLUME (test code=MPV) 9.6 fL 6.7-11.0 NEUTROPHIL % (test code=NT%) 66.8 % 39.0-69.0 IMMATURE GRANULOCYTE % (test code=IG%) 0.8 % 0.0-5.0 LYMPHOCYTE % (test code=LY%) 16.8 % 25.0-55.0 MONOCYTE % (test code=MO%) 12.8 % 0.0-10.0 EOSINOPHIL % (test code=EO%) 1.4 % 0.0-5.0 BASOPHIL % (test code=BA%) 1.4 % 0.0-1.0 NUCLEATED RBC % (test code=NRBC%) 0.0 % 0-0 NEUTROPHIL # (test code=NT#) 3.29 K/mm3 1.8-7.7 IMMATURE GRANULOCYTE # (test code=IG#) 0.04 x10 3/uL 0-0.03 LYMPHOCYTE # (test code=LY#) 0.83 K/mm3 1.0-5.0 MONOCYTE # (test code=MO#) 0.63 K/mm3 0-0.8 EOSINOPHIL # (test code=EO#) 0.07 K/mm3 0.0-0.5 BASOPHIL # (test code=BA#) 0.07 K/mm3 0.0-0.2 NUCLEATED RBC # (test code=NRBC#) 0.00 K/mm3 0.0-0.1 MANUAL DIFF REQUIRED (test code=MDIFF) NO - HEPA IMAG INCL [id number] 08:18:00 FAX: Yaquelin Alva MD [phone] [place]: St: ADM FAX: Martine Diallo [phone] -- Name: MAYNOR ORDAZ [facility] : 1975 Age/S: 44/F [address] [facility] Unit #: [id number] Loc: [place] [address] Phys: Martine Power MD Acct: [id number] Dis Date: Status: ADM IN PHONE #: [phone] Exam Date: 08/25/2019 0818 FAX #: [phone] Reason: dilatedgallbladder, nl lfts EXAMS: CPT CODE: [id number] [place] [address] HISTORY: dilated gallbladder, nl lfts EXAM: NUCLEAR MEDICINE HEPATOBILIARY SCAN. TECHNIQUE: After IV injection of 5.8 mCi Tc 99m Choletec, sequential planar images were obtained over the upper abdomen out to 120 minutes. FINDINGS: Homogeneous distribution of radiopharmaceutical in the liver. No accumulation of radiopharmaceutical in the gallbladder by120 minutes. Normal accumulation of radiopharmaceutical in small bowel by 15 minutes. IMPRESSION: Nonvisualization of the gallbladder suggests obstruction of the cystic duct is seen with acute cholecystitis. No obstruction of the common bile duct. at 0818 Reported and signed by: Tommy Chauhan MD CC: Yaquelin Gr MD; Martine Power MD Technologist: KAT AVILEZ [facility] Date/Time/By: 08/25/2019 (817) : By: [email or web address] Orig Print D/T: S: 08/25/2019 (08) PAGE 1 Signed Report- US ABDOMEN [id number] 04: 41:00 Name: MAYNOR ORDAZ [facility] : 1975 Age/S: 44 / F [address] [facility] Unit # : [id number] Loc: [place] [address] Phys: Cam Becerra MD Acct: [id number] Dis Date: Status: ADM IN PHONE #: [phone] Exam Date: 08/25/2019 041 FAX #: [phone] Reason: Abd pain EXAMS: CPTCODE: [id number] US ABDOMEN [facility] [address] DICTATION LOCATION: 8 HISTORY: Female, 44 years of age with abdominal pain EXAM: ULTRASOUND OF THE RIGHT UPPER QUADRANT COMPARISON: CT abdomen and pelvis with contrast performed yesterday TECHNIQUE: Real-time grayscale 2-D imaging, Doppler spectral analysis, and Doppler color flow imaging were performed with the variable megahertz curved array transducer transabdominally. FINDINGS: PANCREAS: Head and body within normallimits. Tail obscured by bowel gas. GALLBLADDER: Several shadowing stones are seen in gallbladder lumen. No gallbladder wall thickening or pericholecystic fluid. Front End Drupal Developer reports a positive sonographic Najera sign. COMMON BILE DUCT: 2.1 mm, normal caliber. LIVER: Diffusely echogenic. No focal mass or enlargement. Portal vein is patent with appropriate hepatopedal flow. RIGHT KIDNEY: Unremarkable. OTHER: There is no ascites.IMPRESSION: 1. Cholelithiasis. 2. No biliary dilatation. 3. Fatty liver. at 0441 Reported and signed by: Trina Esquivle MD CC: Yaquelin Gr MD; Cam Becerra MD Technologist: JENNIFER TRAN RDMS Trnctb Date/Time: 08/25/2019 (0441) t.[email or web address].CLW Orig Print D/T: S: 08/25/2019 (0444) Probe: PAGE1 Signed ReportCOMPREHENSIVE METABOLIC [id number] 03:33:00 Test Item Value Reference Range Comments SODIUM (test code=NA) 138 mmol/L 136-145 POTASSIUM (test code=K) 3.3 mmol/L 3.5-5.1 CHLORIDE (test code=CL) 107.0 mmol/L 98-107 CARBON DIOXIDE (test 24.0 mmol/L 21-32 code=CO2) ANION GAP (test code=GAP) 10.3 10-20 GLUCOSE (test code=GLU) 83 mg/dL 74-106 BLOOD UREA NITROGEN (test 9 mg/dL 7-18 code=BUN) GLOMERULAR FILTRATION RATE > 60 mL/min >=60 Estimated GFR by using (test code=GFR) Modified MDRD formula.Chronic kidney disease is defined as either kidney damageor GFR <60 mL/min/1.73 m2 for >3 months. CREATININE (test code=CREAT) 0.70 mg/dL 0.55-1.02 Note change in reference range due to change in reagent. BUN/CREATININE RATIO (test 13.0 10-20 code=BUN/CREA) TOTAL PROTEIN (test 6.5 gram/dL 6.4-8.2 code=PROT) ALBUMIN (test code=ALB) 3.0 g/dL 3.4-5.0 GLOBULIN (test code=GLOB) 3.5 gram/dL 2.7-4.2 ALBUMIN/GLOBULIN RATIO (test 0.9 0.75-1.50 code=A/G) CALCIUM (test code=CA) 7.2 mg/dL 8.5-10.1 BILIRUBIN TOTAL (test 0.70 mg/dL 0.0-1.0 code=BILT) SGOT/AST (test code=AST) 83 IUnit/L 15-37 SGPT/ALT (test code=ALT) 45 IUnit/L 12-78 ALKALINE PHOSPHATASE TOTAL 81 IUnit/L 45-117 Note change in reference (test code=ALKP) range due to change in reagent. [id number] 03:33:00 Test Item Value Reference Range Comments MAGNESIUM (test code=MAG) 1.7 mg/dL 1.8-2.4 CBC W/AUTO [id number] 03:29:00 Test Item Value Reference Range Comments WHITE BLOOD CELL (test 4.7 K/mm3 4.5-12.5 code=WBC) RED BLOOD CELL (test code=RBC) 3.34 mill/mm3 3.7-5.2 HEMOGLOBIN (test code=HGB) 11.1 gram/dL 11.5-15.5 RESULT VERIFIED BY REPEAT ANALYSIS HEMATOCRIT (test code=HCT) 33.9 % 36.0-46.0 MEAN CELL VOLUME (test 101.5 fL 80-98 code=MCV) MEAN CELL HGB (test code=MCH) 33.2 picogram 27.0-33.0 MEAN CELL HGB CONCETRATION 32.7 gram/dL 33.0-36.0 (test code=MCHC) RED CELL DISTRIBUTION WIDTH 16.2 % 11.6-16.2 (test code=RDW) RED CELL DISTRIBUTION WIDTH SD 60.4 fL 37.0-51.0 (test code=RDW-SD) PLATELET COUNT (test code=PLT) 148 K/mm3 150-450 MEAN PLATELET VOLUME (test 9.9 fL 6.7-11.0 code=MPV) NEUTROPHIL % (test code=NT%) 62.2 % 39.0-69.0 IMMATURE GRANULOCYTE % (test 0.4 % 0.0-5.0 code=IG%) LYMPHOCYTE % (test code=LY%) 21.7 % 25.0-55.0 MONOCYTE % (test code=MO%) 13.1 % 0.0-10.0 EOSINOPHIL % (test code=EO%) 1.5 % 0.0-5.0 BASOPHIL % (test code=BA%) 1.1 % 0.0-1.0 NUCLEATED RBC % (test 0.0 % 0-0 code=NRBC%) NEUTROPHIL # (test code=NT#) 2.90 K/mm3 1.8-7.7 IMMATURE GRANULOCYTE # (test 0.02 x10 3/uL 0-0.03 code=IG#) LYMPHOCYTE # (test code=LY#) 1.01 K/mm3 1.0-5.0 MONOCYTE # (test code=MO#) 0.61 K/mm3 0-0.8 EOSINOPHIL # (test code=EO#) 0.07 K/mm3 0.0-0.5 BASOPHIL # (test code=BA#) 0.05 K/mm3 0.0-0.2 NUCLEATED RBC # (test 0.00 K/mm3 0.0-0.1 code=NRBC#) MANUAL DIFF REQUIRED (test NO code=MDIFF) COMPREHENSIVE METABOLIC [id number] 03:21:00 Test Item Value Reference Range Comments SODIUM (test code=NA) 138 mmol/L 136-145 POTASSIUM (test code=K) 3.3 mmol/L 3.5-5.1 CHLORIDE (test code=CL) 107.0 mmol/L 98-107 CARBON DIOXIDE (test code=CO2) mmol/L 21-32 ANION GAP (test code=GAP) 10-20 GLUCOSE (test code=GLU) mg/dL 74-106 BLOOD UREA NITROGEN (test code=BUN) mg/dL 7-18 GLOMERULAR FILTRATION RATE (test code=GFR) mL/min >=60 CREATININE (test code=CREAT) mg/dL 0.55-1.02 BUN/CREATININE RATIO (test code=BUN/CREA) 10-20 TOTAL PROTEIN (test code=PROT) gram/dL 6.4-8.2 ALBUMIN (test code=ALB) g/dL 3.4-5.0 GLOBULIN (test code=GLOB) gram/dL 2.7-4.2 ALBUMIN/GLOBULIN RATIO (test code=A/G) 0.75-1.50 CALCIUM (test code=CA) mg/dL 8.5-10.1 BILIRUBIN TOTAL (test code=BILT) mg/dL 0.0-1.0 SGOT/AST (test code=AST) IUnit/L 15-37 SGPT/ALT (test code=ALT) IUnit/L 12-78 ALKALINE PHOSPHATASE TOTAL (test code=ALKP) IUnit/L 45-117 [id number] 03:21:00 Test Item Value Reference Range Comments MAGNESIUM (test code=MAG) mg/dL 1.8-2.4 [id number] 23:27:00 Test Item Value Reference Range Comments TROPONIN-I (test code=TROPI) <0.015 ng/mL 0-0.045 COMMENTS TO PIPE OUT WORKER: COLLECT 3 HOURS AFTER PREVIOUS [id number] 19:56:00 Test Item Value Reference Range Comments TROPONIN-I (test code=TROPI) <0.015 ng/mL 0-0.045 COMMENTS TO PIPE OUT WORKER: COLLECT 3 HOURS AFTER PREVIOUS SAMPLETHYROID STIMULATING [id number] 16:41:00 Test Item Value Reference Range Comments THYROID STIMULATING HORMONE 0.738 uIU/mL 0.36-3.74 TSH REFERENCE RANGES: (test code=TSH) EUTHYROID: 0.35 - 4.3 mIU/mL HYPO : > 5.5 mIU/mL HYPER : < 0.35 mIU/mL - CT ABD PELVIS [id number] 14:33:00 Name: MAYNOR ORDAZ [facility] : 1975 Age/S: 44 / F [address] [facility] Unit #: [id number] Loc: [place] [address] Phys: Martine Power MD Acct: [id number] Dis Date: Status : REG ER PHONE #: [phone] Exam Date: 08/24/2019 1415 FAX #: [phone] Reason: vomiting EXAMS: CPTCODE: [id number] CT ABD PELVIS W/CONT 06932 HISTORY: vomiting TECHNIQUE: Immediate and delayed [address] images were obtained through the abdomen and pelvis after IV administration of 100 mL of Isovue-370 contrast. Sagittal and coronal reformatted images were generated. Automated exposure control for dose reduction. COMPARISON: None FINDINGS: Distended gallbladder. No radiopaque gallstone. No biliary dilation. Hepatomegaly with diffuse fatty infiltration. Pancreas, spleen, adrenal glands, and kidneys are unremarkable. Limited evaluation the GI tract without oral contrast. Small hiatal hernia. Stomach, small bowel, appendix, and colon are unremarkable. No free air or free fluid. No lymphadenopathy. Abdominal aorta is normal in caliber. Urinary bladder is unremarkable. Intramural 1.8 cm uterine fundus fibroid. Ovaries are grossly unremarkable. Pelvic phleboliths. No pelvic free fluid. Degenerative changes of the spine. IMPRESSION: Distended gallbladder. No radiopaque gallstones or CT evidence of acute cholecystitis. Hepatomegaly with diffuse fatty infiltration. Small hiatal hernia. at 1433 Reported and signed by: Quynh Leonard D.O. PAGE 1 Signed Report (CONTINUED) Name: MAYNOR ORDAZ [facility] : 1975 Age/S: 44 / F [address] Unit #: [id number] Loc: [place] [address] Phys: Martine Power MD Acct: [id number] Dis Date: Status: REG ER PHONE #: [phone] Exam Date: 08/24/2019 1415 FAX # : [phone]: vomiting EXAMS : CPT CODE: [id number] CT ABD PELVIS W/CONT 33918 <Continued> CC : Martine Power MD Technologist:Ольга Wisdom RT(R),CT ; CTDI: DLP: Trnscb Date/Time: 08/24/2019 (1433) [email or web address] Orig Print D/T: S: 08/24/2019 (1436) PAGE 2 Signed Report- CT CHEST W/[id number] 14:28:00 Name: MAYNOR ORDAZ [facility] : 1975 Age/S: 44 / F [address] [facility] Unit #: [id number] Loc: [place] [address] Phys: Martine Power MD Acct: [id number] Dis Date: Status : REG ER PHONE #: [phone] Exam Date: 08/24/2019 1415 FAX #: [phone] Reason: vomiting EXAMS: CPTCODE: [id number] CT CHEST W/CONTRAST [address] HISTORY: vomiting TECHNIQUE: [address] images were obtained through the chest after IV administration of 100 mL of Isovue-370 contrast. Automated exposure control for dose reduction. COMPARISON: Chest x-ray from earlier today FINDINGS: Lungs: No airspace consolidation or pleural effusion. Central airways are patent. Cardiovascular: Normal heart size. No pericardial effusion. No thoracic aortic aneurysm or dissection. Normal caliber pulmonary arteries. Mediastinum: No lymphadenopathy. Visualized thyroid is unremarkable. Normal esophagus. Small hiatal hernia. Included upper abdomen: Please refer to abdominal CT report. Bones and superficial soft tissues: Regional osseous structures are intact. IMPRESSION: No acute cardiopulmonary process. LOCATION: LP at 1428 Reported and signed by: Quynh Leonard D.O. CC: Martine Power MD Technologist:Ольга Wisdom RT(R),CT; CTDI: DLP: Trnscb Date/Time: 08/24/2019 (1428) [email or web address] Orig Print D/T: S: 08/24/2019 (3911) PAGE 1 Signed ReportBASIC METABOLIC [id number] 13:52:00 Test Item Value Reference Range Comments SODIUM (test code=NA) 137 mmol/L 136-145 POTASSIUM (test code=K) 2.8 mmol/L 3.5-5.1 Results called to [id number] by V.[email or web address].GP 08/24/19 1311Critical results verified and read back by Nurse? Y CHLORIDE (test code=CL) 100.0 mmol/L 98-107 CARBON DIOXIDE (test 23.0 mmol/L 21-32 code=CO2) ANION GAP (test code=GAP) 16.8 10-20 GLUCOSE (test code=GLU) 139 mg/dL 74-106 BLOOD UREA NITROGEN (test 13 mg/dL 7-18 code=BUN) GLOMERULAR FILTRATION RATE 54 mL/min >=60 Estimated GFR by using (test code=GFR) Modified MDRD formula.Chronic kidney disease is defined as either kidney damageor GFR <60 mL/min/1.73 m2 for >3 months. CREATININE (test code=CREAT) 1.10 mg/dL 0.55-1.02 Note change in reference range due to change in reagent. BUN/CREATININE RATIO (test 11.6 10-20 code=BUN/CREA) CALCIUM (test code=CA) 8.7 mg/dL 8.5-10.1 HEPATIC FUNCTION [id number] 13:52:00 Test Item Value Reference Range Comments TOTAL PROTEIN (test code=PROT) 8.2 gram/dL 6.4-8.2 ALBUMIN (test code=ALB) 3.8 g/dL 3.4-5.0 GLOBULIN (test code=GLOB) 4.4 gram/dL 2.7-4.2 ALBUMIN/GLOBULIN RATIO (test 0.9 0.75-1.50 code=A/G) BILIRUBIN TOTAL (test 1.50 mg/dL 0.0-1.0 code=BILT) BILIRUBIN DIRECT (test 0.47 mg/dL 0.0-0.20 code=BILD) SGOT/AST (test code=AST) 134 IUnit/L 15-37 SGPT/ALT (test code=ALT) 62 IUnit/L 12-78 ALKALINE PHOSPHATASE TOTAL 109 IUnit/L 45-117 Note change in reference (test code=ALKP) range due to change in reagent. [id number] 13:52:00 Test Item Value Reference Range Comments LIPASE (test code=LIP) 145 U/L 73.0-393.0 [id number] 13:52:00 Test Item Value Reference Range Comments MAGNESIUM (test code=MAG) 1.5 mg/dL 1.8-2.4 HCG SERUM [id number] 13:52:00 Test Item Value Reference Range Comments HCG SERUM QUAL (test NEGATIVE NEGATIVE This HCGQL test is NOT code=HCGQL) applicable for MALE patients.Check with nurse about probable order error.If Tumor Marker Test needed, nurse should order test "HCGTU"(Test #550.89491) -- [id number] 13:52:00 Test Item Value Reference Range Comments TROPONIN-I (test code=TROPI) <0.015 ng/mL 0-0.045 URINALYSIS [id number] 13:41:00 Test Item Value Reference Range Comments UA COLOR (test code=COLU) ALEN YELLOW UA APPEARANCE (test code=APPU) Cloudy CLEAR UA GLUCOSE DIPSTICK (test code=DGLUU) NEGATIVE mg/dL NEGATIVE UA BILIRUBIN DIPSTICK (test 0.5 (1+) mg/dL NEGATIVE code=BILU) UA KETONE DIPSTICK (test code=KETU) 10 (1+) mg/dL NEGATIVE UA SPECIFIC GRAVITY (test code=SGU) 1.031 1.001-1.035 UA BLOOD DIPSTICK (test code=MARTHA) 0.2 mg/dL (2+) mg/dL NEGATIVE UA PH DIPSTICK (test code=JANESSA) 6.0 5.0-8.0 UA PROTEIN DIPSTICK (test code=PROU) 100 (2+) mg/dL NEGATIVE UA UROBILINIOGEN DIPSTICK (test 3.0 (1+) mg/dL NEGATIVE code=URO) UA NITRITE DIPSTICK (test code=SANTI) NEGATIVE NEGATIVE UA LEUKOCYTE ESTERASE W REFLEX (test 500 Yahaira/uL (3+) [place]air[place]/uL NEGATIVE code=LEUUR) UA WBC (test code=WBCU) 21-50 per HPF 0-5 UA RBC (test code=RBCU) 3-5 #/HPF 0-5 UA EPITHELIAL CELLS (test code=EPIU) MANY per HPF FEW UA BACTERIA (test code=BACU) MODERATE #/HPF NONE UA HYALINE CAST (test code=HYALU) 3-5 #/LPF 0-5 UA MUCUS (test code=MUCU) MODERATE #/LPF FEW Urine Source? Clean CatchDRUGS OF ABUSE SCREEN [id number] 13:41:00 Test Item Value Reference Range Comments URN COCAINE (test NEGATIVE <300 ng/mL code=COCAURN) URN CANNABINOIDS (test POSITIVE <50 ng/mL This test provides only a code=CANNABURN) preliminary test result. A morespecific alternate chemical method must be used in order toobtain a confirmed analytical result. Gas chromatography/mass spectrometry (GC/MS) is thepreferred confirmatory method. Other chemical confirmationmethods are available. Clinical consideration and professional judgment should be applied to any drug of abusetest result, particularly when preliminary positive resultsare used.Unconfirmed screening results must not be used fornon-medical purposes (e.g., employment testing, legaltesting). URN AMPHETAMINE (test NEGATIVE <1000 ng/mL code=AMPHETURN) URN BARBITURATE (test NEGATIVE <200 ng/mL code=BARBITURN) URN BENZODIAZEPINE (test POSITIVE <200 ng/mL This test provides only a code=BENZOURN) preliminary test result. A morespecific alternate chemical method must be used in order toobtain a confirmed analytical result. Gas chromatography/mass spectrometry (GC/MS) is thepreferred confirmatory method. Other chemical confirmationmethods are available. Clinical consideration and professional judgment should be applied to any drug of abusetest result, particularly when preliminary positive resultsare used.Unconfirmed screening results must not be used fornon-medical purposes (e.g., employment testing, legaltesting). URN OPIATES (test NEGATIVE <300 ng/mL code=OPIATURN) URN PHENCYCLIDINE (PCP) NEGATIVE <25 ng/mL (test code=PHENCURN) URN METHADONE (test NEGATIVE <300 ng/mL code=METHAURN) Urine Source? Clean CatchURINALYSIS [id number] 13:20:00 Test Item Value Reference Range Comments UA COLOR (test code=COLU) ALEN YELLOW UA APPEARANCE (test code=APPU) Cloudy CLEAR UA GLUCOSE DIPSTICK (test code=DGLUU) NEGATIVE mg/dL NEGATIVE UA BILIRUBIN DIPSTICK (test 0.5 (1+) mg/dL NEGATIVE code=BILU) UA KETONE DIPSTICK (test code=KETU) 10 (1+) mg/dL NEGATIVE UA SPECIFIC GRAVITY (test code=SGU) 1.031 1.001-1.035 UA BLOOD DIPSTICK (test code=MARTHA) 0.2 mg/dL (2+) mg/dL NEGATIVE UA PH DIPSTICK (test code=JANESSA) 6.0 5.0-8.0 UA PROTEIN DIPSTICK (test code=PROU) 100 (2+) mg/dL NEGATIVE UA UROBILINIOGEN DIPSTICK (test 3.0 (1+) mg/dL NEGATIVE code=URO) UA NITRITE DIPSTICK (test code=SANTI) NEGATIVE NEGATIVE UA LEUKOCYTE ESTERASE W REFLEX (test 500 Yahaira/uL (3+) Yahaira/uL NEGATIVE code=LEUUR) UA WBC (test code=WBCU) 21-50 per HPF 0-5 UA RBC (test code=RBCU) 3-5 #/HPF 0-5 UA EPITHELIAL CELLS (test code=EPIU) MANY per HPF FEW UA BACTERIA (test code=BACU) MODERATE #/HPF NONE UA HYALINE CAST (test code=HYALU) 3-5 #/LPF 0-5 UA MUCUS (test code=MUCU) MODERATE #/LPF FEW Urine Source? Clean CatchDRUGS OF ABUSE SCREEN [id number] 13:20:00 Test Item Value Reference Range Comments URN COCAINE (test code=COCAURN) <300 ng/mL URN CANNABINOIDS (test code=CANNABURN) <50 ng/mL URN AMPHETAMINE (test code=AMPHETURN) <1000 ng/mL URN BARBITURATE (test code=BARBITURN) <200 ng/mL URN BENZODIAZEPINE (test code=BENZOURN) <200 ng/mL URN OPIATES (test code=OPIATURN) <300 ng/mL URN PHENCYCLIDINE (PCP) (test code=PHENCURN) <25 ng/mL URN METHADONE (test code=METHAURN) <300 ng/mL Urine Source? Clean CatchURINALYSIS [id number] 13:18:00 Test Item Value Reference Range Comments UA COLOR (test code=COLU) YELLOW UA APPEARANCE (test code=APPU) Cloudy CLEAR UA GLUCOSE DIPSTICK (test code=DGLUU) NEGATIVE mg/dL NEGATIVE UA BILIRUBIN DIPSTICK (test 0.5 (1+) mg/dL NEGATIVE code=BILU) UA KETONE DIPSTICK (test code=KETU) 10 (1+) mg/dL NEGATIVE UA SPECIFIC GRAVITY (test code=SGU) 1.031 1.001-1.035 UA BLOOD DIPSTICK (test code=MARTHA) 0.2 mg/dL (2+) mg/dL NEGATIVE UA PH DIPSTICK (test code=JANESSA) 6.0 5.0-8.0 UA PROTEIN DIPSTICK (test code=PROU) 100 (2+) mg/dL NEGATIVE UA UROBILINIOGEN DIPSTICK (test 3.0 (1+) mg/dL NEGATIVE code=URO) UA NITRITE DIPSTICK (test code=SANTI) NEGATIVE NEGATIVE UA LEUKOCYTE ESTERASE W REFLEX (test 500 Yahaira/uL (3+) Yahaira/uL NEGATIVE code=LEUUR) UA WBC (test code=WBCU) per HPF 0-5 UA RBC (test code=RBCU) per HPF 0-5 UA EPITHELIAL CELLS (test code=EPIU) per HPF Few UA BACTERIA (test code=BACU) per HPF NONE Urine Source? Clean CatchDRUGS OF ABUSE SCREEN [id number] 13:18:00 Test Item Value Reference Range Comments URN COCAINE (test code=COCAURN) <300 ng/mL URN CANNABINOIDS (test code=CANNABURN) <50 ng/mL URN AMPHETAMINE (test code=AMPHETURN) <1000 ng/mL URN BARBITURATE (test code=BARBITURN) <200 ng/mL URN BENZODIAZEPINE (test code=BENZOURN) <200 ng/mL URN OPIATES (test code=OPIATURN) <300 ng/mL URN PHENCYCLIDINE (PCP) (test code=PHENCURN) <25 ng/mL URN METHADONE (test code=METHAURN) <300 ng/mL Urine Source? Clean CatchBASIC METABOLIC [id number] 13:11:00 Test Item Value Reference Range Comments SODIUM (test code=NA) 137 mmol/L 136-145 POTASSIUM (test code=K) 2.8 mmol/L 3.5-5.1 Results called to [id number] by V.[email or web address] 08/24/19 1311Critical results verified and read back by Nurse? Y CHLORIDE (test code=CL) 100.0 mmol/L 98-107 CARBON DIOXIDE (test 23.0 mmol/L 21-32 code=CO2) ANION GAP (test code=GAP) 16.8 10-20 GLUCOSE (test code=GLU) 139 mg/dL 74-106 BLOOD UREA NITROGEN (test 13 mg/dL 7-18 code=BUN) GLOMERULAR FILTRATION RATE 54 mL/min >=60 Estimated GFR by using (test code=GFR) Modified MDRD formula.Chronic kidney disease is defined as either kidney damageor GFR <60 mL/min/1.73 m2 for >3 months. CREATININE (test code=CREAT) 1.10 mg/dL 0.55-1.02 Note change in reference range due to change in reagent. BUN/CREATININE RATIO (test 11.6 10-20 code=BUN/CREA) CALCIUM (test code=CA) 8.7 mg/dL 8.5-10.1 HEPATIC FUNCTION [id number] 13:11:00 Test Item Value Reference Range Comments TOTAL PROTEIN (test code=PROT) 8.2 gram/dL 6.4-8.2 ALBUMIN (test code=ALB) 3.8 g/dL 3.4-5.0 GLOBULIN (test code=GLOB) 4.4 gram/dL 2.7-4.2 ALBUMIN/GLOBULIN RATIO (test 0.9 0.75-1.50 code=A/G) BILIRUBIN TOTAL (test 1.50 mg/dL 0.0-1.0 code=BILT) BILIRUBIN DIRECT (test 0.47 mg/dL 0.0-0.20 code=BILD) SGOT/AST (test code=AST) 134 IUnit/L 15-37 SGPT/ALT (test code=ALT) 62 IUnit/L 12-78 ALKALINE PHOSPHATASE TOTAL 109 IUnit/L 45-117 Note change in reference (test code=ALKP) range due to change in reagent. [id number] 13:11:00 Test Item Value Reference Range Comments LIPASE (test code=LIP) 145 U/L 73.0-393.0 [id number] 13:11:00 Test Item Value Reference Range Comments MAGNESIUM (test code=MAG) 1.5 mg/dL 1.8-2.4 HCG SERUM [id number] 13:11:00 Test Item Value Reference Range Comments HCG SERUM QUAL (test code=HCGQL) NEGATIVE [id number] 13:11:00 Test Item Value Reference Range Comments TROPONIN-I (test code=TROPI) <0.015 ng/mL 0-0.045 PROTHROMBIN [id number] 13:10:00 Test Item Value Reference Range Comments PROTHROMBIN TIME PATIENT 11.6 seconds 9.0-14.0 (test code=PTP) INTERNATIONAL NORMAL RATIO 1.0 0.8-1.2 The therapeutic range for (test code=INR) oral anticoagulant therapy formost indications is an international normalized ratio (INR)of between 2.0 and 3.0. The recommended therapeutic INRrange for various clinical situations is listed below: Clinical Situation INR range ____ Pulmonary embolism treatment (2.0-3.0)Venous thrombosis treatmentVenous thrombosis prophylaxis (high risk surgery)Prevention of systemic embolism from: Acute myocardial infarction Valvular heart disease Atrial fibrillation Mechanical prosthetic heart valves (2.5-3.5) IS PATIENT ON ANTICOAGULANTS? NTHROMBOPLASTIN TIME [id number] 13:10:00 Test Item Value Reference Range Comments THROMBOPLASTIN TIME PARTIAL (test code=PTT) 29.0 seconds 25.0-36.5 IS PATIENT ON ANTICOAGULANTS? NCBC W/O [id number] 12:48:00 Test Item Value Reference Range Comments WHITE BLOOD CELL (test code=WBC) 6.9 K/mm3 4.5-12.5 RED BLOOD CELL (test code=RBC) 4.36 mill/mm3 3.7-5.2 HEMOGLOBIN (test code=HGB) 14.3 gram/dL 11.5-15.5 HEMATOCRIT (test code=HCT) 43.4 % 36.0-46.0 MEAN CELL VOLUME (test code=MCV) 99.5 fL 80-98 MEAN CELL HGB (test code=MCH) 32.8 picogram 27.0-33.0 MEAN CELL HGB CONCETRATION (test code=MCHC) 32.9 gram/dL 33.0-36.0 RED CELL DISTRIBUTION WIDTH (test code=RDW) 16.0 % 11.6-16.2 PLATELET COUNT (test code=PLT) 194 K/mm3 150-450 MEAN PLATELET VOLUME (test code=MPV) 10.0 fL 6.7-11.0 CBC W/O [id number] 12:47:00 Test Item Value Reference Range Comments WHITE BLOOD CELL (test code=WBC) K/mm3 4.5-12.5 RED BLOOD CELL (test code=RBC) mill/mm3 3.7-5.2 HEMOGLOBIN (test code=HGB) 14.3 gram/dL 11.5-15.5 HEMATOCRIT (test code=HCT) 43.4 % 36.0-46.0 MEAN CELL VOLUME (test code=MCV) fL 80-98 MEAN CELL HGB (test code=MCH) picogram 27.0-33.0 MEAN CELL HGB CONCETRATION (test code=MCHC) gram/dL 33.0-36.0 RED CELL DISTRIBUTION WIDTH (test code=RDW) % 11.6-16.2 PLATELET COUNT (test code=PLT) K/mm3 150-450 MEAN PLATELET VOLUME (test code=MPV) fL 6.7-11.0 - XR CHEST 1 [id number] 12:17:00 FAX: Martine Diallo [phone] [place]: St: REG Name: MAYNOR ORDAZ [facility] : 1975 Age/S: 44/F [address] [facility] Unit#: [id number] Loc: [place] [address] Phys: Martine Power MD Acct: [id number] Dis Date: Status: REG ER PHONE #: [phone] Exam Date: 08/24/2019 1200 FAX #: [phone] Reason: Abdominal Pain EXAMS: CPT CODE: [id number] XR CHEST 1 V 46484 HISTORY: Abdominal Pain TECHNIQUE: AP chest x-ray COMPARISON : None FINDINGS: No airspace consolidation or pleural effusion. Normal heart size. Mediastinal silhouette is unremarkable. Visualized osseous structures are grossly intact. IMPRESSION: No radiographic evidence of acute cardiopulmonary process. LOCATION: LP at 1217 Reported and signed by: Quynh Leonard D.O. CC: Martine Power MD Technologist: Linette Robles RT(R); GARRETT TERRAZAS RT(R) Trnscrd Date/Time/By: 08/24/2019 (7918) : By: [email or web address] Orig Print D/T: S: 08/24/2019 (4526) PAGE 1 Signed Report- XR NECK SOFT [id number] 12:16: 00 FAX: Martine Diallo [phone] [place]: St: REG-------- Name: MAYNOR ORDAZ [facility] : [birth year] Age/S: 44/F [address] [facility] Unit#: [id number] Loc: [place] [address] Phys: Martine Power MD Acct: [id number] Dis Date: Status: REG ER PHONE #: Exam Date: 08/24/2019 1200 FAX #: [phone] Reason: sensation of soething stuck in throat EXAMS: CPT CODE: [id number] XR NECK SOFT TISSUE 93982 HISTORY: sensation of something stuck in throat EXAM: AP and lateral views of the neck soft tissues. FINDINGS: No thickening of the epiglottis or aryepiglottic folds. No prevertebral soft tissue swelling. No tracheal narrowing or deviation. No radiopaque foreign body is identified. Regional osseous structures are unremarkable. IMPRESSION: Negative x-ray of the soft tissues of the neck. LOCATION: LP at 1216 Reported and signed by: Quynh Leonard D.O. CC: Martine Power MD Technologist: Linette Robles RT(R); GARRETT SOLIS(R) Trnscrd Date/Time/By: 08/24/2019 (8231) : By: [email or web address] Orig Print D/T: S: 09/2018 (3380) PAGE 1 Signed Report
[2019-10-20] MEDS ORDERED: LORazepam 2 MG/ML VIAL ONE ×2 (22:13→23:42)
[2019-10-20] MEDS ORDERED: NA CHLORIDE 0.9% 1,000 ML ONE ×2 (22:13→23:41)
[2019-10-20] MEDS ORDERED: ONDANSETRON 4 MG/2 ML VIAL ONE (22:13)
[2019-10-20 22:38] LABS: Basophils % 0.5 % (0-1.3); Hematocrit 47.4 % (36.0-45.0); Lymphocytes % 7.3 % (15.3-44.8); MPV 8.2 fL (7.6-11.3); RBC Red Blood Cell Count 4.76 M/uL (3.86-4.86)
[2019-10-20 23:08] LABS: Albumin 4.4 g/dL (3.4-5.0); Bilirubin Direct 0.2 mg/dL (0-0.2); Bilirubin Total 0.8 mg/dL (0.2-1.0); Potassium 3.4 mmol/L (3.5-5.1); Protein, Total 8.6 g/dL (6.4-8.2)
[2019-10-20 23:27] LABS: Urine Blood 2+ (NEG); Urine Glucose NEGATIVE (NEG); Urine Protein 2+ (NEG); Urine Specific Gravity >1.030 (1.005-1.030); Urine pH 5.5 (5.0-7.0)
[2019-10-20 23:29] LABS: Urine Bacteria LOADED /HPF (<20); Urine Culture Reflex Order REFLEXED
[2019-10-20 23:30] LABS: Urine RBC <5 /HPF (NONE SEEN); Urine Urothelial Cells <5 /HPF (NONE SEEN)
[2019-10-21] MEDS ORDERED: NITROFURAN MACRO 100 MG CAP PO ONE (00:04)
--- NOTE | 2019-10-21 00:27 | EDPHYS ---
Physician Documentation [facility] Name: Abby Hughes Age: 44 yrs Sex: Female : 1975 Arrival Date: 10/20/2019 Time: 21:50 Bed 24 Private MD: ED Physician Sukhwinder Cunha HPI: 10/20 22:19 This 44 yrs old Female presents to ER via Ambulatory with complaints of la1 Alcohol Withdrawal. 22:19 Pt reports that for the last two weeks she has been drinking rum daily, probably about la1 a litre. Last drink was about 24 hours ago. pt reports nausea, vomiting, tremors. Onset: The symptoms/episode began/occurred today. Severity of symptoms: At their worst the symptoms were moderate. The patient has experienced similar episodes in the past. 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 - Coronavirus screen:: The patient has NOT traveled to [place], [place], or [place] in the past 14 days. Proceed with normal triage process as indicated. - Social history:: Smoking status: Patient denies any tobacco usage or history of. Patient uses alcohol, on a daily basis. patient/guardian reports chronic longstanding heavy alcohol consumption. patient/guardian reports recent binge of alcohol consumption. - Ebola Screening: : No symptoms or risks identified at this time. ROS: 22:20 Constitutional: Negative for fever, chills, and weight loss, Eyes: Negative for injury, la1 pain, redness, and discharge, Neck: Negative for injury, pain, and swelling, Cardiovascular: Negative for chest pain, palpitations, and edema, Respiratory: Negative for shortness of breath, cough, wheezing, and pleuritic chest pain. 22:20 Back: Negative for injury and pain, : Negative for injury, bleeding, discharge, and swelling, MS/Extremity: Negative for injury and deformity, Skin: Negative for injury, rash, and discoloration, Neuro: Negative for headache, weakness, numbness, tingling, and seizure, Allergy/Immunology: Negative for hives, rash, and allergies, Endocrine: Negative for neck swelling, polydipsia, polyuria, polyphagia, and marked weight changes. 22:20 Abdomen/GI: Positive for abdominal pain, nausea and vomiting. Exam: 22:21 Constitutional: This is a well developed, well nourished patient who is awake, alert, la1 and in no acute distress. Head/Face: Normocephalic, atraumatic. Eyes: Pupils equal round and reactive to light, extra-ocular motions intact. ENT: Mucous membranes moist. Neck: Trachea midline,No Meningismus. Chest/axilla: Normal chest wall appearance and motion. Nontender with no deformity. No lesions are appreciated. Cardiovascular: tachycardic and rhythm with a normal S1 and S2. No gallops, murmurs, or rubs. Normal PMI, no JVD. No pulse deficits. Respiratory: Lungs have equal breath sounds bilaterally, clear to auscultation and percussion. Abdomen/GI: Soft, non-tender, with normal bowel sounds. Back: No spinal tenderness. No costovertebral tenderness. Full range of motion. Skin: Warm, dry with normal turgor. Normal color with no rashes, no lesions, and no evidence of cellulitis. MS/ Extremity: Pulses equal, no cyanosis. Neurovascular intact. Full, normal range of motion. Vital Signs: 22:01 BP 158 / 119; Pulse 144; Resp 16; Temp 98.4; Pulse Ox 97% on R/A; Weight 61.23 kg; aa1 Height 5 ft. 2 in. (157.48 cm); Pain 5/10; 22:30 BP 140 / 104; Pulse 115; Resp 18; Pulse Ox 100% on R/A; mg2 23:35 BP 140 / 97; Pulse 107; Resp 18; Pulse Ox 96% on R/A; mg2 10/21 00:40 BP 126 / 92; Pulse 104; Resp 18; Pulse Ox 97% on R/A; Pain 0/10; aa1 10/20 22:01 Body Mass Index 24.69 (61.23 kg, 157.48 cm) aa1 MDM: 10/20 21:56 Patient medically screened. la1 10/21 00:25 Data reviewed: vital signs, nurses notes, lab test result(s), EKG, and as a result, I la1 will discharge patient. Data interpreted: Pulse oximetry: on room air is 99 %. Interpretation: normal. Counseling: I had a detailed discussion with the patient and/or guardian regarding: the historical points, exam findings, and any diagnostic results supporting the discharge/admit diagnosis, the presence of at least one elevated blood pressure reading (>120/80) during this emergency department visit, lab results, the need for outpatient follow up, a family practitioner, to return to the emergency department if symptoms worsen or persist or if there are any questions or concerns that arise at home. Medication response: benzos. Response to treatment: the patient's symptoms have markedly improved after treatment, and as a result, I will discharge patient. 10/20 22:06 Order name: Basic Metabolic Panel; Complete Time: 23:08 nm10/20 22:06 Order name: CBC with Diff; Complete Time: 23:08 [facility] 10/20 22:06 Order name: Hepatic Function; Complete Time: 23: nm10/20 22:06 Order name: Lipase; Complete Time: 23:08 nm10/20 22:06 Order name: ETOH Level; Complete Time: 23:50 [facility] 10/20 22:25 Order name: Urine Microscopic Only; Complete Time: 23: nm10/20 22:31 Order name: Urine Dipstick--Ancillary (enter results); Complete Time: 23:50 [facility] 10/20 22:31 Order name: Urine --Ancillary (enter results); Complete Time: 23:50 [facility] 10/20 23:32 Order name: Urine Culture [facility] 10/20 22:06 Order name: IV Saline Lock; Complete Time: :26 nm10/20 22:06 Order name: Labs collected and sent; Complete Time: : nm10/20 22:22 Order name: EKG; Complete Time: 22:10/20 22:22 Order name: EKG - Nurse/Tech; Complete Time: : nm10/20 22:22 Order name: Urine Dipstick-Ancillary (obtain specimen); Complete Time: : nm10/20 22:22 Order name: Urine Test (obtain specimen); Complete Time: 22:25 la Administered Medications: 10/20 22:26 Drug: Zofran 4 mg Route: IVP; Site: right forearm; mg2 23:26 Follow up: Response: No adverse reaction mg2 22:27 Drug: NS 0.9% 1000 ml Route: IV; Rate: 1000 ml; Site: right forearm; mg2 23:26 Follow up: Response: No adverse reaction; IV Intake: 1000ml mg2 22:27 Drug: Ativan 2 mg Route: IVP; Site: right forearm; mg2 23:26 Follow up: Response: No adverse reaction; Marked relief of symptoms mg2 23:43 Drug: NS 0.9% 1000 ml Route: IV; Rate: 1000 ml; Site: right forearm; mg2 10/21 00:39 Follow up: IV Status: Completed infusion aa1 10/20 23:44 Drug: Ativan 1 mg Route: IVP; Site: right forearm; mg2 10/21 00:02 Follow up: Response: No adverse reaction mg2 00:02 Drug: Macrobid 100 mg Route: PO; mg2 00:39 Follow up: Response: No adverse reaction aa1 00:33 Drug: Valium 5 mg Route: PO; aa1 00:39 Follow up: Response: No adverse reaction; Medication administered at discharge. aa1 Disposition: 06:49 Co-signature as Attending Physician, Sukhwinder Cunha MD I agree with the assessment and tw4 plan of care. Disposition: 10/21/19 00:27 Discharged to Home. Impression: Alcohol dependence with withdrawal. - Condition is Stable. - Discharge Instructions: Alcohol Withdrawal, Alcohol Abuse and Nutrition, Alcohol Withdrawal, [id number]. - Prescriptions for Macrobid 100 mg Oral Capsule - take 1 capsule by ORAL route every 12 hours for 10 days; 20 capsule. - Medication Reconciliation Form, Thank You Letter form. - Follow up: Private Physician; When: 2 - 3 days; Reason: Recheck today's complaints, Re-evaluation by your physician. Follow up: Emergency Department; When: As needed; Reason: Worsening of condition. - Problem is new. - Symptoms have improved. Signatures: Dispatcher [employer] EDMS Giuliana Almanza RN RN aa1 Joseph Gooden, BACK TENDER CYLINDER-C BACK TENDER CYLINDER-Cla1 Sukhwinder Cunha MD MD tw4 Sarwat Paiz RN RN mg2 Corrections: (The following items were deleted from the chart) 00:41 00:27 10/21/2019 00:27 Discharged to Home. Impression: Alcohol dependence with aa1 withdrawal. Condition is Stable. Forms are Medication Reconciliation Form, Thank You Letter, Antibiotic Education, Prescription Opioid Use. Follow up: Private Physician; When: 2 - 3 days; Reason: Recheck today's complaints, Re-evaluation by your physician. Follow up: Emergency Department; When: As needed; Reason: Worsening of condition. Problem is new. Symptoms have improved. la1
--- NOTE | 2019-10-21 00:27 | ER ---
Nurse's Notes [facility] Name: Abby Hughes Age: 44 yrs Sex: Female : 1975 Arrival Date: 10/20/2019 Time: 21:50 Bed 24 Private MD: Diagnosis: Alcohol dependence with withdrawal Presentation: 10/20 21:59 Presenting complaint: Patient states: ETOH withdrawal symptoms since this am. Reports aa1 she has been drinking approx 1 liter or more of rum daily x 4 months and last drink was last night. Reports this has happened before in the past and she was given fluids and ativan and zofran and was discharged. Transition of care: patient was not received from another setting of care. Onset of symptoms was October 20, 2019. Risk Assessment: Do you want to hurt yourself or someone else? Patient reports no desire to harm self or others. Initial Sepsis Screen: Does the patient meet any 2 criteria? HR > 90 bpm. Does the patient have a suspected source of infection? No. Patient's initial sepsis screen is negative. Care prior to arrival: None. 21:59 Method Of Arrival: Ambulatory aa1 21:59 Acuity: LIZZIE 2 aa1 Triage Assessment: 22:01 General: Appears in no apparent distress. comfortable, Behavior is calm, cooperative, aa1 appropriate for age. VETERINARY RADIOLOGIST: 22:01 LMP 10/14/2019 aa1 Historical: - Allergies: 22:01 No Known Allergies; aa1 - Home Meds: 22:01 None [Active]; aa1 - PMHx: 22:01 Gall Stones; GERD; Hernia; Hypertension; Migraines; Alcoholism; aa1 - PSHx: 22:01 ; Tubal ligation; Cholecystectomy; aa1 - Immunization history:: Flu vaccine is not up to date. - Coronavirus screen:: The patient has NOT traveled to [place], [place], or [place] in the past 14 days. Proceed with normal triage process as indicated. - Social history:: Smoking status: Patient denies any tobacco usage or history of. Patient uses alcohol, on a daily basis. patient/guardian reports chronic longstanding heavy alcohol consumption. patient/guardian reports recent binge of alcohol consumption. - Ebola Screening: : No symptoms or risks identified at this time. Screenin:29 Abuse screen: Denies threats or abuse. Denies injuries from another. Nutritional mg2 screening: No deficits noted. Tuberculosis screening: No symptoms or risk factors identified. Fall Risk IV access (20 points). Assessment: 22:28 General: Appears in no apparent distress. comfortable, Behavior is cooperative. Pain: mg2 Complains of pain in abdomen. Neuro: Level of Consciousness is awake, alert, obeys commands, Oriented to person, place, time, situation. Cardiovascular: Capillary refill < 3 seconds Patient's skin is warm and dry. Respiratory: Airway is patent Respiratory effort is even, unlabored, Respiratory pattern is regular, symmetrical. GI: Reports nausea, vomiting. : Reports burning with urination. EENT: No signs and/or symptoms were reported regarding the EENT system. Derm: Skin is intact, is healthy with good turgor, Skin is pink, warm \T\ dry. normal. Musculoskeletal: Circulation, motion, and sensation intact. Capillary refill < 3 seconds. 23:12 Reassessment: Patient appears in no apparent distress at this time. Patient and/or mg2 family updated on plan of care and expected duration. Pain level reassessed. Patient is alert, oriented x 3, equal unlabored respirations, skin warm/dry/pink. Patient states feeling better. Patient states symptoms have improved. 10/21 00:40 Reassessment: Patient appears in no apparent distress at this time. Patient is alert, aa1 oriented x 3, equal unlabored respirations, skin warm/dry/pink. Discussed d/c \T\ f/u instructions with pt; denies questions or concerns at this time. Ambulatory to lobby with steady gait. Patient denies pain at this time. Patient states feeling better. Vital Signs: 10/20 22:01 BP 158 / 119; Pulse 144; Resp 16; Temp 98.4; Pulse Ox 97% on R/A; Weight 61.23 kg; aa1 Height 5 ft. 2 in. (157.48 cm); Pain 5/10; 22:30 BP 140 / 104; Pulse 115; Resp 18; Pulse Ox 100% on R/A; mg2 23:35 BP 140 / 97; Pulse 107; Resp 18; Pulse Ox 96% on R/A; mg2 10/21 00:40 BP 126 / 92; Pulse 104; Resp 18; Pulse Ox 97% on R/A; Pain 0/10; aa1 10/20 22:01 Body Mass Index 24.69 (61.23 kg, 157.48 cm) aa1 ED Course: 10/20 21:50 Patient arrived in ED. cf2 21:56 Joseph Good[facility]-C [facility] la1 21:56 Sukhwinder Cunha MD is Attending Physician. la1 22:00 Sarwat Paiz, TANYA is Primary Nurse. mg2 22: Triage completed. aa1 22:01 Arm band placed on right wrist. aa1 22:25 Inserted saline lock: 20 gauge in right forearm, using aseptic technique. Blood mg2 collected. 22:30 Patient has correct armband on for positive identification. Pulse ox on. NIBP on. mg2 22:30 No provider procedures requiring assistance completed. mg2 10/21 00:40 IV discontinued, intact, bleeding controlled, No redness/swelling at site. Pressure aa1 dressing applied. Administered Medications: 10/20 22:26 Drug: Zofran 4 mg Route: IVP; Site: right forearm; mg2 23:26 Follow up: Response: No adverse reaction mg2 22:27 Drug: NS 0.9% 1000 ml Route: IV; Rate: 1000 ml; Site: right forearm; mg2 23:26 Follow up: Response: No adverse reaction; IV Intake: 1000ml mg2 22:27 Drug: Ativan 2 mg Route: IVP; Site: right forearm; mg2 23:26 Follow up: Response: No adverse reaction; Marked relief of symptoms mg2 23:43 Drug: NS 0.9% 1000 ml Route: IV; Rate: 1000 ml; Site: right forearm; mg2 10/21 00:39 Follow up: IV Status: Completed infusion aa1 10/20 23:44 Drug: Ativan 1 mg Route: IVP; Site: right forearm; mg2 10/21 00:02 Follow up: Response: No adverse reaction mg2 00:02 Drug: Macrobid 100 mg Route: PO; mg2 00:39 Follow up: Response: No adverse reaction aa1 00:33 Drug: Valium 5 mg Route: PO; aa1 00:39 Follow up: Response: No adverse reaction; Medication administered at discharge. aa1 Intake: 10/20 23:26 IV: 1000ml; Total: 1000ml. mg2 Outcome: 10/21 00:27 Discharge ordered by . la1 00:40 Discharged to home ambulatory, with friend. aa1 00:40 Condition: good 00:40 Discharge instructions given to patient, Instructed on discharge instructions, follow up and referral plans. medication usage, Demonstrated understanding of instructions, follow-up care, medications, Prescriptions given X 1. 00:41 Patient left the ED. aa1 Addendum: 10/23/2019 16:23 Addendum: Culture Results: Positive urine culture. Bacteria is resistant to, has s s intermediate sensitivity, or is not tested against prescribed antibiotics. Report given to JORGITO for further evaluation and then to terminal make up operator for follow up with patient. Phone call Attempt #1 Recommendation to stop taking Macrobid 100 mg and to start Bactrim DS 1 tab PO BID x 10 days #20. Attempted to call patient. No answer. VM full. Signatures: Giuliana Almanza RN RN aa1 Chasity Martin RN RN ss Joseph Gooden, LOCKS TENDER-C LOCKS TENDER-Cla1 Sarwat Paiz RN RN [facility] [place]so Leroy2
[2019-10-21] MEDS ORDERED: DIAZEPAM 5 MG TABLET ONE (00:36)
[2019-10-21 01:03] VITALS: TEMP 98.4
[2019-10-21 01:07] VITALS: BP 126/92; O2SAT 97
--- NOTE | 2019-10-21 15:56 | EKG ---
Test Date: 2019-10-20 Test Time: 22:31:35 Events And Promotions Assistant: HENRY MEASUREMENT RESULTS: Intervals: Rate: 115 AL: 142 QRSD: 70 QT: 348 QTc: 481 [place]: P: 56 AL: 142 QRS: 37 T: 71 INTERPRETIVE STATEMENTS: Sinus tachycardia Nonspecific ST and T wave abnormality Abnormal ECG Compared to ECG 02/11/2019 23:47:15 ST (T wave) deviation now present Sinus rhythm no longer present Electronically Signed On 10-21-19 15:52:12 SYSTEMS MGR by Rickey Lindsay
== END 2019-10-21 00:41 | disposition home or self-care (01) ==
LOC: ER 21:48
DX: F10.239 Alcohol dependence with withdrawal, unspecified (principal)
CPT/HCPCS: 36415; 80048; 80076; 80320; 81003; 81015; 81025; 83690; 85025; 87077; 87086; 87088; 87186; 93005; 96361; 96374; 96375; 99284; J2405; J7030

== ENCOUNTER 2019-12-01 12:12 | Inpatient (IN) | payer SELFPAY ==
--- OUTSIDE RECORDS SUMMARY | 2019-12-01 12:15 | XMS REPORT ---
:[address] [facility] [address] [place] [address] Care Team Providers Name Role Phone Unavailable Unavailable Unavailable Payers Payer Name Policy Type Policy Number Effective Date Expiration Date Problems This patient has no known problems. Allergies, Adverse Reactions, Alerts Allergy Name Allergy Status Severity Reaction(s) Onset Inactive Treating Comments Type Date Date Clinician codeine DA Active IA 2018-09 00:00: 00 acetaminophen DA Active IA 2018-09 00:00: 00 morphine DA Active 2018-09 00:00: 00 No Known DA Active U Allergies 11-29 00:00: 00 Medications This patient has no known medications. Results Test Description Test Time Test Comments Text Results Atomic Results Result Comments GASTRIC,BIOPSY 2019-08-29 RUN 16:51:00 DATE: 08/29/19 [place] - [facility] PAGE 1 RUN TIME: 1651 Specimen Inquiry RUN USER: INTERFACE DENISHA ENT: MAYNOR ORDAZ LOC: JUAN U #: [id number] AGE/SX: 44/F ROOM: [facility] RE08/24/19REG DR: Joyce Schrader MD : 77 BED: A DIS: 08/28/19 STATUS: DIS IN TLOC: SPEC #: [id number] RECD: 08/28/19 STATUS: MIKE REQ #: [id number] JEROME: 08/27/[address] [facility] [address]: Clifton Swanson MD ENTERED: 08/28/19 SP TYPE: GASTRIC BX OTHR DR: Jerry Fisher MD, Fernando E MD Qureshi, Salah Uddin MDORDERED: GROSS COPIES TO: Clifton Swanson MD [address] [place] [address] Jerry Fisher MD [address] [place] [id number] Cam Becerra MD [address] [place] [address] [email or web address] Susana Noe MD [address] [facility] [address] [place] [address] PROCEDURES: GROSS (08/29/19- 5381) TISSUES: 1. GASTRIC CORPUS - BX 2. ESOPHAGUS, NOS - RANDOM BX CLINICAL HISTORY COLLECTION DATE: 08/27/19 DYSPHAGIA FINAL DIAGNOSIS Stomach, biopsy: GASTRIC MUCOSA WITH MINIMAL CHRONIC INFLAMMATION NO DIAGNOSTIC HELICOBACTER IDENTIFIED (GIEMSA STAIN) NO ULCERATION, INTESTINAL METAPLASIA, DYSPLASIA OR MALIGNANCY IDENTIFIED CONTINUED ON NEXT PAGE RUN DATE: 08/29/19 [facility] - [facility] PAGE 2 RUN TIME: 1651 Specimen Inquiry RUN USER: INTERFACE SPEC #: [id number] PATIENT: MAYNOR ORDAZ # [id number] (Continued) ------- FINAL DIAGNOSIS (Continued) Esophagus, random biopsies: GASTROESOPHAGEAL MUCOSA WITH MINIMAL FOCAL CHRONIC INFLAMMATION NEGATIVE FOR INTESTINAL METAPLASIA, DYSPLASIA OR MALIGNANCY / D [id number], 30679 MACROSCOPIC The first specimen is received in [...] entirely submitted as (2). GROSS PERFORMED AT [facility] [address] [place] [address] (Y) MICROSCOPIC All of the stains, including any controls performed, stain appropriately. MICROSCOPIC PERFORMED AT [facility] [address] [place] [address] [phone])[phone] PERFORMING SITE Diagnosis performed at: [facility] [address] [place], [place] [id number] CONTINUED ON NEXT PAGE RUN DATE: 08/29/19 [facility] PAGE 3 RUN TIME: 1651 Specimen Inquiry RUN USER: INTERFACE SPEC #: [id number] PATIENT: MAYNOR ORDAZ # [id number] (Continued) ------- Signed SIGNATURE ON FILE Asif Yang MD 1651 END OF REPORT [facility] 2019-08-28 RUN 17:40:00 DATE: 08/28/19 [facility] PAGE 1 RUN TIME: 1741 Specimen Inquiry RUN USER: INTERFACE DENISHA ENT: MAYNOR ORDAZ LOC: JUAN U #: [id number] AGE/SX: 44/F ROOM: [facility] RE08/24/19REG DR: Joyce Schrader MD : 77 BED: A DIS: 08/28/19 STATUS: DIS IN TLOC: SPEC #: [id number] RECD: 08/26/19 STATUS: MIKE CHAMBERLAIN #: [id number] JEROME: 08/26/[address] [facility] [address]: Cam Becerra MD ENTERED: 08/26/19 SP TYPE: GALLBLADD OTHR DR: Jerry Fisher MD, Fernando E MD Qureshi, Salah Uddin MDORDERED: GROSS COPIES TO: Jerry Fisher MD [address] [place] [address] Cam Becerra MD [address] [place], [place] [address] [email or web address] Susana Noe MD [address] [facility] [address] [place] [address] MARKERS : ABNORMAL TISSUE, GALLBLADDER PROCEDURES: GROSS (08/28/19-1322) TISSUES: GALLBLADDER, NOS CLINICAL HISTORY COLLECTION DATE: 08/26/2019 CHOLECYSTITIS FINAL DIAGNOSIS Gallbladder, cholecystectomy: CHRONIC CHOLECYSTITIS CHOLELITHIASIS NEGATIVE FOR MALIGNANCY RRB/selina Joy * * CONTINUED ON NEXT PAGE RUN DATE: 08/28/19 [facility] PAGE 2 RUN TIME: 1741 Specimen Inquiry RUN USER: INTERFACE SPEC #: [id number] PATIENT: MAYNOR ORDAZ # [id number] (Continued) ------- FINAL DIAGNOSIS (Continued) [address] MACROSCOPIC The specimen is received in formalin, [...] 0.2 cm. No focal lesions are identified. Field Scout tissue is submitted in a single cassette. GROSS PERFORMED AT [facility] [address] [place] [address] [phone])[phone] MICROSCOPIC All of the stains, including any controls performed, stain appropriately. MICROSCOPIC PERFORMED AT [facility] [address] [place] [address] (p)[phone] PERFORMING SITE Diagnosis performed at: [facility], [place] [address] [place] [address] -------- Signed SIGNATURE ON FILE Baldo Marrufo MD 08/28/19 1740 END OF REPORT - XR SWLW [facility] 2019-08-28 FAX: [facility] [place]: B St: ADM FAX: W/C V 14:33:00 Diana Campo [phone] ------ Name: MAYNOR ORDAZ [facility] : 1975 Age/S: 44/F [address] [facility] Unit #: [id number] Loc: V.[address] [place] [address] Phys: Diana Campo Acct: [id number] Dis Date: Status: ADM IN PHONE #: [phone] Exam Date: 08/28/2019 1153 FAX #: [phone] Reason: DIFFICULT IN SWALLOW EXAMS: CPT CODE: [id number] XR [facility] W/C V 24506 CLINICAL HISTORY: DIFFICULT IN SWALLOW TECHNIQUE : [...] Technologist: FREDY CARDONA RT(R) Trnscrd Date/Time/By: 08/28/2019 (7335) : By: [email or web address] Orig Print D/T : S: 08/28/2019 (4038) PAGE 1 Signed Report BASIC METABOLIC PANEL [...] (test code=CA) 9.2 mg/dL 8.5-10.1 BASIC METABOLIC [id number] 13:09:00 Test Item Value Reference Range Comments [...] CALCIUM (test code=CA) mg/dL 8.5-10.1 CBC W/AUTO [id number] 12:54:00 Test Item Value Reference Range Comments [...] DIFF REQUIRED (test NO code=MDIFF) HEPATIC FUNCTION [id number] 08:22:00 Test Item Value Reference Range Comments [...] due to change in reagent. CBC W/AUTO [id number] 07:23:00 Test Item Value Reference Range Comments [...] (test code=NRBC#) 0.00 K/mm3 0.0-0.1 BASIC METABOLIC [id number] 07:47:00 Test Item Value Reference Range Comments [...] code=BUN/CREA) CALCIUM (test code=CA) 8.1 mg/dL 8.5-10.1 [id number] 07:47:00 Test Item Value Reference Range Comments MAGNESIUM (test code=MAG) 1.8 mg/dL 1.8-2.4 CBC W/AUTO [id number] 07:24:00 Test Item Value Reference Range Comments [...] (test code=MDIFF) NO - HEPA IMAG INCL [id number] 08:18:00 FAX: Yaquelin Alva MD [place]: St: ADM FAX: Martine Diallo [phone] -- Name: MAYNOR ORDAZ [facility] : 1975 Age/S: 44/F [address] [facility] Unit #: [id number] Loc: [place] [address] Phys: Martine Power MD Acct: [id number] Dis Date: Status: ADM IN PHONE #: [phone] Exam Date: 08/25/2019 0818 FAX #: Reason: dilatedgallbladder, nl lfts EXAMS: CPT CODE: [id number] [place] [address] HISTORY: dilated gallbladder, nl lfts EXAM: NUCLEAR [...] MD; Martine Power MD Technologist: [facility] Date/Time/By: 08/25/2019 (817) : By: [email or web address] Orig Print D/T: S: 08/25/2019 (08) PAGE 1 Signed Report- US ABDOMEN [id number] 04: 41:00 Name: MAYNOR ORDAZ [facility] : 1975 Age/S: 44 / F [address] [facility] Unit # : [id number] Loc: [place] [address] Phys: Cam Becerra MD Acct: [id number] Dis Date: Status: ADM IN PHONE #: [phone] Exam Date: 08/25/2019 041 FAX #: [phone] Reason: Abd pain EXAMS: CPTCODE: [id number] US ABDOMEN [facility] [address] DICTATION LOCATION: 8 HISTORY: Female, 44 years [...] No gallbladder wall thickening or pericholecystic fluid. [employer] Agent [employer] reports a positive sonographic Najera sign. COMMON BILE DUCT: 2.1 mm, normal caliber. LIVER: Diffusely echogenic. No focal mass or enlargement. Portal vein is patent with appropriate hepatopedal flow. RIGHT KIDNEY: Unremarkable. OTHER: There is no ascites.IMPRESSION: 1. Cholelithiasis. 2. No biliary dilatation. 3. Fatty liver. at 0441 Reported and signed by: Trina Esquivel MD CC: Yaquelin Gr MD; Cam Becerra MD Technologist: JENNIFER TRAN RDMS Trnkyb Date/Time: 08/25/2019 (0441) t.MEG.CLW Orig Print D/T: S: 08/25/2019 (0444) Probe: PAGE1 Signed ReportCOMPREHENSIVE METABOLIC [id number] 03:33:00 Test Item Value Reference Range Comments [...] code=ALKP) range due to change in reagent. [id number] 03:33:00 Test Item Value Reference Range Comments MAGNESIUM (test code=MAG) 1.7 mg/dL 1.8-2.4 CBC W/AUTO [id number] 03:29:00 Test Item Value Reference Range Comments [...] DIFF REQUIRED (test NO code=MDIFF) COMPREHENSIVE METABOLIC [id number] 03:21:00 Test Item Value Reference Range Comments [...] ALKALINE PHOSPHATASE TOTAL (test code=ALKP) IUnit/L 45-117 [id number] 03:21:00 Test Item Value Reference Range Comments MAGNESIUM (test code=MAG) mg/dL 1.8-2.4 [id number] 23:27:00 Test Item Value Reference Range Comments TROPONIN-I (test code=TROPI) <0.015 ng/mL 0-0.045 COMMENTS TO JAVA FRONT END WEB DEVELOPER: COLLECT 3 HOURS AFTER PREVIOUS [id number] 19:56:00 Test Item Value Reference Range Comments TROPONIN-I (test code=TROPI) <0.015 ng/mL 0-0.045 COMMENTS TO JAVA FRONT END WEB DEVELOPER: COLLECT 3 HOURS AFTER PREVIOUS SAMPLETHYROID STIMULATING [id number] 16:41:00 Test Item Value Reference Range Comments THYROID STIMULATING HORMONE 0.738 uIU/mL 0.36-3.74 TSH REFERENCE RANGES: (test code=TSH) EUTHYROID: 0.35 - 4.3 mIU/mL HYPO : > 5.5 mIU/mL HYPER : < 0.35 mIU/mL - CT ABD PELVIS [id number] 14:33:00 Name: MAYNOR ORDAZ [facility] : 1975 Age/S: 44 / F [address] [facility] Unit #: [id number] Loc: [place] [address] Phys: Martine Power MD Acct: [id number] Dis Date: Status : REG ER PHONE #: [phone] Exam Date: 08/24/2019 1415 FAX #: [phone] Reason: vomiting EXAMS: CPTCODE: [id number] CT ABD PELVIS W/CONT 04379 HISTORY: vomiting TECHNIQUE: Immediate and delayed 5 [...] 1 Signed Report (CONTINUED) Name: MAYNOR ORDAZ [facility] : 1975 Age/S: 44 / F [address] Unit #: [id number] Loc: [place] [address] Phys: Martine Power MD Acct: [id number] Dis Date: Status: REG ER PHONE #: [phone] Exam Date: 08/24/2019 1415 FAX # : [phone]: vomiting EXAMS : CPT CODE: [id number] CT ABD PELVIS W/CONT [address]2516 <Continued> CC : Martine Power MD Technologist:Ольга Wisdom RT(R),CT ; CTDI: DLP: Trnscb Date/Time: 08/24/2019 (1433) t.SDR.[email or web address] Orig Print D/T: S: 08/24/2019 (1436) PAGE 2 Signed Report- CT CHEST W/[id number] 14:28:00 Name: MAYNOR ORDAZ [facility] : 1975 Age/S: 44 / F [address] [facility] Unit #: [id number] Loc: [place] [address] Phys: Martine Power MD Acct: [id number] Dis Date: Status : REG ER PHONE #: [phone] Exam Date: 08/24/2019 1415 FAX #: [phone] Reason: vomiting EXAMS: CPTCODE: [id number] CT CHEST W/CONTRAST 10025 HISTORY: vomiting TECHNIQUE: [address] [...] (1428) t.LDP1 Orig Print D/T: S: 08/24/2019 (6774) PAGE 1 Signed ReportBASIC METABOLIC [id number] 13:52:00 Test Item Value Reference Range Comments SODIUM (test code=NA) 137 mmol/L 136-145 POTASSIUM (test code=K) 2.8 mmol/L 3.5-5.1 Results called to [id number] by V.LAB.GP 08/24/19 1311Critical results verified and [...] (test code=CA) 8.7 mg/dL 8.5-10.1 HEPATIC FUNCTION [id number] 13:52:00 Test Item Value Reference Range Comments [...] code=ALKP) range due to change in reagent. [id number] 13:52:00 Test Item Value Reference Range Comments LIPASE (test code=LIP) 145 U/L 73.0-393.0 [id number] 13:52:00 Test Item Value Reference Range Comments MAGNESIUM (test code=MAG) 1.5 mg/dL 1.8-2.4 HCG SERUM [id number] 13:52:00 Test Item Value Reference Range Comments HCG SERUM QUAL (test NEGATIVE NEGATIVE This HCGQL test is NOT code=HCGQL) applicable for MALE patients.Check with nurse about probable order error.If Tumor Marker Test needed, nurse should order test "HCGTU"(Test #550.43118) -- [id number] 13:52:00 Test Item Value Reference Range Comments TROPONIN-I (test code=TROPI) <0.015 ng/mL 0-0.045 URINALYSIS [id number] 13:41:00 Test Item Value Reference Range Comments [...] Urine Source? Clean CatchDRUGS OF ABUSE SCREEN [id number] 13:41:00 Test Item Value Reference Range Comments [...] <300 ng/mL code=METHAURN) Urine Source? Clean CatchURINALYSIS [id number] 13:20:00 Test Item Value Reference Range Comments UA COLOR (test code=COLU) ALEN YELLOW UA APPEARANCE (test code=APPU) Cloudy CLEAR UA GLUCOSE DIPSTICK (test code=DGLUU) NEGATIVE mg/dL NEGATIVE UA BILIRUBIN DIPSTICK (test 0.5 (1+) mg/dL NEGATIVE code=BILU) UA KETONE DIPSTICK (test code=KETU) 10 (1+) mg/dL NEGATIVE UA SPECIFIC GRAVITY (test code=SGU) 1.031 1.001-1.035 UA BLOOD DIPSTICK (test code=MARTAH) 0.2 mg/dL (2+) mg/dL NEGATIVE UA PH [...] Urine Source? Clean CatchDRUGS OF ABUSE SCREEN [id number] 13:20:00 Test Item Value Reference Range Comments URN COCAINE (test code=COCAURN) <300 ng/mL URN CANNABINOIDS (test code=CANNABURN) <50 ng/mL URN AMPHETAMINE (test code=AMPHETURN) <1000 ng/mL URN BARBITURATE (test code=BARBITURN) <200 ng/mL URN BENZODIAZEPINE (test code=BENZOURN) <200 ng/mL URN OPIATES (test code=OPIATURN) <300 ng/mL URN PHENCYCLIDINE (PCP) (test code=PHENCURN) <25 ng/mL URN METHADONE (test code=METHAURN) <300 ng/mL Urine Source? Clean CatchURINALYSIS [id number] 13:18:00 Test Item Value Reference Range Comments [...] Urine Source? Clean CatchDRUGS OF ABUSE SCREEN [id number] 13:18:00 Test Item Value Reference Range Comments URN COCAINE (test code=COCAURN) <300 ng/mL URN CANNABINOIDS (test code=CANNABURN) <50 ng/mL URN AMPHETAMINE (test code=AMPHETURN) <1000 ng/mL URN BARBITURATE (test code=BARBITURN) <200 ng/mL URN BENZODIAZEPINE (test code=BENZOURN) <200 ng/mL URN OPIATES (test code=OPIATURN) <300 ng/mL URN PHENCYCLIDINE (PCP) (test code=PHENCURN) <25 ng/mL URN METHADONE (test code=METHAURN) <300 ng/mL Urine Source? Clean CatchBASIC METABOLIC [id number] 13:11:00 Test Item Value Reference Range Comments SODIUM (test code=NA) 137 mmol/L 136-145 POTASSIUM (test code=K) 2.8 mmol/L 3.5-5.1 Results called to GAO1207 by V.LABAgustínGP 08/24/19 1311Critical results verified and [...] (test code=CA) 8.7 mg/dL 8.5-10.1 HEPATIC FUNCTION [id number] 13:11:00 Test Item Value Reference Range Comments [...] code=ALKP) range due to change in reagent. [id number] 13:11:00 Test Item Value Reference Range Comments LIPASE (test code=LIP) 145 U/L 73.0-393.0 [id number] 13:11:00 Test Item Value Reference Range Comments MAGNESIUM (test code=MAG) 1.5 mg/dL 1.8-2.4 HCG SERUM [id number] 13:11:00 Test Item Value Reference Range Comments HCG SERUM QUAL (test code=HCGQL) NEGATIVE [id number] 13:11:00 Test Item Value Reference Range Comments TROPONIN-I (test code=TROPI) <0.015 ng/mL 0-0.045 PROTHROMBIN [id number] 13:10:00 Test Item Value Reference Range Comments [...] (2.5-3.5) IS PATIENT ON ANTICOAGULANTS? NTHROMBOPLASTIN TIME [id number] 13:10:00 Test Item Value Reference Range Comments THROMBOPLASTIN TIME PARTIAL (test code=PTT) 29.0 seconds 25.0-36.5 IS PATIENT ON ANTICOAGULANTS? NCBC W/O [id number] 12:48:00 Test Item Value Reference Range Comments [...] (test code=MPV) 10.0 fL 6.7-11.0 CBC W/O [id number] 12:47:00 Test Item Value Reference Range Comments [...] code=MPV) fL 6.7-11.0 - XR CHEST 1 [id number] 12:17:00 FAX: Martine Diallo [phone] [place]: St: REG Name: MAYNOR ORDAZ [facility] : 1975 Age/S: 44/F [address] [facility] Unit#: [id number] Loc: [place] [address] Phys: Martine Power MD Acct: [id number] Dis Date: Status: REG ER PHONE #: [phone] Exam Date: 08/24/2019 1200 FAX #: [phone] Reason: Abdominal Pain EXAMS: CPT CODE: [id number] XR CHEST 1 V 91929 HISTORY: Abdominal Pain TECHNIQUE: AP chest x-ray COMPARISON : None FINDINGS: No airspace consolidation or pleural effusion. Normal heart size. Mediastinal silhouette is unremarkable. Visualized osseous structures are grossly intact. IMPRESSION: No radiographic evidence of acute cardiopulmonary process. LOCATION: LP at 1217 Reported and signed by: Quynh Leonard D.O. CC: Martine Power MD Technologist: Linette Robles RT(R); GARRETT TERRAZAS RT(R) Trnscrd Date/Time/By: 08/24/2019 (8931) : By: [email or web address] Orig Print D/T: S: 08/24/2019 (5444) PAGE 1 Signed Report- XR NECK SOFT [id number] 12:16: 00 FAX: Martnie Diallo [phone] [place]: St: REG-------- Name: MAYNOR ORDAZ [facility] : [birth year] Age/S: 44/F [address] [facility] Unit#: [id number] Loc: [place] [address] Phys: Martine Power MD Acct: [id number] Dis Date: Status: REG ER PHONE #: Exam Date: 08/24/2019 1200 FAX #: [phone] Reason: sensation of soething stuck in throat EXAMS: CPT CODE: [id number] XR NECK SOFT TISSUE 51482 HISTORY: sensation of something stuck in throat [...] Robles RT(R); GARRETT SOLIS(R) Trnscrd Date/Time/By: 08/24/2019 (7753) : By: [email or web address] Orig Print D/T: S: 09/2018 (5945) PAGE 1 Signed Report
[2019-12-01] MEDS ORDERED: THIAMINE 200 MG/2 ML INJ ONE (13:02)
[2019-12-01] MEDS ORDERED: MULTIVITAMINS 10 ML VIAL (INJ) IV ONE (13:03)
[2019-12-01] MEDS ORDERED: DIAZEPAM 10 MG/2 ML INJ SYRINGE ONE ×3 (13:03→15:48)
[2019-12-01] MEDS ORDERED: NA CHLORIDE 0.9% 2,000 ML ONE (13:03)
[2019-12-01] MEDS ORDERED: ONDANSETRON 4 MG/2 ML VIAL ONE (13:15)
[2019-12-01 13:36] LABS: Absolute Lymphocytes (CBC) 0.9 K/uL (0.7-4.9); Basophils % 0.9 % (0-1.3); Hematocrit 44.6 % (36.0-45.0); Lymphocytes % 10.9 % (15.3-44.8); MPV 8.7 fL (7.6-11.3); RBC Red Blood Cell Count 4.79 M/uL (3.86-4.86)
[2019-12-01 13:42] LABS: Albumin 4.1 g/dL (3.4-5.0); Bilirubin Direct 0.2 mg/dL (0-0.2); Bilirubin Total 0.8 mg/dL (0.2-1.0); Magnesium 1.6 mg/dL (1.8-2.4); Potassium 3.6 mmol/L (3.5-5.1); Protein, Total 8.4 g/dL (6.4-8.2)
--- NOTE | 2019-12-01 14:51 | EDPHYS ---
Physician Documentation [facility] Name: Abby Hughes Age: 44 yrs Sex: Female : 1975 Arrival Date: 12/01/2019 Time: 12:15 Bed 19 Private MD: ED Physician Cortes Cortes HPI: 11/30 13:25 This 44 yrs old Female presents to ER via Ambulatory with complaints of rn Alcohol Withdrawal. 13:25 Reports recently started back drinking heavily, drinking entire large bottle of captain lazarus manuel daily, last drink last night, reports similar symptoms to her previous ETOH withdrawal with shaking, nausea, diarrhea, fatigue. . Onset: The symptoms/episode began/occurred today. Severity of symptoms: At their worst the symptoms were moderate in the emergency department the symptoms are unchanged. The patient has not experienced similar symptoms in the past. The patient has not recently seen a physician. 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 - Social history:: Smoking status: Patient denies any tobacco usage or history of. - Family history:: not pertinent. - Hospitalizations: : No recent hospitalization is reported. ROS: 13:25 Constitutional: Negative for fever, chills, and weight loss, Eyes: Negative for injury, rn pain, redness, and discharge, Neck: Negative for injury, pain, and swelling, Cardiovascular: Negative for chest pain, and edema, Respiratory: Negative for shortness of breath, cough, wheezing, and pleuritic chest pain, Abdomen/GI: Negative for abdominal pain, diarrhea, and constipation, MS/Extremity: Negative for injury and deformity, Skin: Negative for injury, rash, and discoloration, Neuro: Negative for headache, numbness, tingling, and seizure. Exam: 13:25 Constitutional: This is a well developed, well nourished patient who is awake, alert, rn and in no acute distress. Head/Face: Normocephalic, atraumatic. Eyes: Pupils equal round and reactive to light, extra-ocular motions intact. Lids and lashes normal. Conjunctiva and sclera are non-icteric and not injected. Cornea within normal limits. Periorbital areas with no swelling, redness, or edema. ENT: dry MM Cardiovascular: Tachycardic, regular, intact distsal pulses Respiratory: Mild hyperventilation, clear bilateral breath sounds Abdomen/GI: soft, non-tender MS/ Extremity: Pulses equal, no cyanosis. Neurovascular intact. Full, normal range of motion. Equal circumference. Neuro: Awake and alert, GCS 15, oriented to person, place, time, and situation. Cranial nerves II-XII grossly intact. Motor strength 5/5 in all extremities. Sensory grossly intact. Cerebellar exam normal. Normal gait. + coarse ext tremor and tongue fasciculations Vital Signs: 12:36 BP 156 / 104; Pulse 137; Resp 16; Temp 97.5(TE); Pulse Ox 98% on R/A; Weight 61.23 kg; ss Height 5 ft. 2 in. (157.48 cm); Pain 8/10; 13:30 BP 132 / 88; Pulse 104; Resp 17; Pulse Ox 99% on R/A; hb 14:15 BP 136 / 92; Pulse 102; Resp 16; Pulse Ox 99% on R/A; hb 15:00 BP 151 / 81; Pulse 85; Resp 15; Pulse Ox 99% on R/A; hb 16:00 BP 151 / 98; Pulse 94; Resp 16; Pulse Ox 97% on R/A; hb 17:00 BP 148 / 89; Pulse 89; Resp 15; Pulse Ox 99% on R/A; hb 18:00 BP 154 / 99; Pulse 76; Resp 14; Pulse Ox 98% on R/A; hb 19:14 BP 145 / 103; Pulse 80; Resp 18; Pulse Ox 98% on R/A; ao 20:00 BP 145 / 78; Pulse 81; Resp 18; Pulse Ox 100% ; mg2 21:00 BP 135 / 78; Pulse 81; Resp 18; Temp 97.8; Pulse Ox 100% on R/A; mg2 12:36 Body Mass Index 24.69 (61.23 kg, 157.48 cm) MDM: 12:38 Patient medically screened. rn 14:48 Differential Diagnosis ETOH withdrawal delirium tremens. Data reviewed: vital signs, rn nurses notes, lab test result(s), and as a result, I will admit patient. Counseling: I had a detailed discussion with the patient and/or guardian regarding: the historical points, exam findings, and any diagnostic results supporting the discharge/admit diagnosis, lab results, the need for further work-up and treatment in the hospital. Response to treatment: the patient's symptoms have mildly improved after treatment, and as a result, I will admit patient. Admission orders: after a detailed discussion of the patient's condition and case, the admit orders are written by me. ED course: Pt improved but still not back to normal, doesn't have good plan when discharged, and does not feel well enough to leave, will admit for ETOH withdrawal and early delirium tremens. . 11/30 12:46 Order name: CBC with Diff; Complete Time: 13:38 rn 11/30 12:46 Order name: Basic Metabolic Panel; Complete Time: 13:47 rn 11/30 12:46 Order name: LFT's; Complete Time: 13:47 rn 11/30 12:46 Order name: Alcohol Level; Complete Time: 13:38 rn 11/30 12:46 Order name: Magnesium; Complete Time: 13:47 rn 11/30 13:58 Order name: Urine Microscopic Only 11/30 14:59 Order name: Urine Dipstick--Ancillary (enter results) 11/30 14:59 Order name: Urine --Ancillary (enter results) 11/30 15:20 Order name: Urine --Ancillary [facility] 11/30 15:20 Order name: Urine Dipstick-Ancillary [facility] 11/30 15:51 Order name: Urine Culture [facility] 11/30 12:46 Order name: IV Start; Complete Time: 13:15 rn 11/30 13:58 Order name: Urine Test (obtain specimen); Complete Time: 14:45 rn 11/30 13:58 Order name: Urine Dipstick-Ancillary (obtain specimen); Complete Time: 14:45 rn Administered Medications: 13:00 Drug: NS 0.9% 1000 ml Route: IV; Rate: 1000 ml; Site: right femoral; hb 19:17 Follow up: IV Status: Completed infusion ao 13:00 Drug: Banana Bag - (NS 0.9% 1000 ml, foLIC Acid 1 mg, Thiamine 100 mg, Multivitamin 1 hb amp) Route: IV; Rate: calculated rate; Site: right antecubital; 19:19 Follow up: Response: No adverse reaction; IV Status: Completed infusion ao 13:00 Drug: Valium 10 mg Route: IVP; Site: right antecubital; hb 19:18 Follow up: Response: No adverse reaction ao 13:04 Drug: Zofran (Ondansetron) 4 mg Route: IVP; Site: right antecubital; hb 19:20 Follow up: Response: No adverse reaction ao 14:00 Drug: Valium 10 mg Route: IVP; Site: right antecubital; hb 19:20 Follow up: Response: No adverse reaction ao 15:18 Not Given (Patient ): Valium 10 mg IVP once jr8 15:35 Drug: Valium 20 mg Route: IVP; Site: right antecubital; ph 19:25 Follow up: Response: No adverse reaction ph 15:35 Drug: Phenergan 12.5 mg Route: IVP; Site: right antecubital; ph 19:25 Follow up: Response: No adverse reaction ph 19:25 Not Given (Other Intervention Used): Zofran (Ondansetron) 4 mg IVP once; over 2 minutes ph Disposition: 12/01/19 14:50 Hospitalization ordered by Dre Arriola for Inpatient Admission. Preliminary diagnosis is Alcohol dependence with withdrawal, unspecified. - Bed requested for Intensive Care Unit. - Status is Inpatient Admission. mg2 - Condition is Stable. - Problem is new. - Symptoms have improved. Signatures: Dispatcher [employer] EDMS Cortes Cortes MD MD rn Smirch, Shelby, RN RN Casey Martin PA PA jr8 Gracy Oden RN RN tl1 Katy Holm RN RN Skyla Graves RN RN Sarwat Paiz RN RN [facility] [place] Singh RN ao Corrections: (The following items were deleted from the chart) 15:19 14:50 Hospitalization Ordered by Casey HUDSON for Inpatient Admission. Preliminary jr8 diagnosis is Alcohol dependence with withdrawal, unspecified. Bed requested for Telemetry/MedSurg (Inpatient). Status is Inpatient Admission. Condition is Stable. Problem is new. Symptoms have improved. rn 20:45 15:19 12/01/2019 14:50 Hospitalization Ordered by Dre Arriola MD for Inpatient tl1 Admission. Preliminary diagnosis is Alcohol dependence with withdrawal, unspecified. Bed requested for Intensive Care Unit. Status is Inpatient Admission. Condition is Stable. Problem is new. Symptoms have improved. jr8 21:30 20:45 12/01/2019 14:50 Hospitalization Ordered by Dre Arriola MD for Inpatient mg2 Admission. Preliminary diagnosis is Alcohol dependence with withdrawal, unspecified. Bed requested for Intensive Care Unit. Status is Inpatient Admission. Condition is Stable. Problem is new. Symptoms have improved. tl1
--- NOTE | 2019-12-01 14:51 | ER ---
Nurse's Notes [facility] Name: Abby Hughes Age: 44 yrs Sex: Female : 1975 Arrival Date: 12/01/2019 Time: 12:15 Bed 19 Private MD: Diagnosis: Alcohol dependence with withdrawal, unspecified Presentation: 11/30 12:36 Chief complaint: Patient states: "alcohol withdrawals". Pt reports her last drink was ss last night. C/o shakiness, diarrhea, vomiting and chest discomfort. Coronavirus screen: The patient has NOT traveled to a country currently being monitored by the [facility] within the last 14 days. Proceed with normal triage procedures. Ebola Screen: Patient denies exposure to infectious person. Patient denies travel to an Ebola-affected area in the 21 days before illness onset. Initial Sepsis Screen: Does the patient meet any 2 criteria? RR > 20 per min. HR > 90 bpm. Does the patient have a suspected source of infection? No. Patient's initial sepsis screen is negative. Risk Assessment: Do you want to hurt yourself or someone else? Patient reports no desire to harm self or others. 12:36 Method Of Arrival: Ambulatory ss 12:36 Acuity: LIZZIE 2 ss 21:30 Onset of symptoms is unknown. ao COUNTER SERVER: 21:00 lmp unnown mg2 Historical: - Allergies: 12:37 No Known Allergies; ss - PMHx: 12:37 Alcoholism; Gall Stones; GERD; Hernia; Hypertension; Migraines; ss - PSHx: 12:37 ; Tubal ligation; Cholecystectomy; ss - Immunization history:: Adult Immunizations up to date. - Social history:: Smoking status: Patient denies any tobacco usage or history of. - Family history:: not pertinent. - Hospitalizations: : No recent hospitalization is reported. Screenin:02 Abuse screen: Denies threats or abuse. Denies injuries from another. Nutritional hb screening: No deficits noted. Tuberculosis screening: No symptoms or risk factors identified. Fall Risk None identified. Assessment: 12:49 General: Appears in no apparent distress. uncomfortable, Behavior is cooperative, hb anxious. Pain: Pain currently is 8 out of 10 on a pain scale. Neuro: Level of Consciousness is awake, alert, obeys commands, Oriented to person, place, time, situation, bilat hand tremors noted, pt c/o headache . Cardiovascular: Heart tones S1 S2 present Capillary refill < 3 seconds Patient's skin is warm and dry. Respiratory: Airway is patent Respiratory effort is even, unlabored, Respiratory pattern is regular, symmetrical, Breath sounds are clear bilaterally. GI: Reports nausea. : No signs and/or symptoms were reported regarding the genitourinary system. EENT: No signs and/or symptoms were reported regarding the EENT system. Derm: Skin is pink, warm \\T\\ dry. Musculoskeletal: No signs and/or symptoms reported regarding the musculoskeletal system. 14:00 Reassessment: Patient appears in no apparent distress at this time. Patient and/or hb family updated on plan of care and expected duration. Pain level reassessed. Patient is alert, oriented x 3, equal unlabored respirations, skin warm/dry/pink. 15:00 Reassessment: Patient appears in no apparent distress at this time. Patient and/or hb family updated on plan of care and expected duration. Pain level reassessed. Patient is alert, oriented x 3, equal unlabored respirations, skin warm/dry/pink. 16:00 Reassessment: Patient appears in no apparent distress at this time. Patient and/or hb family updated on plan of care and expected duration. Pain level reassessed. Patient is alert, oriented x 3, equal unlabored respirations, skin warm/dry/pink. 17:00 Reassessment: Patient appears in no apparent distress at this time. Patient and/or hb family updated on plan of care and expected duration. Pain level reassessed. Patient is alert, oriented x 3, equal unlabored respirations, skin warm/dry/pink. 18:00 Reassessment: Patient appears in no apparent distress at this time. Patient and/or hb family updated on plan of care and expected duration. Pain level reassessed. Patient is alert, oriented x 3, equal unlabored respirations, skin warm/dry/pink. 19:05 Reassessment: Patient appears in no apparent distress at this time. Patient and/or hb family updated on plan of care and expected duration. Pain level reassessed. Patient is alert, oriented x 3, equal unlabored respirations, skin warm/dry/pink. 19:13 Reassessment: Patient appears in no apparent distress at this time. Patient and/or ao family updated on plan of care and expected duration. Pain level reassessed. Received report from TANYA Crum. Patient stable at this time. 21:35 Reassessment: Report given to TANYA Maciel. Patient to be taking to ICU bed 6. Patient ao agree with POC. Vital Signs: 12:36 BP 156 / 104; Pulse 137; Resp 16; Temp 97.5(TE); Pulse Ox 98% on R/A; Weight 61.23 kg; ss Height 5 ft. 2 in. (157.48 cm); Pain 8/10; 13:30 BP 132 / 88; Pulse 104; Resp 17; Pulse Ox 99% on R/A; hb 14:15 BP 136 / 92; Pulse 102; Resp 16; Pulse Ox 99% on R/A; hb 15:00 BP 151 / 81; Pulse 85; Resp 15; Pulse Ox 99% on R/A; hb 16:00 BP 151 / 98; Pulse 94; Resp 16; Pulse Ox 97% on R/A; hb 17:00 BP 148 / 89; Pulse 89; Resp 15; Pulse Ox 99% on R/A; hb 18:00 BP 154 / 99; Pulse 76; Resp 14; Pulse Ox 98% on R/A; hb 19:14 BP 145 / 103; Pulse 80; Resp 18; Pulse Ox 98% on R/A; ao 20:00 BP 145 / 78; Pulse 81; Resp 18; Pulse Ox 100% ; mg2 21:00 BP 135 / 78; Pulse 81; Resp 18; Temp 97.8; Pulse Ox 100% on R/A; mg2 12:36 Body Mass Index 24.69 (61.23 kg, 157.48 cm) ED Course: 12:15 Patient arrived in ED. rg4 12:37 Triage completed. ss 12:37 Arm band placed on left wrist. ss 12:38 Cortes Cortes MD is Attending Physician. rn 12:53 Skyla Graves RN is Primary Nurse. hb 13:02 Patient has correct armband on for positive identification. Bed in low position. Call hb light in reach. Side rails up X 1. 13:02 Inserted saline lock: 20 gauge in right antecubital area, using aseptic technique. hb Blood collected. 14:40 Urine collected: clean catch specimen, cloudy. 3 14:49 Casey Martin PA is Hospitalizing Provider. rn 15:19 Dre Arriola MD is Hospitalizing Provider. jr8 15:27 Urine --Ancillary (enter results) Sent. hb 15:27 Urine Dipstick--Ancillary (enter results) Sent. hb 21:30 No provider procedures requiring assistance completed. Patient admitted, IV remains in mg2 place. Administered Medications: 13:00 Drug: NS 0.9% 1000 ml Route: IV; Rate: 1000 ml; Site: right femoral; hb 19:17 Follow up: IV Status: Completed infusion ao 13:00 Drug: Banana Bag - (NS 0.9% 1000 ml, foLIC Acid 1 mg, Thiamine 100 mg, Multivitamin 1 hb amp) Route: IV; Rate: calculated rate; Site: right antecubital; 19:19 Follow up: Response: No adverse reaction; IV Status: Completed infusion ao 13:00 Drug: Valium 10 mg Route: IVP; Site: right antecubital; hb 19:18 Follow up: Response: No adverse reaction ao 13:04 Drug: Zofran (Ondansetron) 4 mg Route: IVP; Site: right antecubital; hb 19:20 Follow up: Response: No adverse reaction ao 14:00 Drug: Valium 10 mg Route: IVP; Site: right antecubital; hb 19:20 Follow up: Response: No adverse reaction ao 15:18 Not Given (Patient ): Valium 10 mg IVP once jr8 15:35 Drug: Valium 20 mg Route: IVP; Site: right antecubital; ph 19:25 Follow up: Response: No adverse reaction ph 15:35 Drug: Phenergan 12.5 mg Route: IVP; Site: right antecubital; ph 19:25 Follow up: Response: No adverse reaction ph 19:25 Not Given (Other Intervention Used): Zofran (Ondansetron) 4 mg IVP once; over 2 minutes ph Outcome: 14:50 Decision to Hospitalize by Provider. rn 21:30 Patient left the ED. mg2 21:30 Admitted to ICU accompanied by nurse, via stretcher, room 6. mg2 21:30 Condition: stable 21:30 Instructed on the need for admit, Demonstrated understanding of instructions. Signatures: Cortes Cortes MD MD rn Smirch, Shelby, RN RN ss Roszak, Josh, PA PA jr8 Katy Holm RN RN ph Eric Singh RN RN Skyal Fernandez RN RN Josy Cisneros 4 Sigrid Dominguez 3 Sarwat Paiz RN RN mg2 Corrections: (The following items were deleted from the chart) 12/01 06:34 06:31 Onset of symptoms is unknown. ao ao
[2019-12-01 15:18] LABS: Urine Bacteria 20-50 /HPF (<20); Urine Culture Reflex Order REFLEXED; Urine Mucus 1+ /HPF (NONE SEEN)
[2019-12-01 15:18] LABS: Urine Blood TRACE (NEG); Urine Glucose NEGATIVE (NEG); Urine Protein 1+ (NEG); Urine Specific Gravity 1.025 (1.005-1.030)
[2019-12-01] MEDS ORDERED: PROMETHAZINE INJ 25 MG/ML AMP ONE (15:47)
--- NOTE | 2019-12-01 17:58 | P.HP ---
Certification for Inpatient Patient admitted to: Inpatient With expected LOS: >2 Midnights Patient will require the following post-hospital care: None Practitioner: I am a practitioner with admitting privileges, knowledge of patient current condition, hospital course, and medical plan of care. Services: Services provided to patient in accordance with Admission requirements found in Title 42 Section 412.3 of the Code of Federal Regulations <Darshana Martinshua - Last Filed: 12/01/19 17:46> Patient History Date of Service: 12/01/19 Primary Care Provider: None Reason for admission: Acute Alcohol Withdrawal History of Present Illness: This is a 44-year-old female that came to the emergency room today after she started feeling bad because she had not drank in the past several hr. Patient stated that her last alcoholic beverage was sometime last night. Came in this afternoon and she became shaky and nauseated. Stated that she had vomiting and dry heaving. Overall does not feel well. Has done this several times in the past. Stated that she had been about 4 months sober but then started to drink again. Had drink for couple years straight before trying to go to rehab but that rehab was not working in the past. Emergency room evaluated patient and attempted to stabilize patient enough to be discharged to follow up with detox facility but patient continued to have resting tremors, tachycardia, hypertension an nausea along with anxiety. At that time we were consulted for admission at which patient will be admitted to ICU for further evaluation of acute alcoholic withdrawal without altered mentation. Home medications list reviewed: Yes - Past Medical/Surgical History Has patient received pneumonia vaccine in the past: No Diabetic: No -: Anxiety -: Alcohol abuse -: Increased social/family dysfunction -: c-sections 2x -: tubal ligation Psychosocial/ Personal History: Patient is . She has 2 children. She does not work. - Family History Mother -: Heart disease, Hypertension, Diabetes Father -: Hypertension, Other (see notes) Notes: high cholesterol. depression parents -: Hypertension - Social History Smoking Status: Never smoker Alcohol use: Yes CD- Drugs: No Caffeine use: Yes Place of Residence: Home <Sukhi Martin - Last Filed: 12/01/19 17:46> Date of Service: 12/02/19 <Dre Arriola - Last Filed: 12/02/19 14:20> Allergies No Known Allergies Allergy (Verified 09/10/18 22:50) Home Medications: NK [No Home Meds] 12/01/19 Review of Systems General: As per HPI Eyes: Unremarkable ENT: Unremarkable Respiratory: Unremarkable Cardiovascular: Unremarkable Gastrointestinal: Unremarkable Musculoskeletal: Unremarkable Integumentary: Unremarkable Neurological: Unremarkable Lymphatics: Unremarkable <Sukhi Martin - Last Filed: 12/01/19 17:46> Physical Examination - Vital Signs Temperature: 97.5 F Blood Pressure: 156/104 Pulse: 137 Respirations: 16 Pulse Ox (%): 98 - Physical Exam General: Alert, Oriented x3, Mild distress HEENT: Normocephalic, PERRLA, Mucous membr. moist/pink, EOMI Neck: Supple, 2+ carotid pulse no bruit, JVD not distended Respiratory: Clear to auscultation bilaterally, Normal air movement Cardiovascular: No edema, Normal pulses, Irregular heart rate/rhythm ( tachycardic ) Capillary refill: <2 Seconds Gastrointestinal: Normal bowel sounds, Soft and benign, Non-distended, No ascites, No tenderness, No masses, No rebound, No guarding Musculoskeletal: No clubbing, No swelling, No contractures, No erythema, No tenderness, No warmth Integumentary: No rashes, No breakdown, No significant lesion, No tenderness/ swelling, No erythema, No warmth, No cyanosis Neurological: Normal speech, Normal strength at 5/5 x4 extr, Normal tone, Sensation intact, Cranial nerves 3-12 intact, Normal reflexes 2+, Normal affect Lymphatics: No axilla or inguinal lymphadenopathy - Studies Laboratory Data (last 24 hrs) 12/01/19 13:08: Sodium 136, Potassium 3.6, BUN 12, Creatinine 1.05, Glucose 115 H, Magnesium 1.6 L, Total Bilirubin 0.8, AST 41 H, ALT 38, Alkaline Phosphatase 79 12/01/19 13:08: WBC 8.6, Hgb 15.0, Hct 44.6, Plt Count 237 <Sukhi Martin - Last Filed: 12/01/19 17:46> Assessment and Plan - Problems (Diagnosis) (1) GERD (gastroesophageal reflux disease) Current Visit: Yes Status: Chronic Qualifiers: Esophagitis presence: without esophagitis Qualified Code(s): K21.9 - Gastro -esophageal reflux disease without esophagitis (2) Alcohol abuse Current Visit: No Status: Acute (3) Alcohol withdrawal Current Visit: No Status: Acute Qualifiers: Complication of substance-induced condition: uncomplicated Qualified Code(s ): F10.230 - Alcohol dependence with withdrawal, uncomplicated (4) HTN (hypertension) Current Visit: No Status: Chronic Qualifiers: Hypertension type: essential hypertension Qualified Code(s): I10 - Essential (primary) hypertension (5) Nausea & vomiting Onset Date: 11/04/18 Current Visit: No Status: Acute Qualifiers: Vomiting type: unspecified Vomiting Intractability: non-intractable Qualified Code(s): R11.2 - Nausea with vomiting, unspecified - Plan This is a 44-year-old female that will be admitted to the intensive care unit for further observation secondary to acute alcohol withdrawal. Patient had been experiencing tremors, tachycardia, nausea vomiting, hypertension secondary to the acute withdrawal. The patient has been put on Ativan as needed and scheduled for agitation and withdrawal. Nausea medicine as needed. Along with vitamin supplementation and and fluids. Patient had slight electrolyte disturbance which will be evaluated and replaced as needed. Patient will be monitored closely over the next 24 hr and if she does well will be downgraded to floor with hopes to discharge her on medication and to follow up with detox center. The patient also has chronic acid reflux and hypertension which will be evaluated and controlled as needed as well. Discharge Plan: Home Plan to discharge in: 48 Hours - Advance Directives Does patient have a Living Will: No Does patient have a Durable POA for Healthcare: No - Code Status/Comfort Care Code Status Assessed: Yes Critical Care: No Time Spent Managing Pts Care (In Minutes): 45 <Sukhi Martin - Last Filed: 12/01/19 17:46> Physician Review: Patient Assessed, Agree with Above Assessment and Plan Physician Review Additional Text: Case discussed w TRISTAN. Chart reviewed <Dre Arriola - Last Filed: 12/02/19 14:20>
[2019-12-01] MEDS: LORazepam 2 MG/ML VIAL IV SCH ×2 (20:03→23:58)
[2019-12-01] MEDS ORDERED: LORazepam 2 MG/ML VIAL ONE (20:12)
[2019-12-01] MEDS ORDERED: FLUMAZENIL 0.1 MG/ML (5 mL VIAL) IV PRN (21:14)
[2019-12-01] MEDS ORDERED: CEFTRIAXONE 1 GM/NS 50 ML 1 GM/50 ML BAG IV SCH (21:14)
[2019-12-01] MEDS ORDERED: ONDANSETRON 4 MG/2 ML VIAL IV PRN (21:14)
[2019-12-01] MEDS ORDERED: HYDRALAZINE HCL 20 MG/ML VIAL IV PRN (21:14)
[2019-12-01] MEDS: NA CHLORIDE 0.9% 1,000 ML IV SCH (21:50)
[2019-12-01] MEDS: FAMOTIDINE 20 MG/2 ML VIAL IV SCH (21:51)
[2019-12-01] MEDS ORDERED: MAGNESIUM SULFATE 1 gm IVPB 1 GM/100 ML BAG IV ONE (21:53)
[2019-12-01] MEDS ORDERED: CEFTRIAXONE/SWI 1gm 1 GM/10 ML SYR ONE (21:54)
[2019-12-01] MEDS ORDERED: POTASSIUM CL SA 10 MEQ TAB PO ONE (22:06)
[2019-12-01] MEDS: LORazepam 2 MG/ML VIAL IV PRN (22:07)
[2019-12-02] MEDS: LORazepam 2 MG/ML VIAL IV SCH ×3 (04:03→08:00)
[2019-12-02 05:00] VITALS: BMI 26.2
[2019-12-02 05:08] LABS: Absolute Lymphocytes (CBC) 1.2 K/uL (0.7-4.9); Basophils % 0.9 % (0-1.3); Hematocrit 35.8 % (36.0-45.0); Lymphocytes % 23.5 % (15.3-44.8); MPV 8.4 fL (7.6-11.3); RBC Red Blood Cell Count 3.74 M/uL (3.86-4.86)
[2019-12-02 05:16] LABS: Magnesium 2.1 mg/dL (1.8-2.4); Potassium 4.1 mmol/L (3.5-5.1)
[2019-12-02] MEDS: NA CHLORIDE 0.9% 1,000 ML IV SCH (06:59)
[2019-12-02] MEDS: FAMOTIDINE 20 MG/2 ML VIAL IV SCH ×2 (08:01→21:22)
[2019-12-02] MEDS: ENOXAPARIN 40 MG/0.4 ML SQ SCH (08:02)
[2019-12-02] MEDS: THIAMINE HCL 100 MG TABLET PO SCH (08:19)
[2019-12-02] MEDS: FOLIC ACID 1 MG TABLET PO SCH (08:19)
[2019-12-02] MEDS: MULTIVITAMIN TAB PO SCH (08:19)
[2019-12-02] MEDS ORDERED: CEFTRIAXONE/SWI 1gm 1 GM/10 ML SYR IV SCH (09:00)
[2019-12-02] MEDS ORDERED: LORazepam 2 MG/ML VIAL IV PRN (09:22)
--- NOTE | 2019-12-02 12:04 | P.PN ---
Subjective Date of Service: 12/02/19 Primary Care Provider: None Chief Complaint: Acute Alcohol Withdrawal Subjective: No new changes, Improving Review of Systems Unremarkable Physical Examination - Vital Signs Temperature: 98 F Blood Pressure: 109/75 Pulse: 97 Respirations: 15 Pulse Ox (%): 97 - Physical Exam General: Alert, In no apparent distress, Oriented x3 HEENT: Atraumatic, Normocephalic, PERRLA Neck: Supple Respiratory: Clear to auscultation bilaterally, Normal air movement Cardiovascular: Regular rate/rhythm, Normal S1 S2 Gastrointestinal: Normal bowel sounds, Soft and benign, Non-distended Musculoskeletal: No clubbing, No contractures Integumentary: No rashes, No breakdown Neurological: Normal gait, Normal speech, Other (mild tremors ) - Studies Laboratory Data (last 24 hrs) 12/01/19 13:08: Sodium 136, Potassium 3.6, BUN 12, Creatinine 1.05, Glucose 115 H, Magnesium 1.6 L, Total Bilirubin 0.8, AST 41 H, ALT 38, Alkaline Phosphatase 79 12/01/19 13:08: WBC 8.6, Hgb 15.0, Hct 44.6, Plt Count 237 Laboratory Last Values WBC 5.3 K/uL (4.3-10.9) D 12/02/19 04:45 RBC 3.74 M/uL (3.86-4.86) L D 12/02/19 04:45 Hgb 11.9 g/dL (12.0-15.0) L D 12/02/19 04:45 Hct 35.8 % (36.0-45.0) L D 12/02/19 04:45 MCV 95.7 fL (80-100) 12/02/19 04:45 MCH 31.9 pg (27.0-35.0) 12/02/19 04:45 MCHC 33.3 g/dL (32.0-36.0) 12/02/19 04:45 RDW 14.1 % (12.1-15.2) 12/02/19 04:45 Plt Count 159 K/uL (152-406) D 12/02/19 04:45 MPV 8.4 fL (7.6-11.3) 12/02/19 04:45 Neutrophils % 59.7 % (41.7-73.7) 12/02/19 04:45 Lymphocytes % 23.5 % (15.3-44.8) 12/02/19 04:45 Monocytes % 12.9 % (3.3-12.3) H 12/02/19 04:45 Eosinophils % 3.0 % (0-4.4) 12/02/19 04:45 Basophils % 0.9 % (0-1.3) 12/02/19 04:45 Absolute Neutrophils 3.2 K/uL (1.8-8.0) 12/02/19 04:45 Absolute Lymphocytes 1.2 K/uL (0.7-4.9) 12/02/19 04:45 Absolute Monocytes 0.7 K/uL (0.1-1.3) 12/02/19 04:45 Absolute Eosinophils 0.2 K/uL (0-0.5) 12/02/19 04:45 Absolute Basophils 0.0 K/uL (0-0.5) 12/02/19 04:45 Sodium 141 mmol/L (136-145) 12/02/19 04:45 Potassium 4.1 mmol/L (3.5-5.1) 12/02/19 04:45 Chloride 113 mmol/L (98-107) H 12/02/19 04:45 Carbon Dioxide 24 mmol/L (21-32) 12/02/19 04:45 BUN 16 mg/dL (7-18) 12/02/19 04:45 Creatinine 0.84 mg/dL (0.55-1.3) 12/02/19 04:45 Estimated GFR 74 mL/min (=/>90) L 12/02/19 04:45 Glucose 98 mg/dL (74-106) 12/02/19 04:45 POC Glucose 112 mg/dl (65-120) 12/02/19 00:06 Calcium 7.9 mg/dL (8.5-10.1) L D 12/02/19 04:45 Magnesium 2.1 mg/dL (1.8-2.4) D 12/02/19 04:45 Total Bilirubin 0.8 mg/dL (0.2-1.0) 12/01/19 13:08 Direct Bilirubin 0.2 mg/dL (0-0.2) 12/01/19 13:08 AST 41 U/L (15-37) H 12/01/19 13:08 ALT 38 U/L (12-78) 12/01/19 13:08 Alkaline Phosphatase 79 U/L (45-117) 12/01/19 13:08 Serum Total Protein 8.4 g/dL (6.4-8.2) H 12/01/19 13:08 Albumin 4.1 g/dL (3.4-5.0) 12/01/19 13:08 Globulin 4.3 g/dL (2.3-3.5) H 12/01/19 13:08 Albumin/Globulin Ratio 1.0 (1.1-1.8) L 12/01/19 13:08 Urine pH 6.0 (5.0-7.0) 12/01/19 14:59 Ur Specific [place] 1.025 (1.005-1.030) 12/01/19 14:59 Glucose (UA)(Auto) Negative (NEG) 12/01/19 14:59 Urine Ketones 1+ (NEG) H 12/01/19 14:59 Urine Blood Trace (NEG) H 12/01/19 14:59 Urine Nitrite Positive (NEG) H 12/01/19 14:59 Ur Leukocyte Esterase Negative (NEG) 12/01/19 14:59 Urine RBC 5-10 /HPF (NONE SEEN) H 12/01/19 14:40 Urine WBC <5 /HPF (<5) 12/01/19 14:40 Ur Squamous Epith Cells <5 /HPF (NONE SEEN) 12/01/19 14:40 Urine Bacteria 20-50 /HPF (<20) H 12/01/19 14:40 Urine Mucus 1+ /HPF (NONE SEEN) 12/01/19 14:40 Urine Culture Reflexed Reflexed 12/01/19 14:40 Urine Total Protein 1+ (NEG) H 12/01/19 14:59 Urine Test Neg (NEG) 12/01/19 14:59 Plasma/Serum Alcohol 17 mg/dL (<10) H 12/01/19 13:08 Assessment & Plan Plan to discharge in: 24 Hours - Code Status/Comfort Care Code Status Assessed: Yes Code Status: Full Code Physician Review: Patient Assessed, Agree with Above Assessment and Plan Physician Review Additional Text: # Alcohol withdrawal - improving -will change dana Ativan to prn - c/w at q4h prn - will transfer to floor now , no ICU indication # HTN -controlled, diet controlled # Hypomagnesmeia -improved , s/p repleted # GERD- on PPI transfer to floor today ,
[2019-12-02] MEDS: LORazepam 2 MG/ML VIAL IV PRN ×2 (19:28→21:22)
[2019-12-02] MEDS: CIPROFLOXACIN HCL 500 MG TAB PO SCH (21:22)
[2019-12-03] MEDS: LORazepam 2 MG/ML VIAL IV PRN ×3 (00:53→09:09)
[2019-12-03] MEDS: ENOXAPARIN 40 MG/0.4 ML SQ SCH (09:08)
[2019-12-03] MEDS: FOLIC ACID 1 MG TABLET PO SCH (09:10)
[2019-12-03] MEDS: FAMOTIDINE 20 MG/2 ML VIAL IV SCH (09:10)
[2019-12-03] MEDS: CIPROFLOXACIN HCL 500 MG TAB PO SCH (09:10)
[2019-12-03] MEDS: MULTIVITAMIN TAB PO SCH (09:10)
[2019-12-03] MEDS: THIAMINE HCL 100 MG TABLET PO SCH (09:10)
[2019-12-03 09:28] VITALS: O2SAT 99
--- NOTE | 2019-12-03 11:40 | P.DS ---
Admission Date: 12/01/19 Discharge Date: 12/03/19 Primary Care Provider: None Disposition: ROUTINE DISCHARGE Discharge Condition: GOOD Reason for Admission: Acute Alcohol Withdrawal Brief History of Present Illness: History of Present Illness: This is a 44-year-old female that came to the emergency room today after she started feeling bad because she had not drank in the past several hr. Patient stated that her last alcoholic beverage was sometime last night. Came in this afternoon and she became shaky and nauseated. Stated that she had vomiting and dry heaving. Overall does not feel well. Has done this several times in the past. Stated that she had been about 4 months sober but then started to drink again. Had drink for couple years straight before trying to go to rehab but that rehab was not working in the past. Emergency room evaluated patient and attempted to stabilize patient enough to be discharged to follow up with detox facility but patient continued to have resting tremors, tachycardia, hypertension an nausea along with anxiety. At that time we were consulted for admission at which patient will be admitted to ICU for further evaluation of acute alcoholic withdrawal without altered mentation. Hospital Course: Patient with past medical history of GERD admitted for alcohol abuse plan increase tremulousness. She was admitted for impending alcohol withdrawal symptoms. She was treated with IV Ativan which was initially scheduled for switch to p.r.n.. Patient has be doing well with minimal Ativan does over the last 24 hr. She has noted to have asymptomatic UTI and started on empirical antibiotics with Keflex. She was evaluated by a case management and scheduled for discharge with referral to outpatient detox is scheduled Vital Signs/Physical Exam: Temp Pulse Resp BP Pulse Ox 97.9 F 79 16 140/93 H 100 12/03/19 09:00 12/03/19 09:00 12/03/19 09:00 12/03/19 09:00 12/03/19 09:00 General: Alert, In no apparent distress, Oriented x3 HEENT: Atraumatic, Normocephalic, PERRLA Neck: Supple, 2+ carotid pulse no bruit, JVD not distended Respiratory: Clear to auscultation bilaterally, Normal air movement Cardiovascular: Normal pulses, Regular rate/rhythm, Normal S1 S2 Gastrointestinal: Normal bowel sounds, Soft and benign, Non-distended Musculoskeletal: No clubbing, No swelling Neurological: Normal gait, Normal speech, Normal strength at 5/5 x4 extr Laboratory Data at Discharge: WBC 5.3 K/uL (4.3-10.9) D 12/02/19 04:45 Hgb 11.9 g/dL (12.0-15.0) L D 12/02/19 04:45 Hct 35.8 % (36.0-45.0) L D 12/02/19 04:45 Plt Count 159 K/uL (152-406) D 12/02/19 04:45 Sodium 141 mmol/L (136-145) 12/02/19 04:45 Potassium 4.1 mmol/L (3.5-5.1) 12/02/19 04:45 BUN 16 mg/dL (7-18) 12/02/19 04:45 Creatinine 0.84 mg/dL (0.55-1.3) 12/02/19 04:45 Glucose 98 mg/dL (74-106) 12/02/19 04:45 Magnesium 2.1 mg/dL (1.8-2.4) D 12/02/19 04:45 Total Bilirubin 0.8 mg/dL (0.2-1.0) 12/01/19 13:08 AST 41 U/L (15-37) H 12/01/19 13:08 ALT 38 U/L (12-78) 12/01/19 13:08 Alkaline Phosphatase 79 U/L (45-117) 12/01/19 13:08 Home Medications: Cephalexin [Keflex*] 500 mg PO BID #10 cap 12/03/19 Pantoprazole Sodium [Protonix] 40 mg PO DAILY #30 tablet. 12/03/19 Thiamine HCl [Vitamin B-1*] 100 mg PO DAILY #30 tablet 12/03/19 New Medications: Cephalexin [Keflex*] 500 mg PO BID #10 cap Pantoprazole Sodium [Protonix] 40 mg PO DAILY #30 tablet. Thiamine HCl [Vitamin B-1*] 100 mg PO DAILY #30 tablet Diet: Regular Activity: Ad jessie Time spent managing pt's care (in minutes): 35
[2019-12-03 13:01] VITALS: BP 117/86; TEMP 98.3
[2019-12-03] MEDS ORDERED: LORazepam 2 MG/ML VIAL IV SCH (15:27)
[2019-12-03] MEDS ORDERED: CEPHALEXIN 500 MG CAP PO SCH (21:00)
== END 2019-12-03 13:00 | disposition home or self-care (01) | DRG 897 ==
LOC: ER 12:12 → ERHOLD 15:21 → 3RD-ICU 21:18 → 2ND 12-02 16:40
PROVIDERS: ADMIT Family Medicine; ATTEND Internal Medicine
DX: F10.239 Alcohol dependence with withdrawal, unspecified (principal); T51.0X1A Toxic effect of ethanol, accidental (unintentional), initial encounter; Y90.0 Blood alcohol level of less than 20 mg/100 ml; K21.9 Gastro-esophageal reflux disease without esophagitis; I10 Essential (primary) hypertension; R00.0 Tachycardia, unspecified; F41.9 Anxiety disorder, unspecified; E83.42 Hypomagnesemia
CPT/HCPCS: 36415; 80048; 80076; 80320; 81003; 81015; 81025; 82947; 83735; 85025; 87077; 87086; 87088; 87186; 96365; 96366; 96375; 99285; J0696; J1650; J2405; J2550; J3360; J3411; J3475; J7030

== ENCOUNTER 2020-06-27 22:21 | Emergency (ER) | payer SELFPAY ==
[2020-06-27 23:43] LABS: Basophils % 0.6 % (0-1.3); Hematocrit 39.3 % (36.0-45.0); Lymphocytes % 20.3 % (15.3-44.8); MPV 8.1 fL (7.6-11.3); RBC Red Blood Cell Count 4.26 M/uL (3.86-4.86)
[2020-06-27 23:44] LABS: Protime INR 0.97
[2020-06-27] MEDS ORDERED: METOCLOPRAMIDE 10 MG/2mL INJ ONE (23:48)
[2020-06-27] MEDS ORDERED: DIPHENHYDRAMINE 50 MG/ML VIAL ONE (23:48)
[2020-06-27 23:59] LABS: Barbiturates NEGATIVE (NEGATIVE); Benzodiazepines NEGATIVE (NEGATIVE); Cocaine NEGATIVE (NEGATIVE); METHAMPHETAM NEGATIVE (NEGATIVE); Methadone NEGATIVE (NEGATIVE); Opiates NEGATIVE (NEGATIVE); Phencyclidine NEGATIVE (NEGATIVE); THC Cannibis NEGATIVE (NEGATIVE)
[2020-06-27] MEDS ORDERED: NA CHLORIDE 0.9% 1,000 ML ONE (23:59)
[2020-06-28 00:02] LABS: ALT/SGPT 26 U/L (12-78); AST/SGOT 18 U/L (15-37); Albumin 3.9 g/dL (3.4-5.0); Alkaline Phosphatase 82 U/L (45-117); BUN Blood Urea Nitrogen 12 mg/dL (7-18); Bicarbonate 23 mmol/L (21-32); Bilirubin Direct < 0.1 mg/dL (0-0.2); Bilirubin Total 0.2 mg/dL (0.2-1.0); Glucose Level 100 mg/dL (74-106); NT PRO-BNP 64 pg/mL (<125); Potassium 3.9 mmol/L (3.5-5.1); Protein, Total 7.6 g/dL (6.4-8.2); Sodium Level 138 mmol/L (136-145); Troponin (Emerg Dept Use Only) < 0.02 ng/mL (0.0-0.045)
[2020-06-28 00:11] LABS: Urine Blood TRACE (NEG); Urine Glucose NEGATIVE (NEG); Urine Protein NEGATIVE (NEG); Urine Specific Gravity 1.025 (1.005-1.030)
[2020-06-28] MEDS ORDERED: NA CHLORIDE 0.9% 1,000 ML ONE (00:41)
[2020-06-28] MEDS ORDERED: CEFTRIAXONE/SWI 1gm 1 GM/10 ML SYR ONE (00:41)
[2020-06-28] MEDS ORDERED: KETOROLAC 30 MG/ML INJ ONE (03:46)
--- NOTE | 2020-06-28 04:27 | ER ---
Nurse's Notes [facility] Name: Abby Hughes Age: 45 yrs Sex: Female : 1975 Arrival Date: 06/27/2020 Time: 22:22 Bed 18 Private MD: Diagnosis: Chest pain, unspecified;Headache;Urinary tract infection, site not specified Presentation: 06/27 22:28 Acuity: LIZZIE 3 sg 22:28 Chief complaint: Patient states: CP began yesterday, radiating to left arm, feels numb, sg states feeling and pain is intermittent, reports having hx anxiety and feels like panicking. 22:59 Chief complaint: Patient states: states her chest pain started yesterday, and is now ll2 going down her left arm causing numbness, states the pain comes and goes, but she also suffers from anxiety and feels like she is panicking. Coronavirus screen: Client denies travel out of the [place] in the last 14 days. At this time, the client does not indicate any symptoms associated with coronavirus-19. Ebola Screen: Patient negative for fever greater than or equal to 101.5 degrees Fahrenheit, and additional compatible Ebola Virus Disease symptoms. Initial Sepsis Screen: Does the patient meet any 2 criteria? No. Patient's initial sepsis screen is negative. Does the patient have a suspected source of infection? No. Patient's initial sepsis screen is negative. Risk Assessment: Do you want to hurt yourself or someone else? Patient reports no desire to harm self or others. Onset of symptoms was June 26, 2020. 22:59 Method Of Arrival: Ambulatory ll2 FRONT DESK AUXILIARY: 06/28 04:51 LMP N/A - control method ll2 Historical: - Allergies: 06/27 22:28 No Known Allergies; sg - PMHx: 22:28 Alcoholism; Gall Stones; GERD; Hernia; Hypertension; Migraines; sg - PSHx: 22:28 ; Cholecystectomy; Tubal ligation; sg - Immunization history:: Adult Immunizations not up to date. - Social history:: Smoking status: Patient reports the use of cigarette tobacco products, Patient uses alcohol, on a daily basis. Screenin:57 Abuse screen: Denies threats or abuse. Nutritional screening: No deficits noted. ll2 Tuberculosis screening: No symptoms or risk factors identified. Fall Risk None identified. Assessment: 22:56 General: Appears in no apparent distress. Behavior is calm, cooperative, appropriate ll2 for age. Pain: Complains of pain in mid-sternal area Pain does not radiate. Pain currently is 5 out of 10 on a pain scale. Pain began suddenly. Neuro: Level of Consciousness is awake, alert, obeys commands, Oriented to person, place, time, situation. Cardiovascular: Capillary refill < 3 seconds Patient's skin is warm and dry. Cardiovascular: Rhythm is sinus rhythm. Respiratory: Airway is patent Respiratory effort is even, unlabored, Respiratory pattern is regular, symmetrical. GI: No signs and/or symptoms were reported involving the gastrointestinal system. : No signs and/or symptoms were reported regarding the genitourinary system. EENT: No signs and/or symptoms were reported regarding the EENT system. Derm: Skin is intact, is healthy with good turgor, Skin is dry, Skin is pink, warm \T\ dry. Skin temperature is warm. Musculoskeletal: Circulation, motion, and sensation intact. Range of motion: intact in all extremities. 06/28 00:00 Reassessment: Patient and/or family updated on plan of care and expected duration. Pain ll2 level reassessed. Patient is alert, oriented x 3, equal unlabored respirations, skin warm/dry/pink. 02:06 Reassessment: Patient and/or family updated on plan of care and expected duration. Pain ll2 level reassessed. Patient is alert, oriented x 3, equal unlabored respirations, skin warm/dry/pink. pt resting with lights dimmed. 03:36 Reassessment: Patient and/or family updated on plan of care and expected duration. Pain ll2 level reassessed. Patient is alert, oriented x 3, equal unlabored respirations, skin warm/dry/pink. pt stated her pain was slightly improved but she was still hurting, verbal order obtained from [facility], charted and administered. Vital Signs: 06/27 22:58 BP 177 / 99; Pulse 95; Resp 20; Pulse Ox 97% on R/A; Pain 5/10; ll2 06/28 00:00 BP 162 / 96; Pulse 88; Resp 17; Pulse Ox 100% on R/A; ll2 01:00 BP 129 / 79; Pulse 84; Resp 17; Pulse Ox 94% on R/A; ll2 02:00 BP 137 / 89; Pulse 84; Resp 17; Pulse Ox 100% on R/A; ll2 03:00 BP 116 / 63; Pulse 72; Resp 22; Pulse Ox 99% on R/A; ll2 04:00 BP 108 / 65; Pulse 90; Resp 18; Pulse Ox 97% on R/A; ll2 ED Course: 06/27 22:22 Patient arrived in ED. am2 22:28 Triage completed. sg 22:28 Arm band placed on. sg 22:47 Philip Carreon MD is Attending Physician. 7 22:55 Bridget Lovelace, TANYA is Primary Nurse. ll2 22:59 Patient has correct armband on for positive identification. Bed in low position. Call ll2 light in reach. Side rails up X 1. monitoring tech on. Pulse ox on. NIBP on. 23:30 Inserted saline lock: 20 gauge in right antecubital area, using aseptic technique. ea 06/28 00:03 Urine --Ancillary (enter results) Sent. ll2 00:39 XRAY Chest (1 view) In Process Unspecified. EDMS 03:06 Head Brain Wo Cont In Process Unspecified. EDMS 04:51 No provider procedures requiring assistance completed. IV discontinued, intact, ll2 bleeding controlled, No redness/swelling at site. Pressure dressing applied. Patient maintains SpO2 saturation greater than 95% on room air. Administered Medications: 06/27 23:53 Drug: Benadryl 50 mg Route: IVP; Site: right antecubital; ll2 23:53 Follow up: Response: No adverse reaction ll2 23:53 Drug: NS 0.9% 1000 ml Route: IV; Rate: 1000 ml; Site: right antecubital; ll2 06/28 04:54 Follow up: Response: No adverse reaction; IV Status: Completed infusion ll2 00:02 Drug: Reglan 10 mg Route: IVP; Site: right antecubital; ll2 02:07 Follow up: Response: No adverse reaction ll2 00:40 Drug: Rocephin 1 grams Route: IV; Rate: 1 calculated rate; Site: right antecubital; ea 04:54 Follow up: IV Status: Completed infusion ll2 00:40 Drug: NS 0.9% 1000 ml Route: IV; Rate: 1 bolus; Site: right antecubital; ea 04:54 Follow up: Response: No adverse reaction; IV Status: Completed infusion ll2 03:36 Drug: TORadol 30 mg Route: IVP; Site: right antecubital; ll2 03:36 Follow up: Response: No adverse reaction ll2 04:54 Follow up: Response: No adverse reaction ll2 Outcome: 04:26 Discharge ordered by MD. [email or web address] 04:53 Discharged to home ambulatory. ll2 04:53 Condition: stable 04:53 Discharge instructions given to patient, Instructed on discharge instructions, follow up and referral plans. medication usage, Demonstrated understanding of instructions, follow-up care, medications, Prescriptions given X 2. 04:55 Patient left the ED. ll2 Signatures: Dispatcher [employer] EDMS Grady Calabrese, RN Brook Salas Elena RN RN Bridget Pond RN TANYA 2 Philip Carreon MD MD [email or web address] Corrections: (The following items were deleted from the chart) 06/27 23:29 23:29 To radiology for Chest Single View+RAD.RAD.BRZ. ll2 EDMS 06/28 00:47 00:15 BP 162 / 96; Pulse 87bpm; Resp 18bpm; Pulse Ox 100% RA; leonor ea 02:22 01:00 BP 137 / 89; Pulse 84bpm; Resp 17bpm; Pulse Ox 100% RA; ll2 ll2 02:57 06/27 23:56 In radiology for Head Brain Wo Cont+CT.RAD.BRZ. EDMS EDMS
--- NOTE | 2020-06-28 04:28 | EDPHYS ---
Physician Documentation [facility] Name: Abby Hughes Age: 45 yrs Sex: Female : 1975 Arrival Date: 06/27/2020 Time: 22:22 Bed 18 Private MD: ED Physician Philip Carreon HPI: 06/28 00:11 This 45 yrs old Female presents to ER via Ambulatory with complaints of Chest mh7 Pain > 30 y/o. 00:11 The patient or guardian reports chest pain that is located primarily in the anterior mh7 chest wall, left. Onset: 2 day(s) ago. The pain radiates to the left arm. Associated signs and symptoms: Pertinent positives: headache. 00:12 Associated signs and symptoms: Pertinent negatives: abdominal pain, cough, diaphoresis, mh7 dizziness, lower extremity pain, lower extremity swelling, lightheadedness, nausea, near syncope, palpitations, recent travel, shortness of breath, syncope, vomiting. The chest pain is described as sharp. Duration: The patient or guardian reports multiple episodes, that are intermittent, that wax and wane, with no pattern. Modifying factors: The symptoms are alleviated by nothing. the symptoms are aggravated by nothing. Severity of pain: At its worst the pain was moderate yesterday, in the emergency department the pain has improved moderately. 00:12 Associated signs and symptoms: Pertinent positives:. 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 - Social history:: Smoking status: Patient reports the use of cigarette tobacco products, Patient uses alcohol, on a daily basis. ROS: 06/28 00:12 Constitutional: Negative for fever, chills, and weight loss, Eyes: Negative for injury, mh7 pain, redness, and discharge, ENT: Negative for injury, pain, and discharge, Neck: Negative for injury, pain, and swelling, Respiratory: Negative for shortness of breath, cough, wheezing, and pleuritic chest pain, Abdomen/GI: Negative for abdominal pain, nausea, vomiting, diarrhea, and constipation, Back: Negative for injury and pain, : Negative for injury, bleeding, discharge, and swelling, MS/Extremity: Negative for injury and deformity, Skin: Negative for injury, rash, and discoloration, Psych: Negative for depression, anxiety, suicide ideation, homicidal ideation, and hallucinations, Allergy/Immunology: Negative for hives, rash, and allergies, Endocrine: Negative for neck swelling, polydipsia, polyuria, polyphagia, and marked weight changes, Hematologic/Lymphatic: Negative for swollen nodes, abnormal bleeding, and unusual bruising. Exam: 00:12 Head/Face: Normocephalic, atraumatic. Eyes: Pupils equal round and reactive to light, mh7 extra-ocular motions intact. Lids and lashes normal. Conjunctiva and sclera are non-icteric and not injected. Cornea within normal limits. Periorbital areas with no swelling, redness, or edema. Neck: Trachea midline, no thyromegaly or masses palpated, and no cervical lymphadenopathy. Supple, full range of motion without nuchal rigidity, or vertebral point tenderness. No Meningismus. 00:12 Cardiovascular: Regular rate and rhythm with a normal S1 and S2. No gallops, murmurs, or rubs. Normal PMI, no JVD. No pulse deficits. Respiratory: Lungs have equal breath sounds bilaterally, clear to auscultation and percussion. No rales, rhonchi or wheezes noted. No increased work of breathing, no retractions or nasal flaring. Abdomen/GI: Soft, non-tender, with normal bowel sounds. No distension or tympany. No guarding or rebound. No evidence of tenderness throughout. Back: No spinal tenderness. No costovertebral tenderness. Full range of motion. Skin: Warm, dry with normal turgor. Normal color with no rashes, no lesions, and no evidence of cellulitis. MS/ Extremity: Pulses equal, no cyanosis. Neurovascular intact. Full, normal range of motion. Neuro: Awake and alert, GCS 15, oriented to person, place, time, and situation. Cranial nerves II-XII grossly intact. Motor strength 5/5 in all extremities. Sensory grossly intact. Cerebellar exam normal. Normal gait. 00:12 Constitutional: The patient appears in no acute distress, alert, awake, anxious. 00:12 Chest/axilla: Inspection: normal, Palpation: tenderness, that is moderate, of the left lateral anterior chest, that partially reproduces the patient's complaints, Axilla: are normal, Lymph nodes: lymphadenopathy is not appreciated. 00:12 Psych: Behavior/mood is cooperative, anxious, Affect is calm, Oriented to person, place, time, Patient has no thoughts/intents to harm self or others. Judgement / Insight is normal. Memory is normal. Delusions/hallucinations are not present. 01:06 ECG was reviewed by the Attending Physician. [facility] Vital Signs: 06/27 22:58 BP 177 / 99; Pulse 95; Resp 20; Pulse Ox 97% on R/A; Pain 5/10; ll2 06/28 00:00 BP 162 / 96; Pulse 88; Resp 17; Pulse Ox 100% on R/A; ll2 01:00 BP 129 / 79; Pulse 84; Resp 17; Pulse Ox 94% on R/A; ll2 02:00 BP 137 / 89; Pulse 84; Resp 17; Pulse Ox 100% on R/A; ll2 03:00 BP 116 / 63; Pulse 72; Resp 22; Pulse Ox 99% on R/A; ll2 04:00 BP 108 / 65; Pulse 90; Resp 18; Pulse Ox 97% on R/A; ll2 MDM: 06/27 23:31 Patient medically screened. [facility] 06/28 04:24 Differential diagnosis: acute myocardial infarction, acute pericarditis, anxiety, [facility] coronary artery disease chest wall pain, congestive heart failure costochondritis, pericarditis, pneumonia, pneumothorax, pulmonary embolus. HEART Score: History: Slightly Suspicious (0), ECG: Normal (0), Age: < or = 45 years (0), Risk Factors: 1 or 2 risk factors (1), [Hypertension] Troponin: < or = 1 x Normal Limit (0), Total Score = 1. Data reviewed: vital signs, nurses notes, old medical records, lab test result(s), cardiac enzymes, CBC, drug level(s), electrolytes, urinalysis, EKG, radiologic studies, CT scan, plain films. Data interpreted: Pulse oximetry: on room air is 99 %. Interpretation: normal. Counseling: I had a detailed discussion with the patient and/or guardian regarding: the historical points, exam findings, and any diagnostic results supporting the discharge/admit diagnosis, lab results, radiology results, the need for outpatient follow up, to return to the emergency department if symptoms worsen or persist or if there are any questions or concerns that arise at home. Response to treatment: the patient's symptoms have resolved after treatment, the patient's blood pressure is in an acceptable range, mental status has returned to baseline, the patient no longer shows bradycardia, the patient is not short of breath, the patient is not tachycardic, the patient's pain is gone, the patient's temperature has normalized, the patient is now symptom free, patient is well hydrated. 06/27 23:26 Order name: Basic Metabolic Panel; Complete Time: 00:27 06/27 23:26 Order name: CBC with Diff; Complete Time: 00: 06/27 23:26 Order name: LFT's; Complete Time: 00:27 06/27 23:26 Order name: Magnesium; Complete Time: 00: 06/27 23:26 Order name: NT PRO-BNP; Complete Time: 00: 06/27 23:26 Order name: PT-INR; Complete Time: 00: 06/27 23:26 Order name: Troponin (emerg Dept Use Only); Complete Time: 00:27 06/27 23:32 Order name: UDS [facility] 06/27 23:32 Order name: ETOH Level [facility] 06/27 23:33 Order name: Urine Drug Screen; Complete Time: 00:27 [facility] 06/27 23:33 Order name: Alcohol Serum/Plasma; Complete Time: 00:27 [facility] 06/27 23:44 Order name: Urine Culture 06/27 23:50 Order name: Urine --Ancillary (enter results) [facility] 06/27 23:50 Order name: Urine Dipstick--Ancillary (enter results); Complete Time: 00:27 tt 06/27 23:26 Order name: XRAY Chest (1 view) 06/27 23:26 Order name: EKG; Complete Time: 23:27 06/27 23:26 Order name: Cardiac monitoring; Complete Time: 23:29 06/27 23:26 Order name: EKG - Nurse/Tech; Complete Time: 23:30 06/27 23:26 Order name: IV Saline Lock; Complete Time: 00:11 06/27 23:51 Order name: Urine --Ancillary; Complete Time: 00:27 EDMS 06/28 02:33 Order name: Troponin (emerg Dept Use Only); Complete Time: 03:56 7 06/28 02:33 Order name: D-Dimer; Complete Time: 03:56 7 06/28 02:59 Order name: Head Brain Wo Cont EDMS 06/27 23:26 Order name: Labs collected and sent; Complete Time: 00:11 06/27 23:26 Order name: O2 Per Protocol; Complete Time: 00:12 06/27 23:26 Order name: O2 Sat Monitoring; Complete Time: 00:12 06/27 23:32 Order name: Urine Dipstick-Ancillary (obtain specimen); Complete Time: 00:02 [facility] 06/27 23:32 Order name: Urine Test (obtain specimen); Complete Time: 00:02 7 EC:06 Rate is 97 beats/min. Rhythm is regular, Normal Sinus Rhythm. QRS [place] is Normal. [place] mh7 interval is normal. QRS interval is normal. QT interval is normal. No Q waves. T waves are Normal. No ST changes noted. Administered Medications: 06/27 23:53 Drug: Benadryl 50 mg Route: IVP; Site: right antecubital; 2 23:53 Follow up: Response: No adverse reaction 2 23:53 Drug: NS 0.9% 1000 ml Route: IV; Rate: 1000 ml; Site: right antecubital; 2 06/28 04:54 Follow up: Response: No adverse reaction; IV Status: Completed infusion ll2 00:02 Drug: Reglan 10 mg Route: IVP; Site: right antecubital; ll2 02:07 Follow up: Response: No adverse reaction ll2 00:40 Drug: Rocephin 1 grams Route: IV; Rate: 1 calculated rate; Site: right antecubital; ea 04:54 Follow up: IV Status: Completed infusion ll2 00:40 Drug: NS 0.9% 1000 ml Route: IV; Rate: 1 bolus; Site: right antecubital; ea 04:54 Follow up: Response: No adverse reaction; IV Status: Completed infusion ll2 03:36 Drug: TORadol 30 mg Route: IVP; Site: right antecubital; ll2 03:36 Follow up: Response: No adverse reaction ll2 04:54 Follow up: Response: No adverse reaction ll2 Disposition: 06/28/20 04:26 Discharged to Home. Impression: Chest pain, unspecified, Headache, Urinary tract infection, site not specified. - Condition is Stable. - Discharge Instructions: General Headache Without Cause, Urinary Tract Infection, Adult, [id number], Nonspecific Chest Pain, [id number]. - Prescriptions for Zofran ODT 4 mg Oral tablet,disintegrating - place 1 tablet by TRANSLINGUAL route every 8 hours As needed; 6 tablet. Cipro 500 mg Oral Tablet - take 1 tablet by ORAL route every 12 hours for 7 days; 14 tablet. - Medication Reconciliation Form, Thank You Letter, Antibiotic Education, Prescription Opioid Use form. - Follow up: Private Physician; When: 1 - 2 days; Reason: Worsening of condition, Recheck today's complaints, Continuance of care, Re-evaluation by your physician. - Problem is new. - Symptoms have improved. Signatures: Dispatcher [employer] [facility] Grady Calabrese RN RN Radha Ríos RN RN Bridget Pond RN TANYA 2 Philip Carreon MD MD 7 Corrections: (The following items were deleted from the chart) 06/27 23:29 23:27 Chest Single View+RAD.RAD.BRZ ordered. [facility] 06/28 02:57 06/27 23:27 Head Brain Wo Cont+CT.RAD.BRZ ordered. [facility] 06/28 04:55 04:26 06/28/2020 04:26 Discharged to Home. Impression: Chest pain, unspecified; ll2 Headache; Urinary tract infection, site not specified. Condition is Stable. Forms are Medication Reconciliation Form, Thank You Letter, Antibiotic Education, Prescription Opioid Use. Follow up: Private Physician; When: 1 - 2 days; Reason: Worsening of condition, Recheck today's complaints, Continuance of care, Re-evaluation by your physician. Problem is new. Symptoms have improved. mh7
[2020-06-28 05:26] VITALS: BP 108/65; O2SAT 97
--- NOTE | 2020-06-28 07:56 | RAD REPORT ---
EXAM DESCRIPTION: RAD - Chest Single View - 06/28/2020 12:38 am CLINICAL HISTORY: CHEST PAIN COMPARISON: January 2019 TECHNIQUE: AP portable chest image was obtained 06/28/2020 12:38 am . FINDINGS: Lungs are clear. Heart and vasculature are normal. No measurable pleural effusion and no p neumothorax. No acute bony abnormality seen. No acute aortic findings suspected. IMPRESSION: No acute cardiopulmonary process. No significant change from comparison.
--- NOTE | 2020-06-29 13:50 | RAD REPORT ---
EXAM DESCRIPTION: CT - Head Brain Wo Cont - 06/28/2020 4:17 am CLINICAL HISTORY: HEADACHES COMPARISON: None available TECHNIQUE: Axial CT of the head obtained from the skull apex to the skull base without contrast. FINDINGS: No acute intracranial hemorrhage identified. No mass, mass effect, shift of the midline, a bnormal extra-axial fluid collection or CT evidence of acute ischemic change identified. The ventricu lar system is unremarkable. No acute abnormalities of the supratentorial white matter, basal gangli a, cerebellum, or brainstem. The visualized paranasal sinuses and the mastoids are relatively well aerated. No skull fracture id entified. Visualized orbits and globes are unremarkable. IMPRESSION: 1. No acute intracranial abnormality identified. This exam was performed according to our departmental dose-optimization program, which includes autom ated exposure control, adjustment of the mA and/or kV according to patient size and/or use of iterati ve reconstruction technique. Electronically signed by: Ronnie Haider 06/28/2020 3:12 AM CDT Due to temporary technical issues with the PACS/Fluency reporting system, reports are being signed by the in house radiologist without review as a courtesy to ensure prompt reporting. The interpreting r adiologist is fully responsible for the content of the report.
--- OUTSIDE RECORDS SUMMARY | 2020-07-01 02:23 | XMS REPORT | Continuity of Care Document ---
:1975 Author Organization [facility] t Address [address] [place] [address] Care Team Providers Name Role Phone Unavailable Unavailable Unavailable Payers Payer Name Policy Type Policy Number Effective Date Expiration Date S ource Problems This patient has no known problems. Allergies, Adverse Reactions, Alerts Allergy Allergy Status Severity Reaction(s) Onset Inactive Treating Comm ents Source Name Type Date Date Clinician codeine DA Active [place] 2018- [facility] 2[facility]04 [facility] acetamin DA Active [place] 2018-09 [facility] ophen 2[facility]04 [facility] morphine DA Active [place] 2018-09 [facility] 2-04 [facility] 00:[facility] e [facility] No Known DA Active U [facility] Allergie 3-08 Clear s 00:00: [place] 00 [facility] Medications This patient has no known medications. Procedures This patient has no known procedures. Results Test Description Test Time Test Comments Results Result [facility] Comments GASTRIC,BIOPSY 2019-08-29 16:51:00 ----RUN DATE: 08/29/19 [facility] Lab PAGE 1 RUN TIME: 1651 Specimen Inquiry RUN USER: INTERFACE ----PATIENT: MAYNOR ORDAZ LOC: ChristosOBS U #: [id number] AGE/SX: 44/F ROOM: [facility] RE08/24/19REG DR: Joyce Schrader MD : 77 BED: A DIS: 08/28/19 STATUS: DIS IN TLOC: ---- SPEC #: [id number] RECD: 08/28/19 STATUS: MIKE LOPEZJune #: [id number] JEROME: 08/27/[address] [facility] [address]: Clifton Swanson MD ENTERED: 08/28/19 SP TYPE: GASTRIC BX OTHR DR: Jerry Fisher MD, Fernando E MD Qureshi, Salah Uddin MDORDERED: GROSS COPIES TO: Clifton Swanson MD [address] [place] [address] Jerry Fisher MD [address] [place], [place] [id number] Cam Becerra MD [address] [place] [address] [email or web address] Susana Noe MD [address] [facility] [place] [address] PROCEDURES: GROSS (08/29/19-1451) TISSUES: 1. GASTRIC CORPUS - BX 2. ESOPHAGUS, NOS - RANDOM BX CLINICAL HISTORY COLLECTION DATE: 08/27/19 DYSPHAGIA FINAL DIAGNOSIS Stomach, biopsy: GASTRIC MUCOSA WITH MINIMAL CHRONIC INFLAMMATION NO DIAGNOSTIC HELICOBACTER IDENTIFIED (GIEMSA STAIN) NO ULCERATION, INTESTINAL METAPLASIA, DYSPLASIA OR MALIGNANCY IDENTIFIED CONTINUED ON NEXT PAGE ----RUN DATE: 08/29/19 [facility] - Lab PAGE 2 RUN TIME: 1651 Specimen Inquiry RUN USER: INTERFACE ----SPEC #: [id number] PATIENT: MAYNOR ORDAZ #[id number] (Continued) FINAL DIAGNOSIS (Continued) Esophagus, random biopsies: GASTROESOPHAGEAL MUCOSA WITH MINIMAL FOCAL CHRONIC INFLAMMATION NEGATIVE FOR INTESTINAL METAPLASIA, DYSPLASIA OR MALIGNANCY FA/sm D [id number], 50476 MACROSCOPIC The first specimen is received in formalin, labeled with the patient's name, identified as "gastric biopsy", and consists of multiple portions of hermosillo-pink soft tissue measuring 0.9 cm in aggregate, submitted as (1). The second specimen is received in formalin, labeled with the patient's name, identified as "random esophagus biopsy", and consists of multilpe fragments of hermosillo biopsy tissue measuring 0.8 cm in aggregate, entirely submitted as (2). GROSS PERFORMED AT [facility] [address] [place] [address] (p)[phone] MICROSCOPIC All of the stains, including any controls performed, stain appropriately. MICROSCOPIC PERFORMED AT [facility] [address] [place] [address] [phone])[phone] PERFORMING SITE Diagnosis performed at: [facility], [place] [address] [id number] CONTINUED ON NEXT PAGE ----RUN DATE: 08/29/19 [facility] PAGE 3 RUN TIME: 1651 Specimen Inquiry RUN USER: INTERFACE ----SPEC #: [id number] PATIENT: MAYNOR ORDAZ #[id number] (Continued) ---- Signed SIGNATURE ON FILE Asif Yang MD 08/29/19 1651 ---- END OF REPORT KINGS 2019-08-28 17:40:00 ----RUN DATE: 08/28/19 [facility] PAGE 1 RUN TIME: 174 Specimen Inquiry RUN USER: INTERFACE ----PATIENT: MAYNOR ORDAZ LOC: JUAN U #: [id number] AGE/SX: 44/F ROOM: [id number] RE08/24/19REG DR: Joyce Schrader MD : [birth year] BED: A DIS: 08/28/19 STATUS: DIS IN TLOC: ---- SPEC #: [id number] RECD: 08/26/19 STATUS: MIKE CHAMBERLAIN #: [id number] JEROME: 08/26/[address] [facility] [address]: Cam Becerra MD ENTERED: 08/26/19 SP TYPE: GALLBLADD OTHR DR: Jerry Fisher MD, Fernando E MD Qureshi, Salah Uddin MDORDERED: GROSS COPIES TO: Jerry Fisher MD [address] [place] [address] Cam Becerra MD [address] [place] [address] [email or web address] Susana Noe MD [address] [facility] [address] [place] [address] MARKERS: ABNORMAL TISSUE, GALLBLADDER PROCEDURES: GROSS (08/28/19-1322) TISSUES: GALLBLADDER, NOS CLINICAL HISTORY COLLECTION DATE: 08/26/2019 CHOLECYSTITIS FINAL DIAGNOSIS Gallbladder, cholecystectomy: CHRONIC CHOLECYSTITIS CHOLELITHIASIS NEGATIVE FOR MALIGNANCY RRB/selina A CONTINUED ON NEXT PAGE ----RUN DATE: 08/28/19 [facility] PAGE 2 RUN TIME: 174 Specimen Inquiry RUN USER: INTERFACE ----SPEC #: [id number] PATIENT: MAYNOR ORDAZ #[id number] (Continued) FINAL DIAGNOSIS (Continued) [address] MACROSCOPIC The specimen is received in formalin, [...] 0.2 cm. No focal lesions are identified. Medical Coding Manager tissue is submitted in a single cassette. GROSS PERFORMED AT [facility] [address] [place] [address] [phone])[phone] MICROSCOPIC All of the stains, including any controls performed, stain appropriately. MICROSCOPIC PERFORMED AT [facility] [address] [place] [address] [phone])[phone] PERFORMING SITE Diagnosis performed at: [facility], [place] [address] [place] [address] Signed SIGNATURE ON FILE Baldo Marrufo MD 08/28/19 1740 ---- END OF REPORT - XR SWLW KELLI W/C 2019-08-28 FAX: Mallika 14:33:00 [facility] [place]: St: ADM FAX: Diana Campo [phone] Name: MAYNOR ORDAZ [facility] : 1975 Age/S: 44/F [address] [facility] Unit #: [id number] Loc: V.[address] [place] [address] Phys: Diana Campo Acct: [id number] Dis Date: Status: ADM IN PHONE #: [phone] Exam Date: 08/28/2019 1153 FAX #: [phone] Reason: DIFFICULT IN SWALLOW EXAMS: CPT CODE: [id number] XR SWLW FUN W/C V 35441 CLINICAL HISTORY: DIFFICULT IN SWALLOW TECHNIQUE: Fluoroscopic swallow function evaluation in conjunction with speech therapy. Fluoroscopy time 135 seconds;Dose: 6.3 mGy. IMPRESSION: Handling of varying consistencies of barium were evaluated. No penetration or aspiration was reported by speech pathology. Please see separate speech pathology report for complete discussion. at 1433 Reported and signed by: Tommy Chauhan MD CC: Joyce Schrader MD; Diana Campo Technologist: RT DANIEL(R) Trnscrd Date/Time/By: 08/28/2019 (0131) : By: [email or web address] Orig Print D/T: S: 08/28/2019 (9945) PAGE 1 Signed Report BASIC METABOLIC PANEL 2019-08-28 13:26:00 Test Item Value Reference Range Interpretation Comme nts SODIUM (test code = NA) 140 mmol/L 136-145 N POTASSIUM (test code = K) 3.5 mmol/L 3.5-5.1 N CHLORIDE (test code = CL) 110.0 mmol/L 98-107 H CARBON DIOXIDE (test code = 18.0 mmol/L 21-32 L CO2) ANION GAP (test code = GAP) 15.5 10-20 N GLUCOSE (test code = GLU) 105 mg/dL 74-106 N BLOOD UREA NITROGEN (test code 2 mg/dL 7-18 L = BUN) GLOMERULAR FILTRATION RATE > 60 mL/min >=60 E stimated GFR by using (test code = GFR) Modified M DRD formula.Chronic kidney disease is defined as either kidney d amageor GFR <60 mL/min/1.73 m2 for >3 months. CREATININE (test code = CREAT) 0.60 mg/dL 0.55-1.02 N Note change in reference range due to ch hodan in reagent. BUN/CREATININE RATIO (test code 3.1 10-20 L = BUN/CREA) CALCIUM (test code = CA) 9.2 mg/dL 8.5-10.1 N BASIC METABOLIC [id number] 13:09:00 Test Item Value Reference Range Interpretation Comments SODIUM (test code = NA) 140 mmol/L 136-145 N POTASSIUM (test code = K) 3.5 mmol/L 3.5-5.1 N CHLORIDE (test code = CL) 110.0 mmol/L 98-107 H CARBON DIOXIDE (test code = CO2) mmol/L 21-32 ANION GAP (test code = GAP) 10-20 GLUCOSE (test code = GLU) mg/dL 74-106 BLOOD UREA NITROGEN (test code = mg/dL 7-18 BUN) GLOMERULAR FILTRATION RATE (test mL/min >=60 code = GFR) CREATININE (test code = CREAT) mg/dL 0.55-1.02 BUN/CREATININE RATIO (test code 10-20 = BUN/CREA) CALCIUM (test code = CA) mg/dL 8.5-10.1 CBC W/AUTO [id number] 12:54:00 Test Item Value Reference Range Interpretation Comments WHITE BLOOD CELL (test 5.4 K/mm3 4.5-12.5 N code = WBC) RED BLOOD CELL (test 3.93 mill/mm3 3.7-5.2 N code = RBC) HEMOGLOBIN (test code 12.8 gram/dL 11.5-15.5 RESULT VERIFIED BY = HGB) REPEAT ANALYSIS HEMATOCRIT (test code 41.4 % 36.0-46.0 N = HCT) MEAN CELL VOLUME (test 105.3 fL 80-98 H code = MCV) MEAN CELL HGB (test 32.6 picogram 27.0-33.0 N code = MCH) MEAN CELL HGB 30.9 gram/dL 33.0-36.0 L CONCETRATION (test code = MCHC) RED CELL DISTRIBUTION 17.2 % 11.6-16.2 H WIDTH (test code = RDW) RED CELL DISTRIBUTION 66.1 fL 37.0-51.0 H WIDTH SD (test code = RDW-SD) PLATELET COUNT (test 204 K/mm3 150-450 RESULT VERIFIED BY code = PLT) REPEAT ANALYSIS MEAN PLATELET VOLUME 9.4 fL 6.7-11.0 N (test code = MPV) NEUTROPHIL % (test 64.6 % 39.0-69.0 N code = NT%) IMMATURE GRANULOCYTE % 1.3 % 0.0-5.0 N (test code = IG%) LYMPHOCYTE % (test 16.6 % 25.0-55.0 L code = LY%) MONOCYTE % (test code 14.9 % 0.0-10.0 H = MO%) EOSINOPHIL % (test 1.7 % 0.0-5.0 N code = EO%) BASOPHIL % (test code 0.9 % 0.0-1.0 N = BA%) NUCLEATED RBC % (test 0.0 % 0-0 N code = NRBC%) NEUTROPHIL # (test 3.51 K/mm3 1.8-7.7 N code = NT#) IMMATURE GRANULOCYTE # 0.07 x10 3/uL 0-0.03 H (test code = IG#) LYMPHOCYTE # (test 0.90 K/mm3 1.0-5.0 L code = LY#) MONOCYTE # (test code 0.81 K/mm3 0-0.8 H = MO#) EOSINOPHIL # (test 0.09 K/mm3 0.0-0.5 N code = EO#) BASOPHIL # (test code 0.05 K/mm3 0.0-0.2 N = BA#) NUCLEATED RBC # (test 0.00 K/mm3 0.0-0.1 N code = NRBC#) MANUAL DIFF REQUIRED NO (test code = MDIFF) HEPATIC FUNCTION [id number] 08:22:00 Test Item Value Reference Range Interpretation Comments TOTAL PROTEIN (test 6.5 gram/dL 6.4-8.2 N code = PROT) ALBUMIN (test code = 3.0 g/dL 3.4-5.0 L ALB) GLOBULIN (test code = 3.5 gram/dL 2.7-4.2 N GLOB) ALBUMIN/GLOBULIN RATIO 0.9 0.75-1.50 N (test code = A/G) BILIRUBIN TOTAL (test 0.40 mg/dL 0.0-1.0 N code = BILT) BILIRUBIN DIRECT (test 0.16 mg/dL 0.0-0.20 N code = BILD) SGOT/AST (test code = 63 IUnit/L 15-37 H AST) SGPT/ALT (test code = 44 IUnit/L 12-78 N ALT) ALKALINE PHOSPHATASE 71 IUnit/L 45-117 N Note change in TOTAL (test code = reference range due ALKP) to change in reagent. CBC W/AUTO [id number] 07:23:00 Test Item Value Reference Range Interpretation Comments WHITE BLOOD CELL (test code = 6.4 K/mm3 4.5-12.5 N WBC) RED BLOOD CELL (test code = 3.13 mill/mm3 3.7-5.2 L RBC) HEMOGLOBIN (test code = HGB) 10.6 gram/dL 11.5-15.5 L HEMATOCRIT (test code = HCT) 33.7 % 36.0-46.0 L MEAN CELL VOLUME (test code = 107.7 fL 80-98 H MCV) MEAN CELL HGB (test code = MCH) 33.9 picogram 27.0-33.0 H MEAN CELL HGB CONCETRATION 31.5 gram/dL 33.0-36.0 L (test code = MCHC) RED CELL DISTRIBUTION WIDTH 17.2 % 11.6-16.2 H (test code = RDW) RED CELL DISTRIBUTION WIDTH SD 64.1 fL 37.0-51.0 H (test code = RDW-SD) PLATELET COUNT (test code = 153 K/mm3 150-450 N PLT) MEAN PLATELET VOLUME (test code 9.5 fL 6.7-11.0 N = MPV) NEUTROPHIL % (test code = NT%) 66.9 % 39.0-69.0 N IMMATURE GRANULOCYTE % (test 1.3 % 0.0-5.0 N code = IG%) LYMPHOCYTE % (test code = LY%) 17.3 % 25.0-55.0 L MONOCYTE % (test code = MO%) 13.2 % 0.0-10.0 H EOSINOPHIL % (test code = EO%) 0.5 % 0.0-5.0 N BASOPHIL % (test code = BA%) 0.8 % 0.0-1.0 N NUCLEATED RBC % (test code = 0.0 % 0-0 N NRBC%) NEUTROPHIL # (test code = NT#) 4.26 K/mm3 1.8-7.7 N IMMATURE GRANULOCYTE # (test 0.08 x10 3/uL 0-0.03 H code = IG#) LYMPHOCYTE # (test code = LY#) 1.10 K/mm3 1.0-5.0 N MONOCYTE # (test code = MO#) 0.84 K/mm3 0-0.8 H EOSINOPHIL # (test code = EO#) 0.03 K/mm3 0.0-0.5 N BASOPHIL # (test code = BA#) 0.05 K/mm3 0.0-0.2 N NUCLEATED RBC # (test code = 0.00 K/mm3 0.0-0.1 N NRBC#) BASIC METABOLIC [id number] 07:47:00 Test Item Value Reference Range Interpretation Comments SODIUM (test code = 140 mmol/L 136-145 N NA) POTASSIUM (test code 3.7 mmol/L 3.5-5.1 N = K) CHLORIDE (test code = 111.0 mmol/L 98-107 H CL) CARBON DIOXIDE (test 17.0 mmol/L 21-32 L code = CO2) ANION GAP (test code 15.7 10-20 N = GAP) GLUCOSE (test code = 70 mg/dL 74-106 L GLU) BLOOD UREA NITROGEN 3 mg/dL 7-18 L (test code = BUN) GLOMERULAR FILTRATION > 60 mL/min >=60 Estima sunny GFR by RATE (test code = using Meli fied MDRD GFR) formula.Chronic kidney disease is defined as eith er kidney damageor GFR <60 mL/min/1.73 m2 for >3 months. CREATININE (test code 0.60 mg/dL 0.55-1.02 N Note change in = CREAT) reference range due to change in reagent. BUN/CREATININE RATIO 5.0 10-20 L (test code = BUN/CREA) CALCIUM (test code = 8.1 mg/dL 8.5-10.1 L CA) [id number] 07:47:00 Test Item Value Reference Range Interpretation Comments MAGNESIUM (test code = MAG) 1.8 mg/dL 1.8-2.4 N CBC W/AUTO [id number] 07:24:00 Test Item Value Reference Range Interpretation Comments WHITE BLOOD CELL (test code = 4.9 K/mm3 4.5-12.5 N WBC) RED BLOOD CELL (test code = 3.37 mill/mm3 3.7-5.2 L RBC) HEMOGLOBIN (test code = HGB) 11.2 gram/dL 11.5-15.5 L HEMATOCRIT (test code = HCT) 35.2 % 36.0-46.0 L MEAN CELL VOLUME (test code = 104.5 fL 80-98 H MCV) MEAN CELL HGB (test code = MCH) 33.2 picogram 27.0-33.0 H MEAN CELL HGB CONCETRATION 31.8 gram/dL 33.0-36.0 L (test code = MCHC) RED CELL DISTRIBUTION WIDTH 16.1 % 11.6-16.2 N (test code = RDW) RED CELL DISTRIBUTION WIDTH SD 62.0 fL 37.0-51.0 H (test code = RDW-SD) PLATELET COUNT (test code = 154 K/mm3 150-450 N PLT) MEAN PLATELET VOLUME (test code 9.6 fL 6.7-11.0 N = MPV) NEUTROPHIL % (test code = NT%) 66.8 % 39.0-69.0 N IMMATURE GRANULOCYTE % (test 0.8 % 0.0-5.0 N code = IG%) LYMPHOCYTE % (test code = LY%) 16.8 % 25.0-55.0 L MONOCYTE % (test code = MO%) 12.8 % 0.0-10.0 H EOSINOPHIL % (test code = EO%) 1.4 % 0.0-5.0 N BASOPHIL % (test code = BA%) 1.4 % 0.0-1.0 H NUCLEATED RBC % (test code = 0.0 % 0-0 N NRBC%) NEUTROPHIL # (test code = NT#) 3.29 K/mm3 1.8-7.7 N IMMATURE GRANULOCYTE # (test 0.04 x10 3/uL 0-0.03 H code = IG#) LYMPHOCYTE # (test code = LY#) 0.83 K/mm3 1.0-5.0 L MONOCYTE # (test code = MO#) 0.63 K/mm3 0-0.8 N EOSINOPHIL # (test code = EO#) 0.07 K/mm3 0.0-0.5 N BASOPHIL # (test code = BA#) 0.07 K/mm3 0.0-0.2 N NUCLEATED RBC # (test code = 0.00 K/mm3 0.0-0.1 N NRBC#) MANUAL DIFF REQUIRED (test code NO = MDIFF) - HEPA IMAG INCL [id number] 08:18:00 FAX: Yaquelin Alva MD [phone] [place]: B St: [facility] FAX: Martine Diallo [phone] Name: MAYNOR ORDAZ [facility] : 1975 Age/S: 44/F [address] Unit #: [id number] Loc: [place] [address] Phys: Martine Power MD Acct: V [id number] Dis Date: Status: ADM IN PHONE #: [phone] Exam Date: 08/25/2019817 FAX #: [phone] Reason: dilatedgallbladder, nl lfts EXAMS: CPT CODE: [id number] [place] [address] HISTORY: dilated gallbladder, nl lfts EXAM: NUCLEAR MEDICINE HEPATOBILIARY SCAN. TECHNIQUE: After IV injection of 5.8 mCi Tc 99m Choletec, sequential planar images were obtained over the upper abdomen out to 120 minutes. FINDINGS: Homogeneous distribution of radiop harmaceutical in the liver. No accumulation of radiopharmaceutical [...] MD; Martine Power MD Technologist: KAT AVILEZ Trnidrd Date/Time/By: 08/25/2019 (0818) : By: [email or web address] Orig Print D/T: S: 08/25/2019 (0821) PAGE 1 Signed Report- US ABDOMEN [id number] 04:41:00 Name: MAYNOR ORDAZ [facility] : 1975 Age/S: 44 / F [address] Unit #: [id number] Loc: [place] [address] Phys: Cam Becerra MD Acct: [id number] Dis Date: Status: ADM IN PHONE #: [phone] Exam Date: 08/25/2019 0411 FAX #: [phone] Reason: Abd pain EXAMS: CPTCODE: [id number] US ABDOMEN LTD 71585 DICTATION LO CATION: H48 HISTORY: Female, 44 years of age with [...] No gallbladder wall thickening or pericholecystic fluid. Dried Yeast Supervisor re ports a positive sonographic Najera sign. COMMON BILE [...] Cam Becerra MD Technologist: JENNIFER TRAN RDMS [facility] Date/Time: 08/25/2019 (0441) [email or web address] Orig Print D/T: S: 08/25/2019 (0444) Probe: PAGE1 Signed ReportCOMPREHENSIVE METABOLIC [id number] 03:33:00 Test Item Value Reference Range Interpretation Comments SODIUM (test code = 138 mmol/L 136-145 N NA) POTASSIUM (test code = 3.3 mmol/L 3.5-5.1 L K) CHLORIDE (test code = 107.0 mmol/L 98-107 N CL) CARBON DIOXIDE (test 24.0 mmol/L 21-32 N code = CO2) ANION GAP (test code = 10.3 10-20 N GAP) GLUCOSE (test code = 83 mg/dL 74-106 N GLU) BLOOD UREA NITROGEN 9 mg/dL 7-18 N (test code = BUN) GLOMERULAR FILTRATION > 60 mL/min >=60 Estima sunny GFR by RATE (test code = GFR) using Modified MDRD formula.Chronic kidney disease is defined as ei er kidney damageor GFR <60 mL/min/1.73 m2 for >3 months. CREATININE (test code 0.70 mg/dL 0.55-1.02 N Note change in = CREAT) reference range due to change in reagent. BUN/CREATININE RATIO 13.0 10-20 N (test code = BUN/CREA) TOTAL PROTEIN (test 6.5 gram/dL 6.4-8.2 N code = PROT) ALBUMIN (test code = 3.0 g/dL 3.4-5.0 L ALB) GLOBULIN (test code = 3.5 gram/dL 2.7-4.2 N GLOB) ALBUMIN/GLOBULIN RATIO 0.9 0.75-1.50 N (test code = A/G) CALCIUM (test code = 7.2 mg/dL 8.5-10.1 L CA) BILIRUBIN TOTAL (test 0.70 mg/dL 0.0-1.0 N code = BILT) SGOT/AST (test code = 83 IUnit/L 15-37 H AST) SGPT/ALT (test code = 45 IUnit/L 12-78 N ALT) ALKALINE PHOSPHATASE 81 IUnit/L 45-117 N Note change in TOTAL (test code = reference range due ALKP) to change in reagent. [id number] 03:33:00 Test Item Value Reference Range Interpretation Comments MAGNESIUM (test code = MAG) 1.7 mg/dL 1.8-2.4 L CBC W/AUTO [id number] 03:29:00 Test Item Value Reference Range Interpretation Comments WHITE BLOOD CELL (test 4.7 K/mm3 4.5-12.5 N code = WBC) RED BLOOD CELL (test 3.34 mill/mm3 3.7-5.2 L code = RBC) HEMOGLOBIN (test code 11.1 gram/dL 11.5-15.5 L RESULT VERIFIED BY = HGB) REPEAT ANALYSIS HEMATOCRIT (test code 33.9 % 36.0-46.0 L = HCT) MEAN CELL VOLUME (test 101.5 fL 80-98 H code = MCV) MEAN CELL HGB (test 33.2 picogram 27.0-33.0 H code = MCH) MEAN CELL HGB 32.7 gram/dL 33.0-36.0 L CONCETRATION (test code = MCHC) RED CELL DISTRIBUTION 16.2 % 11.6-16.2 N WIDTH (test code = RDW) RED CELL DISTRIBUTION 60.4 fL 37.0-51.0 H WIDTH SD (test code = RDW-SD) PLATELET COUNT (test 148 K/mm3 150-450 L code = PLT) MEAN PLATELET VOLUME 9.9 fL 6.7-11.0 N (test code = MPV) NEUTROPHIL % (test 62.2 % 39.0-69.0 N code = NT%) IMMATURE GRANULOCYTE % 0.4 % 0.0-5.0 N (test code = IG%) LYMPHOCYTE % (test 21.7 % 25.0-55.0 L code = LY%) MONOCYTE % (test code 13.1 % 0.0-10.0 H = MO%) EOSINOPHIL % (test 1.5 % 0.0-5.0 N code = EO%) BASOPHIL % (test code 1.1 % 0.0-1.0 H = BA%) NUCLEATED RBC % (test 0.0 % 0-0 N code = NRBC%) NEUTROPHIL # (test 2.90 K/mm3 1.8-7.7 N code = NT#) IMMATURE GRANULOCYTE # 0.02 x10 3/uL 0-0.03 N (test code = IG#) LYMPHOCYTE # (test 1.01 K/mm3 1.0-5.0 N code = LY#) MONOCYTE # (test code 0.61 K/mm3 0-0.8 N = MO#) EOSINOPHIL # (test 0.07 K/mm3 0.0-0.5 N code = EO#) BASOPHIL # (test code 0.05 K/mm3 0.0-0.2 N = BA#) NUCLEATED RBC # (test 0.00 K/mm3 0.0-0.1 N code = NRBC#) MANUAL DIFF REQUIRED NO (test code = MDIFF) COMPREHENSIVE METABOLIC [id number] 03:21:00 Test Item Value Reference Range Interpretation Comments SODIUM (test code = NA) 138 mmol/L 136-145 N POTASSIUM (test code = K) 3.3 mmol/L 3.5-5.1 L CHLORIDE (test code = CL) 107.0 mmol/L 98-107 N CARBON DIOXIDE (test code = CO2) mmol/L 21-32 ANION GAP (test code = GAP) 10-20 GLUCOSE (test code = GLU) mg/dL 74-106 BLOOD UREA NITROGEN (test code = mg/dL 7-18 BUN) GLOMERULAR FILTRATION RATE (test mL/min >=60 code = GFR) CREATININE (test code = CREAT) mg/dL 0.55-1.02 BUN/CREATININE RATIO (test code 10-20 = BUN/CREA) TOTAL PROTEIN (test code = PROT) gram/dL 6.4-8.2 ALBUMIN (test code = ALB) g/dL 3.4-5.0 GLOBULIN (test code = GLOB) gram/dL 2.7-4.2 ALBUMIN/GLOBULIN RATIO (test 0.75-1.50 code = A/G) CALCIUM (test code = CA) mg/dL 8.5-10.1 BILIRUBIN TOTAL (test code = mg/dL 0.0-1.0 BILT) SGOT/AST (test code = AST) IUnit/L 15-37 SGPT/ALT (test code = ALT) IUnit/L 12-78 ALKALINE PHOSPHATASE TOTAL (test IUnit/L 45-117 code = ALKP) [id number] 03:21:00 Test Item Value Reference Range Interpretation Comments MAGNESIUM (test code = MAG) mg/dL 1.8-2.4 [id number] 23:27:00 Test Item Value Reference Range Interpretation Comments TROPONIN-I (test code = TROPI) <0.015 ng/mL 0-0.045 N COMMENTS TO STATOR WINDER: COLLECT 3 HOURS AFTER PREVIOUS [id number] 19:56:00 Test Item Value Reference Range Interpretation Comments TROPONIN-I (test code = TROPI) <0.015 ng/mL 0-0.045 N COMMENTS TO STATOR WINDER: COLLECT 3 HOURS AFTER PREVIOUS SAMPLETHYROID STIMULATING [id number] 16:41:00 Test Item Value Reference Range Interpretation Comments THYROID STIMULATING 0.738 uIU/mL 0.36-3.74 N TSH REFE RENCE HORMONE (test code = RANGES: EUTHYROID: TSH) 0.35 - 4.3 mIU/mL HYPO : > 5.5 mIU/mL HYPER : < 0.35 mIU/mL - CT ABD PELVIS [id number] 14:33:00 Name: MAYNOR ORDAZ [facility] : 1975 Age/S: 44 / F [place] Unit #: [id number] Loc: [place] [address] Phys: Martine Power MD Acct: [id number] Dis Date: Status: REG ER PHONE #: [phone] Exam Date: 08/24/2019 1419 FAX #: [phone] Reason: vomiting EXAMS: CPT CODE: [id number] CT ABD PELVIS W/CONT 91247 HISTORY: vomiting TECHNIQUE: Immediate and delayed 5 [...] 1 Signed Report (CONTINUED) Name: MAYNOR ORDAZ [facility] : 1975 Age/S: 44 / F [place] Unit #: [id number] Loc: [place] [address] Phys: Martine Power MD Acct: [id number] Dis Date: Status: REG ER PHONE #: [phone] Exam Date: 08/24/2019 1415 FAX #: [phone]: vomiting EXAMS: CPT CODE: [id number] CT ABD PELVIS W/CONT 95724 <Continued> CC: Martine Power MD Technologist:Ольга Wisdom RT(R),CT; CTDI: DLP: Trnscb Date/Time: 08/24/2019 (1433) bebeto [id number] Orig Print D/T: S: 08/24/2019 (2459) PAGE 2 Signed Report- CT CHEST W/[id number] 14:28:00 Name: MAYNOR ORDAZ [facility] : 1975 Age/S: 44 / F [address] [facility] Unit #: [id number] Loc: [place] [address] Phys: Martine Power MD Acct: [id number] Dis Date: Status: REG ER PHONE #: [phone] Exam Date: 08/24/20195 FAX #: [phone] Reason: vomiting EXAMS: CPTCODE: [id number] CT CHEST W/CONTRAST 76671 HISTORY: vomiting TECHNIQUE: [address] [...] RT(R),CT; CTDI: DLP: Trnscb Date/Time: 08/24/2019 (1428) [email or web address] Orig Print D/T: S: 08/24/2019 (1431) PAGE 1 Signed ReportBASIC METABOLIC [id number] 13:52:00 Test Item Value Reference Range Interpretation Comments SODIUM (test code = 137 mmol/L 136-145 N NA) POTASSIUM (test code 2.8 mmol/L 3.5-5.1 LL Results called to = K) [id number] by OZ ThomasGP 08/24/19 1311Critical re sults verified and re ad back by Nurse? Y CHLORIDE (test code = 100.0 mmol/L 98-107 N CL) CARBON DIOXIDE (test 23.0 mmol/L 21-32 N code = CO2) ANION GAP (test code 16.8 10-20 N = GAP) GLUCOSE (test code = 139 mg/dL 74-106 H GLU) BLOOD UREA NITROGEN 13 mg/dL 7-18 N (test code = BUN) GLOMERULAR FILTRATION 54 mL/min >=60 Estima sunny GFR by RATE (test code = using Meli fied MDRD GFR) formula.Chronic kidney disease is defined as eith er kidney damageor GFR <60 mL/min/1.73 m2 for >3 months. CREATININE (test code 1.10 mg/dL 0.55-1.02 H Note change in = CREAT) reference range due to change in reagent. BUN/CREATININE RATIO 11.6 10-20 N (test code = BUN/CREA) CALCIUM (test code = 8.7 mg/dL 8.5-10.1 N CA) HEPATIC FUNCTION [id number] 13:52:00 Test Item Value Reference Range Interpretation Comments TOTAL PROTEIN (test 8.2 gram/dL 6.4-8.2 N code = PROT) ALBUMIN (test code = 3.8 g/dL 3.4-5.0 N ALB) GLOBULIN (test code = 4.4 gram/dL 2.7-4.2 H GLOB) ALBUMIN/GLOBULIN RATIO 0.9 0.75-1.50 N (test code = A/G) BILIRUBIN TOTAL (test 1.50 mg/dL 0.0-1.0 H code = BILT) BILIRUBIN DIRECT (test 0.47 mg/dL 0.0-0.20 H code = BILD) SGOT/AST (test code = 134 IUnit/L 15-37 H AST) SGPT/ALT (test code = 62 IUnit/L 12-78 N ALT) ALKALINE PHOSPHATASE 109 IUnit/L 45-117 N Note change in TOTAL (test code = reference range due ALKP) to change in reagent. [id number] 13:52:00 Test Item Value Reference Range Interpretation Comments LIPASE (test code = LIP) 145 U/L 73.0-393.0 N [id number] 13:52:00 Test Item Value Reference Range Interpretation Comments MAGNESIUM (test code = MAG) 1.5 mg/dL 1.8-2.4 L HCG SERUM [id number] 13:52:00 Test Item Value Reference Range Interpretation Comments HCG SERUM QUAL (test NEGATIVE NEGATIVE This HC GQL test is NOT code = HCGQL) applicable for MALE patients.Check with nurse about probable order error.If Tumor Marker Test needed, nu rse should order test "HCG TU"(Test #[id number])---- - [id number] 13:52:00 Test Item Value Reference Range Interpretation Comments TROPONIN-I (test code = TROPI) <0.015 ng/mL 0-0.045 N URINALYSIS [id number] 13:41:00 Test Item Value Reference Range Interpretation Comments UA COLOR (test code = ALEN YELLOW A COLU) UA APPEARANCE (test code Cloudy CLEAR A = APPU) UA GLUCOSE DIPSTICK (test NEGATIVE mg/dL NEGATIVE code = DGLUU) UA BILIRUBIN DIPSTICK 0.5 (1+) mg/dL NEGATIVE A (test code = BILU) UA KETONE DIPSTICK (test 10 (1+) mg/dL NEGATIVE A code = KETU) UA SPECIFIC GRAVITY (test 1.031 1.001-1.035 code = SGU) UA BLOOD DIPSTICK (test 0.2 mg/dL (2+) mg/dL NEGATIVE A code = MARTHA) UA PH DIPSTICK (test code 6.0 5.0-8.0 = JANESSA) UA PROTEIN DIPSTICK (test 100 (2+) mg/dL NEGATIVE A code = PROU) UA UROBILINIOGEN DIPSTICK 3.0 (1+) mg/dL NEGATIVE A (test code = URO) UA NITRITE DIPSTICK (test NEGATIVE NEGATIVE code = SANTI) UA LEUKOCYTE ESTERASE W 500 Yahaira/uL (3+) NEGATIVE A REFLEX (test code = Yahaira/uL LEUUR) UA WBC (test code = WBCU) 21-50 per HPF 0-5 A UA RBC (test code = RBCU) 3-5 #/HPF 0-5 UA EPITHELIAL CELLS (test MANY per HPF FEW code = EPIU) UA BACTERIA (test code = MODERATE #/HPF NONE A BACU) UA HYALINE CAST (test 3-5 #/LPF 0-5 code = HYALU) UA MUCUS (test code = MODERATE #/LPF FEW A MUCU) Urine Source? Clean CatchDRUGS OF ABUSE SCREEN [id number] 13:41:00 Test Item Value Reference Range Interpretation Comments URN COCAINE (test NEGATIVE <300 ng/mL code = COCAURN) URN CANNABINOIDS POSITIVE <50 ng/mL A This test p rovides only a (test code = preliminary robert t result. CANNABURN) A morespecific alternate chemical method must be used in order t oobtain a confirmed cathleen tical result. Gas chromatography/ mass spectrometry (G C/MS) is thepreferred co nfirmatory method. Other chemical confirmationmet hods are available. Cli nical consideration a nd professional ju dgment should be appli ed to any drug of abusete st result, particularly wh en preliminary pos itive resultsare used.Unconfirme d screening resul ts must not be used fornon-medical purposes (e.g., employme nt testing, legalt esting). URN AMPHETAMINE (test NEGATIVE <1000 ng/mL code = AMPHETURN) URN BARBITURATE (test NEGATIVE <200 ng/mL code = BARBITURN) URN BENZODIAZEPINE POSITIVE <200 ng/mL A This test provides only a (test code = preliminary robert t result. BENZOURN) A morespecific alternate chemical method must be used in order t oobtain a confirmed cathleen tical result. Gas chromatography/ mass spectrometry (G C/MS) is thepreferred co nfirmatory method. Other chemical confirmationmet hods are available. Cli nical consideration a nd professional ju dgment should be appli ed to any drug of abusete st result, particularly wh en preliminary pos itive resultsare used.Unconfirme d screening resul ts must not be used fornon-medical purposes (e.g., employme nt testing, legalt esting). URN OPIATES (test NEGATIVE <300 ng/mL code = OPIATURN) URN PHENCYCLIDINE NEGATIVE <25 ng/mL (PCP) (test code = PHENCURN) URN METHADONE (test NEGATIVE <300 ng/mL code = METHAURN) Urine Source? Clean CatchURINALYSIS [id number] 13:20:00 Test Item Value Reference Range Interpretation Comments UA COLOR (test code = ALEN YELLOW A COLU) UA APPEARANCE (test code Cloudy CLEAR A = APPU) UA GLUCOSE DIPSTICK (test NEGATIVE mg/dL NEGATIVE code = DGLUU) UA BILIRUBIN DIPSTICK 0.5 (1+) mg/dL NEGATIVE A (test code = BILU) UA KETONE DIPSTICK (test 10 (1+) mg/dL NEGATIVE A code = KETU) UA SPECIFIC GRAVITY (test 1.031 1.001-1.035 code = SGU) UA BLOOD DIPSTICK (test 0.2 mg/dL (2+) mg/dL NEGATIVE A code = MARTHA) UA PH DIPSTICK (test code 6.0 5.0-8.0 = JANSESA) UA PROTEIN DIPSTICK (test 100 (2+) mg/dL NEGATIVE A code = PROU) UA UROBILINIOGEN DIPSTICK 3.0 (1+) mg/dL NEGATIVE A (test code = URO) UA NITRITE DIPSTICK (test NEGATIVE NEGATIVE code = SANTI) UA LEUKOCYTE ESTERASE W 500 Yahaira/uL (3+) NEGATIVE A REFLEX (test code = Yahaira/uL LEUUR) UA WBC (test code = WBCU) 21-50 per HPF 0-5 A UA RBC (test code = RBCU) 3-5 #/HPF 0-5 UA EPITHELIAL CELLS (test MANY per HPF FEW code = EPIU) UA BACTERIA (test code = MODERATE #/HPF NONE A BACU) UA HYALINE CAST (test 3-5 #/LPF 0-5 code = HYALU) UA MUCUS (test code = MODERATE #/LPF FEW A MUCU) Urine Source? Clean CatchDRUGS OF ABUSE SCREEN [id number] 13:20:00 Test Item Value Reference Range Interpretation Comments URN COCAINE (test code = COCAURN) <300 ng/mL URN CANNABINOIDS (test code = <50 ng/mL CANNABURN) URN AMPHETAMINE (test code = AMPHETURN) <1000 ng/mL URN BARBITURATE (test code = BARBITURN) <200 ng/mL URN BENZODIAZEPINE (test code = <200 ng/mL BENZOURN) URN OPIATES (test code = OPIATURN) <300 ng/mL URN PHENCYCLIDINE (PCP) (test code = <25 ng/mL PHENCURN) URN METHADONE (test code = METHAURN) <300 ng/mL Urine Source? Clean CatchURINALYSIS [id number] 13:18:00 Test Item Value Reference Range Interpretation Comments UA COLOR (test code = YELLOW COLU) UA APPEARANCE (test code Cloudy CLEAR A = APPU) UA GLUCOSE DIPSTICK (test NEGATIVE mg/dL NEGATIVE code = DGLUU) UA BILIRUBIN DIPSTICK 0.5 (1+) mg/dL NEGATIVE A (test code = BILU) UA KETONE DIPSTICK (test 10 (1+) mg/dL NEGATIVE A code = KETU) UA SPECIFIC GRAVITY (test 1.031 1.001-1.035 code = SGU) UA BLOOD DIPSTICK (test 0.2 mg/dL (2+) mg/dL NEGATIVE A code = MARTHA) UA PH DIPSTICK (test code 6.0 5.0-8.0 = JANESSA) UA PROTEIN DIPSTICK (test 100 (2+) mg/dL NEGATIVE A code = PROU) UA UROBILINIOGEN DIPSTICK 3.0 (1+) mg/dL NEGATIVE A (test code = URO) UA NITRITE DIPSTICK (test NEGATIVE NEGATIVE code = SANTI) UA LEUKOCYTE ESTERASE W 500 Yahaira/uL (3+) NEGATIVE A REFLEX (test code = Yahaira/uL LEUUR) UA WBC (test code = WBCU) per HPF 0-5 UA RBC (test code = RBCU) per HPF 0-5 UA EPITHELIAL CELLS (test per HPF Few code = EPIU) UA BACTERIA (test code = per HPF NONE BACU) Urine Source? Clean CatchDRUGS OF ABUSE SCREEN [id number] 13:18:00 Test Item Value Reference Range Interpretation Comments URN COCAINE (test code = COCAURN) <300 ng/mL URN CANNABINOIDS (test code = <50 ng/mL CANNABURN) URN AMPHETAMINE (test code = AMPHETURN) <1000 ng/mL URN BARBITURATE (test code = BARBITURN) <200 ng/mL URN BENZODIAZEPINE (test code = <200 ng/mL BENZOURN) URN OPIATES (test code = OPIATURN) <300 ng/mL URN PHENCYCLIDINE (PCP) (test code = <25 ng/mL PHENCURN) URN METHADONE (test code = METHAURN) <300 ng/mL Urine Source? Clean CatchBASIC METABOLIC [id number] 13:11:00 Test Item Value Reference Range Interpretation Comments SODIUM (test code = 137 mmol/L 136-145 N NA) POTASSIUM (test code 2.8 mmol/L 3.5-5.1 LL Results called to = K) [id number] by OZ ThomasGP 08/24/19 1311Critical re sults verified and re ad back by Nurse? Y CHLORIDE (test code = 100.0 mmol/L 98-107 N CL) CARBON DIOXIDE (test 23.0 mmol/L 21-32 N code = CO2) ANION GAP (test code 16.8 10-20 N = GAP) GLUCOSE (test code = 139 mg/dL 74-106 H GLU) BLOOD UREA NITROGEN 13 mg/dL 7-18 N (test code = BUN) GLOMERULAR FILTRATION 54 mL/min >=60 Estima sunny GFR by RATE (test code = using Meli fied MDRD GFR) formula.Chronic kidney disease is defined as ei er kidney damageor GFR <60 mL/min/1.73 m2 for >3 months. CREATININE (test code 1.10 mg/dL 0.55-1.02 H Note change in = CREAT) reference range due to change in reagent. BUN/CREATININE RATIO 11.6 10-20 N (test code = BUN/CREA) CALCIUM (test code = 8.7 mg/dL 8.5-10.1 N CA) HEPATIC FUNCTION [id number] 13:11:00 Test Item Value Reference Range Interpretation Comments TOTAL PROTEIN (test 8.2 gram/dL 6.4-8.2 N code = PROT) ALBUMIN (test code = 3.8 g/dL 3.4-5.0 N ALB) GLOBULIN (test code = 4.4 gram/dL 2.7-4.2 H GLOB) ALBUMIN/GLOBULIN RATIO 0.9 0.75-1.50 N (test code = A/G) BILIRUBIN TOTAL (test 1.50 mg/dL 0.0-1.0 H code = BILT) BILIRUBIN DIRECT (test 0.47 mg/dL 0.0-0.20 H code = BILD) SGOT/AST (test code = 134 IUnit/L 15-37 H AST) SGPT/ALT (test code = 62 IUnit/L 12-78 N ALT) ALKALINE PHOSPHATASE 109 IUnit/L 45-117 N Note change in TOTAL (test code = reference range due ALKP) to change in reagent. [id number] 13:11:00 Test Item Value Reference Range Interpretation Comments LIPASE (test code = LIP) 145 U/L 73.0-393.0 N [id number] 13:11:00 Test Item Value Reference Range Interpretation Comments MAGNESIUM (test code = MAG) 1.5 mg/dL 1.8-2.4 L HCG SERUM [id number] 13:11:00 Test Item Value Reference Range Interpretation Comments HCG SERUM QUAL (test code = HCGQL) NEGATIVE [id number] 13:11:00 Test Item Value Reference Range Interpretation Comments TROPONIN-I (test code = TROPI) <0.015 ng/mL 0-0.045 N PROTHROMBIN [id number] 13:10:00 Test Item Value Reference Range Interpretation Comments PROTHROMBIN TIME 11.6 seconds 9.0-14.0 N PATIENT (test code = PTP) INTERNATIONAL NORMAL 1.0 0.8-1.2 N The the rapeutic range RATIO (test code = for oral INR) anticoagulant t herapy formost indicat ions is an internati onal normalized rati o (INR)of between 2.0 and 3.0. The recommended therapeutic INR range for various cli nical situations is l isted below: Clinical Situat ion INR range Pulmonary embol ism treatment (2.0-3.0)Venou s thrombosis treatmentVenous thrombosis prophylaxis (hi gh risk surgery)Prevent ion of systemic emboli sm from: A cute myocardial infa rction Valvula r heart disease Atrial fibrilla tion Mechanical pros thetic heart valves (2.5-3.5) IS PATIENT ON ANTICOAGULANTS? NTHROMBOPLASTIN TIME [id number] 13:10:00 Test Item Value Reference Range Interpretation Comments THROMBOPLASTIN TIME PARTIAL 29.0 seconds 25.0-36.5 N (test code = PTT) IS PATIENT ON ANTICOAGULANTS? NCBC W/O [id number] 12:48:00 Test Item Value Reference Range Interpretation Comments WHITE BLOOD CELL (test code = 6.9 K/mm3 4.5-12.5 N WBC) RED BLOOD CELL (test code = 4.36 mill/mm3 3.7-5.2 N RBC) HEMOGLOBIN (test code = HGB) 14.3 gram/dL 11.5-15.5 N HEMATOCRIT (test code = HCT) 43.4 % 36.0-46.0 N MEAN CELL VOLUME (test code = 99.5 fL 80-98 H MCV) MEAN CELL HGB (test code = MCH) 32.8 picogram 27.0-33.0 N MEAN CELL HGB CONCETRATION 32.9 gram/dL 33.0-36.0 L (test code = MCHC) RED CELL DISTRIBUTION WIDTH 16.0 % 11.6-16.2 N (test code = RDW) PLATELET COUNT (test code = 194 K/mm3 150-450 N PLT) MEAN PLATELET VOLUME (test code 10.0 fL 6.7-11.0 N = MPV) CBC W/O [id number] 12:47:00 Test Item Value Reference Range Interpretation Comments WHITE BLOOD CELL (test code = K/mm3 4.5-12.5 WBC) RED BLOOD CELL (test code = RBC) mill/mm3 3.7-5.2 HEMOGLOBIN (test code = HGB) 14.3 gram/dL 11.5-15.5 N HEMATOCRIT (test code = HCT) 43.4 % 36.0-46.0 N MEAN CELL VOLUME (test code = fL 80-98 MCV) MEAN CELL HGB (test code = MCH) picogram 27.0-33.0 MEAN CELL HGB CONCETRATION (test gram/dL 33.0-36.0 code = MCHC) RED CELL DISTRIBUTION WIDTH % 11.6-16.2 (test code = RDW) PLATELET COUNT (test code = PLT) K/mm3 150-450 MEAN PLATELET VOLUME (test code fL 6.7-11.0 = MPV) - XR CHEST 1 [id number] 12:17:00 FAX: Martine Diallo [phone] [place]: St: REG Name: MAYNOR ORDAZ [facility] : 1975 Age/S: 44/F [address] [facility] Unit#: [id number] Loc: [place] [address] Phys: Martine Power MD Acct: [id number] Dis Date: Status: REG ER PHONE #: [phone] Exam Date: 08/24/2019 1200 FAX #: [phone] Reason: Abdominal Pain EXAMS: CPT CODE: [id number] XR CHEST 1 V 59760 HISTORY: Abdominal Pain TECHNIQUE: AP chest x-ray COMPARISON: None FINDINGS: No airspace consolidation or pleural effusion. Normal heart size. Mediastinal silhouette is unremarkable. Visualized osseous structures are grossly intact. IMPRESSION: No radiographic evidence of acute cardiopulmonary process. LOCATION: at 1217 Reported and signed by: Quynh Leonard D.O. CC: Martine Power MD Technologist: Linette Robles RT(R); GARRETT TERRAZAS RT(R) Trnscrd Date/Time/By: 08/24/2019 (4976) : By: [email or web address] Orig Print D/T: S: 08/24/2019 (9704) PAGE 1 Signed Report- XR NECK SOFT [id number] 12:16:00 FAX: Martine Diallo [phone] [place]: St: REG Name: MAYNOR ORDAZ [facility] : 1975 Age/S: 44/F [address] [place] [address] Unit#: [id number] Loc: [place] [address] Phys: Martine Power MD Acct: [id number] Dis Date: Status: REG ER PHONE #: [phone] Exam Date: 08/24/2019 1200 FAX #: [phone] Reason: sensation of soething stuck in throat EXAMS: CPT CODE: [id number] XR NECK SOFT TISSUE [id number] HISTORY: sensation of something stuck in throat [...] RT(R); GARRETT TERRAZAS RT(R) Trnscrd Date/Time/By: 08/24/2019 (0940) : By: [email or web address] Orig Print D/T: S: 08/24/2019 (5536) PAGE 1 Signed Report
== END 2020-06-28 04:55 | disposition home or self-care (01) ==
LOC: ER 22:21
DX: N39.0 Urinary tract infection, site not specified (principal); R51.9 Headache, unspecified; F10.20 Alcohol dependence, uncomplicated; I10 Essential (primary) hypertension; F17.210 Nicotine dependence, cigarettes, uncomplicated
CPT/HCPCS: 36415; 70450; 71045; 80048; 80076; 80307; 80320; 81003; 81025; 83735; 83880; 84484; 85025; 85379; 85610; 87077; 87086; 87088; 87186; 93005; 96361; 96365; 96366; 96375; 99285; J0696; J1200; J2765; J7030